=== PATIENT | male | born 1960 | race African-American/Black ===

== ENCOUNTER 2017-03-15 19:17 | Inpatient (IN) | payer MEDICAID ==
--- NOTE | 2017-03-15 19:47 | CPEKG ---
Heart Rate: 113 RR Interval: 531 P-R Interval: 140 QRSD Interval: 150 QT Interval: 396 QTC Interval: 543 P [place]: 68 QRS [place]: -57 T Wave [place]: 131 EKG Severity - ABNORMAL ECG - EKG Impression: SINUS TACHYCARDIA EKG Impression: BIATRIAL ABNORMALITIES EKG Impression: LEFT BUNDLE BRANCH BLOCK Electronically Signed By: Harsh Parra 15-Mar-2017 23:01:15
--- NOTE | 2017-03-15 19:47 | EDPHY ---
H & P Time Seen by Provider: 03/15/17 19:47 HPI/ROS: CHIEF COMPLAINT: Shortness of breath HISTORY OF PRESENT ILLNESS: This 56-year-old man moved from [place] to [place] 1 year ago. He has a history of congestive heart failure or fluid on his lungs , COPD or asthma and hypertension. His only medication is ProAir. He does not have history of venous thromboembolism. Over the last week he started getting slowly more short of breath and then last night he woke up in the middle the night short of breath and had to stand up for 15 minutes feel better. This is not associated with chest pain. He has had a little bit of yellow sputum and cough over the past week. No leg swelling or leg pain. REVIEW OF SYSTEMS: Eye: no change in vision ENT: no sore throat Cardiac: No palpitations or syncope Pulmonary: HPI Abdomen: no vomiting, diarrhea, abdominal pain Musculoskeletal: no back pain Skin: no rash Neuro: no headache Constitutional: no fever : no urinary symptoms A comprehensive 10 point review of systems is otherwise negative aside from elements mentioned in the history of present illness. PAST MEDICAL HISTORY: CHF, COPD, hypertension Social history: Tobacco smoker General Appearance: Alert and conversant, cooperative. Eyes: No scleral icterus. ENT, Mouth: Normal mucous membranes. Respiratory: Basilar crackles but speaks in full sentences Cardiovascular: Regular rate and rhythm. Tachycardic, no murmur. Gastrointestinal: Abdomen is soft and non tender. Neurological: Alert and oriented x3. Normally conversant. Face symmetric, normal movement and sensation in all extremities. Skin: Warm and dry, no rashes. Musculoskeletal: No peripheral edema and no joint swelling. No calf tenderness. Psychiatric: Not agitated. Emergency Department course/MDM: EKG abnormal reviewed with Jimenez at 1999. Plan for EKG, troponin, D-dimer and BNP. Chest x-ray 2047: Labs reviewed including BNP greater than 3000, elevated D-dimer, chest x- ray showing pulmonary edema. Plan to admit to the hospital for treatment of CHF. CT angio to evaluate for pulmonary embolism; low dose contrast used. D-dimer greater than 3. Benefit of knowing if PE present greater than contrast risk in my clinical judgment. 2099: Results discussed with the patient, admission hospitalist. 2039: lasix 20mg IV, nitroglycerin drip started. CT shows no pulmonary embolism , multifocal infiltrates which could be pneumonia or pulmonary edema. Clinically I think CHF is much more likely than pneumonia. Smoking Status: Current some day smoker Constitutional: Initial Vital Signs Temperature (C) 36.4 C 03/15/17 19:22 Heart Rate 119 H 03/15/17 19:22 Respiratory Rate 18 03/15/17 19:22 Blood Pressure 118/113 H 03/15/17 19:22 O2 Sat (%) 96 03/15/17 19:22 O2 Delivery Mode Nasal Cannula O2 (L/minute) 2 Allergies/Adverse Reactions: No Known Allergies Allergy (Unverified 03/15/17 19:26) Home Medications: Medication Instructions Recorded Proair Hfa 03/15/17 Medical Decision Making - Diagnostics EKG Interpretation: 12-lead EKG interpreted by me; official reading is in trace master. My interpretation is sinus tachycardia with left bundle branch block. Imaging Results: Imaging Impressions Chest X-Ray 03/15/17 19:56 Impression: 1. CHF with early pulmonary edema although an underlying pneumonia cannot be excluded. Chest/Thorax CTA 03/15/17 21:02 Impression: 1. No evidence for acute pulmonary embolic disease. 2. Patchy peripheral infiltrates raising the possibility of developing multifocal pneumonia vs. patchy peripheral pulmonary edema from failure. Results called to Dr. Parra at 10:08 PM. General information for patients regarding this examination can be found at [email or web address]. If you have questions or comments about this report, please contact me at (hospital) or [phone] (cell). Differential Diagnosis: Differential diagnosis considered for shortness of breath including but not limited to pulmonary infectious process, COPD, asthma, pulmonary embolus and congestive heart failure. Consult/Admit Bed Type: [place] [address] Critical Care Time: Critical care time spent by me, Dr. Parra, exclusively with the care of this patient was 30 minutes, exclusive of PA or DIRECTOR OF REHABILITATION time and exclusive of separate procedures. The organ system at risk was cardiopulmonary and I ordered IV Lasix , IV nitroglycerin, supplemental oxygen, multiple diagnostic studies, discussion with hospitalist; to stabilize the patient and prevent worsening of the patient's condition. - Data Points Laboratory Results: Laboratory Results 03/15/17 19:55 03/15/17 19:55 03/15/17 03/15/17 03/15/17 19:55 19:55 19:55 WBC 7.78 10^3/uL 10^3/uL (3.80-9.50) RBC 4.69 10^6/uL 10^6/uL (4.40-6.38) Hgb 15.1 g/dL g/dL (13.7-17.5) Hct 43.1 % % (40.0-51.0) MCV 91.9 fL fL (81.5-99.8) MCH 32.2 pg pg (27.9-34.1) MCHC 35.0 g/dL g/dL (32.4-36.7) RDW 13.4 % % (11.5-15.2) Plt Count 283 10^3/uL 10^3/uL (150-400) MPV 9.0 fL fL (8.7-11.7) Neut % (Auto) 69.0 % % (39.3-74.2) Lymph % (Auto) 19.3 % % (15.0-45.0) [place] % (Auto) 9.4 % % (4.5-13.0) Eos % (Auto) 1.0 % % (0.6-7.6) Baso % (Auto) 0.9 % % (0.3-1.7) Nucleat RBC Rel Count 0.0 % % (0.0-0.2) Absolute Neuts (auto) 5.37 10^3/uL 10^3/uL (1.70-6.50) Absolute Lymphs (auto) 1.50 10^3/uL 10^3/uL (1.00-3.00) Absolute Monos (auto) 0.73 10^3/uL 10^3/uL (0.30-0.80) Absolute Eos (auto) 0.08 10^3/uL 10^3/uL (0.03-0.40) Absolute Basos (auto) 0.07 10^3/uL 10^3/uL (0.02-0.10) Absolute Nucleated RBC 0.00 10^3/uL 10^3/uL (0-0.01) Immature Gran % 0.4 % % (0.0-1.1) Immature Gran # 0.03 10^3/uL 10^3/uL (0.00-0.10) D-Dimer 3.21 ug/mLFEU H ug/mLFEU (0.00-0.50) Sodium 141 mEq/L mEq/L (134-144) Potassium 4.5 mEq/L mEq/L (3.5-5.2) Chloride 109 mEq/L mEq/L (97-110) Carbon Dioxide 21 mEq/l L mEq/l (22-31) Anion Gap 11 mEq/L mEq/L (8-16) BUN 28 mg/dL H mg/dL (7-23) Creatinine 1.5 mg/dL H mg/dL (0.7-1.3) Estimated GFR 48 Glucose 105 mg/dL H mg/dL (70-100) Calcium 9.1 mg/dL mg/dL (8.5-10.4) Troponin I 0.025 ng/mL ng/mL (0-0.034) NT-Pro-B Natriuret Pep 3030 pg/mL H pg/mL (0-125) Medications Given: Discontinued Medications Furosemide (Lasix Injection) 20 mg IVP EDNOW ONE Stop: 03/15/17 22:38 Last Admin: 03/15/17 22:45 Dose: 20 mg Nitroglycerin/Dextrose (Nitroglycerin 200 Mcg/Ml (Premix)) 250 mls @ 0 mls/hr IV EDNOW ONE; Titrate PRN Reason: Protocol Stop: 03/15/17 22:38 Last Admin: 03/15/17 22:50 Dose: 250 mls Departure - Departure Disposition: [facility] Inpatient Acute Clinical Impression: Acute exacerbation of congestive heart failure Qualifiers: Congestive heart failure type: unspecified congestive heart failure type Qualified Code(s): I50.9 - Heart failure, unspecified Condition: Good
[2017-03-15 20:04] LABS: % IMMATURE GRANULYOCYTES 0.4 % (0.0-1.1); ABSOLUTE IMMATURE GRANULOCYTES 0.03 10^3/uL (0.00-0.10); ADD DIFF? NO; ADD MORPH? NO; ADD SCAN? NO; ATYPICAL LYMPHOCYTE FLAG 40 (0-99); FRAGMENT RBC FLAG 0 (0-99); HEMATOCRIT 43.1 % (40.0-51.0); HEMOGLOBIN 15.1 g/dL (13.7-17.5); LEFT SHIFT FLG 0 (0-99); LIPEMIA HEMOLYSIS FLAG 90 (0-99); MEAN CELL HEMOGLOBIN 32.2 pg (27.9-34.1); MEAN CELL VOLUME 91.9 fL (81.5-99.8); PLATELET CLUMPS FLAG 0 (0-99); PLATELET COUNT 283 10^3/uL (150-400); RED BLOOD CELL COUNT 4.69 10^6/uL (4.40-6.38); RED CELL DISTRIBUTION WIDTH 13.4 % (11.5-15.2)
[2017-03-15 20:15] LABS: ANION GAP 11 mEq/L (8-16); CALCIUM 9.1 mg/dL (8.5-10.4); CARBON DIOXIDE 21 mEq/l (22-31); CHLORIDE 109 mEq/L (97-110); CREATININE 1.5 mg/dL (0.7-1.3); GLOMERULAR FILTRATION RATE 48; GLUCOSE 105 mg/dL (70-100); POTASSIUM 4.5 mEq/L (3.5-5.2); SODIUM 141 mEq/L (134-144)
[2017-03-15 20:27] LABS: TROPONIN I 0.025 ng/mL (0-0.034)
[2017-03-15] MEDS ORDERED: IOPAMIDOL (ISOVUE 370) 100 ML BTL IV ONE (21:09)
[2017-03-15] MEDS ORDERED: NITROGLYCERIN/DEXTROSE 250 ML IV ONE (22:37)
[2017-03-15] MEDS ORDERED: FUROSEMIDE 40 MG/4 ML VIAL IVP ONE (22:37)
[2017-03-15] MEDS ORDERED: FUROSEMIDE 20 MG/2 ML VIAL ONE (22:38)
[2017-03-15] MEDS ORDERED: NITROGLYCERIN/D5W 50 MG/250 ML BOTTLE IV ONE (22:39)
[2017-03-16] MEDS ORDERED: oxyCODONE IR 5 MG TAB PO PRN (00:41)
[2017-03-16] MEDS ORDERED: ONDANSETRON DISINTEGRATING 4 MG TAB PO PRN (00:41)
[2017-03-16] MEDS ORDERED: LORazepam 0.5 MG TAB PO PRN (00:41)
[2017-03-16] MEDS ORDERED: ONDANSETRON 4 MG/2 ML VIAL IVP PRN (00:41)
[2017-03-16] MEDS ORDERED: ACETAMINOPHEN 325 MG TAB PO PRN ×2 (00:41→09:54)
[2017-03-16] MEDS ORDERED: ALBUTEROL 3 ML DEYVIAL IH PRN (00:41)
[2017-03-16] MEDS ORDERED: HYDROmorphONE/DILAUDID 1 MG/ML SYR IVP PRN (00:41)
[2017-03-16] MEDS ORDERED: hydrALAZINE 20 MG/ML VIAL IVP PRN (00:48)
[2017-03-16 01:52] LABS: COLOR PALE YELLOW; LEUKOCYTE ESTERASE,URINE NEGATIVE (NEGATIVE); NITRITE,URINE NEGATIVE (NEGATIVE)
--- NOTE | 2017-03-16 02:18 | PDGENHP ---
History and Physical - Chief Complaint sob - History of Present Illness 56 yo M w/PMH of uncontrolled HTN, systolic heart failure with prior EF of 34% as well as presumed copd and/or ILD presenting with sob as well as orthopnea and LOJA for the last 1-2 weeks. He had a bout of sob the night prior to admission where he became so profoundly short of breath that he was concerned he was going to . He has been unable to lie down flat at night without significant sob, that only gets better if he stands up. He has also had increased cough and increased sputum production and notes that the sputum has been thick and dark yellow which is not normal for him. He has not had fever or chills. He has not had any swelling or pain in his legs. He denies chest pain. Of note, he recently went off of all his cardiac medications that included lasix , carvedilol and lisinopril. He both felt that he was having side effects from these medications, largely fatigue and weight gain, but also was hoping to control his health issues through diet and natural supplements. He initially went on "juice plus" but recently switched from that to "usona" and "serapepptase". 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 He initially had follow up with pulmonary at [facility], but has not seen them in some time either. His prior care was through [facility]. His initial heart and pulmonary issues were diagnosed one year ago and began shortly after he had exposure to some type of chemicals through his work with the [employer]. He was hospitalized at [facility]. He never had planned ischemic evaluation for his newly diagnosed chf. History Information - Allergies/Home Medication List Allergies/Adverse Reactions: No Known Allergies Allergy (Unverified 03/15/17 19:26) Home Medications: Proair Hfa 03/15/17 [Last Taken Unknown] I have personally reviewed and updated: family history, medical history, social history, surgical history - Past Medical History CHF (systolic with EF of 34%, thought to be due to uncontrolle htn +/- ischemic- -never had ischemic w/u), COPD, hypertension - Surgical History Reports: no pertinent surgical hx - Family History Additional family history: mother with lupus. father in his 80s healthy. 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 Review of Systems ROS: 10pt was reviewed & negative except for what was stated in HPI & below Physical Exam Temp Pulse Resp BP Pulse Ox 36.3 C 94 16 155/98 H 95 03/16/17 00:00 03/16/17 00:00 03/16/17 00:00 03/16/17 00:00 03/16/17 00:00 O2 (L/minute) 2 Constitutional: no apparent distress, appears nourished Eyes: PERRL, anicteric sclera Ears, Nose, Mouth, Throat: moist mucous membranes, hearing normal Cardiovascular: regular rate and rhythym, systolic murmur, No edema Respiratory: no respiratory distress, inspiratory crackles (bilateral bases, L>R ) Gastrointestinal: normoactive bowel sounds, soft, non-tender abdomen Genitourinary: no bladder tenderness Skin: warm, normal color Musculoskeletal: full muscle strength, no muscle tenderness Neurologic: AAOx3 Psychiatric: interacting appropriately, not anxious, not encephalopathic Lab Data & Imaging Review 03/15/17 19:55 03/15/17 19:55 WBC 7.78 10^3/uL (3.80-9.50) 03/15/17 19:55 RBC 4.69 10^6/uL (4.40-6.38) 03/15/17 19:55 Hgb 15.1 g/dL (13.7-17.5) 03/15/17 19:55 Hct 43.1 % (40.0-51.0) 03/15/17 19:55 MCV 91.9 fL (81.5-99.8) 03/15/17 19:55 MCH 32.2 pg (27.9-34.1) 03/15/17 19:55 MCHC 35.0 g/dL (32.4-36.7) 03/15/17 19:55 RDW 13.4 % (11.5-15.2) 03/15/17 19:55 Plt Count 283 10^3/uL (150-400) 03/15/17 19:55 MPV 9.0 fL (8.7-11.7) 03/15/17 19:55 Neut % (Auto) 69.0 % (39.3-74.2) 03/15/17 19:55 Lymph % (Auto) 19.3 % (15.0-45.0) 03/15/17 19:55 [place] % (Auto) 9.4 % (4.5-13.0) 03/15/17 19:55 Eos % (Auto) 1.0 % (0.6-7.6) 03/15/17 19:55 Baso % (Auto) 0.9 % (0.3-1.7) 03/15/17 19:55 Nucleat RBC Rel Count 0.0 % (0.0-0.2) 03/15/17 19:55 Absolute Neuts (auto) 5.37 10^3/uL (1.70-6.50) 03/15/17 19:55 Absolute Lymphs (auto) 1.50 10^3/uL (1.00-3.00) 03/15/17 19:55 Absolute Monos (auto) 0.73 10^3/uL (0.30-0.80) 03/15/17 19:55 Absolute Eos (auto) 0.08 10^3/uL (0.03-0.40) 03/15/17 19:55 Absolute Basos (auto) 0.07 10^3/uL (0.02-0.10) 03/15/17 19:55 Absolute Nucleated RBC 0.00 10^3/uL (0-0.01) 03/15/17 19:55 Immature Gran % 0.4 % (0.0-1.1) 03/15/17 19:55 Immature Gran # 0.03 10^3/uL (0.00-0.10) 03/15/17 19:55 D-Dimer 3.21 ug/mLFEU (0.00-0.50) H 03/15/17 19:55 Sodium 141 mEq/L (134-144) 03/15/17 19:55 Potassium 4.5 mEq/L (3.5-5.2) 03/15/17 19:55 Chloride 109 mEq/L (97-110) 03/15/17 19:55 Carbon Dioxide 21 mEq/l (22-31) L 03/15/17 19:55 Anion Gap 11 mEq/L (8-16) 03/15/17 19:55 BUN 28 mg/dL (7-23) H 03/15/17 19:55 Creatinine 1.5 mg/dL (0.7-1.3) H 03/15/17 19:55 Estimated GFR 48 03/15/17 19:55 Glucose 105 mg/dL (70-100) H 03/15/17 19:55 Calcium 9.1 mg/dL (8.5-10.4) 03/15/17 19:55 Troponin I 0.025 ng/mL (0-0.034) 03/15/17 19:55 NT-Pro-B Natriuret Pep 3030 pg/mL (0-125) H 03/15/17 19:55 Urine Color PALE YELLOW 03/16/17 01:30 Urine Appearance CLEAR 03/16/17 01:30 Urine pH 5.0 (5.0-7.5) 03/16/17 01:30 Ur Specific Power 1.011 (1.002-1.030) 03/16/17 01:30 Urine Protein NEGATIVE (NEGATIVE) 03/16/17 01:30 Urine Ketones NEGATIVE (NEGATIVE) 03/16/17 01:30 Urine Blood NEGATIVE (NEGATIVE) 03/16/17 01:30 Urine Nitrate NEGATIVE (NEGATIVE) 03/16/17 01:30 Urine Bilirubin NEGATIVE (NEGATIVE) 03/16/17 01:30 Urine Urobilinogen NEGATIVE EU (0.2-1.0) 03/16/17 01:30 Ur Leukocyte Esterase NEGATIVE (NEGATIVE) 03/16/17 01:30 Ur Culture Indicated? NOT INDICATED (NI) 03/16/17 01:30 Ur Random Creatinine 15.1 mg/dL 03/16/17 01:30 Ur Random Sodium 115 mEq/L (30-90) H 03/16/17 01:30 Urine Glucose NEGATIVE (NEGATIVE) 03/16/17 01:30 Visualized and Interpreted Chest x-ray results: Yes Chest X-Ray results: other (chf with pulmonary edema versus pna) Visualized and Interpreted imaging results: Yes Interpretation: CTA: no PE, patchy bilateral infiltrates--multifocal pna versus pulmonary edema EKG Interpretation: Positive for: left bundle branch block (present on ecg from last year) EKG additional interpertation: sinus tach Assessment & Plan Assessment: 56 yo M with PMH of systolic heart failure, uncontrolled htn as well as copd and ? ILD presenting with sob and acute decompensated chf with likely concurrent pna # acute on chronic systolic heart failure: with evidence of pulmonary edema and elevated bnp in setting of going off of all cardiac meds including lasix. Has not had appropriate f/u with cardiology. Has gotten IV lasix x 1 and will continue so long as creatinine not increasing more. Echo in am. Trend trops, monitor on tele. Has not had ischemic evaluation in the past despite new dx CHF with hypokinesis of LV on last echo. Cardiology consulted--stress vs cath while in house. # multifocal pna: suspect a component of pna as well given sxs including worsening cough and purulent appearing sputum suspect CAP concurrent with above. Not septic. Starting ctx/azithro, will obtain blood and sputum cultures. Could likely narrow abx quickly if responds well to initial tx. # copd with acute exacerbation: patient had f/u at [facility] and apparently underwent PFTs--will attempt to obtain records. Prior CT showing ground glass opacities concerning for ILD in setting of having had chemical exposure. Currently no significant wheeze or hypoxia. Nebs/abx as above. # hypertensive urgency: in the setting of being off of his bp meds, started on nitro gtt in ER, will titrate off as able, will resume his prior bp regimen along with prn hydralazine # lois: appears euvolemic but occurring in setting of several days of not feeling well so likely pre renal. Has had in the past as well, baseline creat seems closer to 1.1 though limited labs available. Will get urine studies to calculate fena, monitor closely while on diuresis. UOP has been good. # tobacco use: counseled on importance of cessation, patch/gum while in house # IP status, multiple active comorbid conditions requiring IP stay Patient new to my care. Old records reviewed including [facility] records from [facility] stay in 2016. Care plan reviewed with ER doctor including plans for tx of chf.
[2017-03-16] MEDS ORDERED: LABETALOL HCL 5 MG/ML 20 ML MDV IVP PRN (02:46)
[2017-03-16 02:53] LABS: ALANINE AMINOTRANSFERASE 64 IU/L (21-72); ALBUMIN 3.4 g/dL (3.5-5.0); ALKALINE PHOSPHATASE 112 IU/L (38-126); ASPARTATE AMINOTRANSFERASE 43 IU/L (17-59); BILIRUBIN,TOTAL 1.8 mg/dL (0.1-1.4); BILIRUBIN-CONJUGATED 0.3 mg/dL (0.0-0.5); BILIRUBIN-UNCONJUGATED 1.5 mg/dL (0.0-1.1); CHOLESTEROL 107 mg/dL (140-220); CHOLESTEROL/HDL RATIO 3.82 RATIO (1.00-4.97); HIGH DENSITY LIPOPROTEIN 28 mg/dL (40-65); LDL/HDL RATIO 2.36 RATIO (1.00-3.64); LOW DENSITY LIPOPROTEIN 66 mg/dL (80-100); NON-HIGH DENSITY LIPOPROTEIN 79 mg/dL (90-129); TOTAL PROTEIN 6.3 g/dL (6.3-8.2); TRIGLYCERIDE 69 mg/dL (40-150); VERY LOW DENSITY LIPOPROTEINS 13 mg/dL (8-25)
[2017-03-16] MEDS: AZITHROMYCIN IV 500 MG in D5W 250 ML IV SCH ×2 (03:07→21:01)
[2017-03-16] MEDS: CARVEDILOL 6.25 MG TAB PO SCH ×3 (03:07→18:27)
[2017-03-16] MEDS: LISINOPRIL 20 MG TAB PO SCH ×2 (03:08→08:56)
[2017-03-16] MEDS: IPRATROPIUM/ALBUTEROL 3 ML DEYVIAL IH SCH ×4 (06:15→20:51)
[2017-03-16] MEDS: ASPIRIN EC 81 MG TAB PO SCH (08:55)
[2017-03-16] MEDS ORDERED: FUROSEMIDE 20 MG/2 ML VIAL IVP SCH (09:00)
[2017-03-16 09:28] LABS: % IMMATURE GRANULYOCYTES 0.3 % (0.0-1.1); ABSOLUTE IMMATURE GRANULOCYTES 0.03 10^3/uL (0.00-0.10); ADD DIFF? NO; ADD MORPH? NO; ADD SCAN? NO; ATYPICAL LYMPHOCYTE FLAG 10 (0-99); FRAGMENT RBC FLAG 0 (0-99); HEMATOCRIT 41.2 % (40.0-51.0); HEMOGLOBIN 14.2 g/dL (13.7-17.5); LEFT SHIFT FLG 0 (0-99); LIPEMIA HEMOLYSIS FLAG 90 (0-99); MEAN CELL HEMOGLOBIN 32.6 pg (27.9-34.1); MEAN CELL HEMOGLOBIN CONCENTR. 34.5 g/dL (32.4-36.7); MEAN CELL VOLUME 94.5 fL (81.5-99.8); MEAN PLATELET VOLUME 9.4 fL (8.7-11.7); PLATELET CLUMPS FLAG 0 (0-99); PLATELET COUNT 266 10^3/uL (150-400); RED BLOOD CELL COUNT 4.36 10^6/uL (4.40-6.38); RED CELL DISTRIBUTION WIDTH 13.6 % (11.5-15.2)
--- NOTE | 2017-03-16 09:44 | PDCARCONS ---
Cardiology Consult Reason for Consult: History of CHF Chief Complaint: Dyspnea with PND Requesting Physician: Zhao History of Present Illness: Patient is a 56 y/o male with history of ILD/COPD (followed by [facility] in the past), CHF (uncertain etiology for this diagnosis with EF of 30-35% in the past), with further history (reportedly) of "uncontrolled" HTN, but no documentation of HLP or DM, who presented to [facility] with complaints of progressive dyspnea. Symptoms, according to the patient, have been noted for the last two weeks, but acute progression of symptoms was noted about 24 hours ago. Shortness of breath has been a chronic symptom. In the remote past, the diagnosis of "congestive heart failure" was rendered, and therapy on beta blockers, ACEi, and diuretics were started. About six months ago, the patient decided to take therapy into a more holistic approach, and the aforementioned therapies were all stopped in favor of non traditional therapies. The patient states that he had been doing and feeling well with this transition. No formal cardiology follow up had been performed for over one year. The patient denies chest pains and pressure. No lower extremity swelling had been noted. No dizziness or diaphoresis. Possible episodes of fevers were recently noted. 12 point review of symptoms was negative with exceptions as delineated above. History Information - Allergies/Home Medication List Allergies/Adverse Reactions: No Known Allergies Allergy (Unverified 03/15/17 19:26) Home Medications: Herbals/Supplements -Info Only 1 ea PO AD 03/16/17 [Last Taken Unknown] I have personally reviewed and updated: family history, medical history, social history, surgical history - Past Medical History CHF, hypertension - Surgical History Reports: no pertinent surgical hx - Family History Additional family history: lupus - Social History Smoking Status: Current some day smoker (down to several cigs/day--previously 15 pack year smoking hx) Alcohol Use: Occasionally Drug Use: None Cardiac History - Cardiac History Cardiac Risk Factors: hypertension (>140/90), male Timing/Duration: Weeks Severity: mild Severity Scale: 7 Activities at Onset: activity Modifying Factors: improves with: other (standing up and cool air) Associated Symptoms: shortness of breath SATINDER Risk Evaluation age greater or equal to 65: no greater or equal to 3 CAD risk factors: no known CAD(stenosis greater or eqaul to 50%): no ASA use in past 7 days: no severe angina(greater or equal to 2 episodes in 24hrs): no EKG ST changes greater or equal to 0.5mm: no positive cardiac marker: no Total Score: 0 SATINDER Score: 4.7% risk Physical Exam Temp Pulse Resp BP Pulse Ox 36.6 C 80 18 139/87 H 94 03/16/17 08:00 03/16/17 08:00 03/16/17 08:00 03/16/17 08:00 03/16/17 08:00 O2 (L/minute) 2 Constitutional: no apparent distress, appears nourished, not in pain Eyes: PERRL Ears, Nose, Mouth, Throat: moist mucous membranes, hearing normal Cardiovascular: regular rate and rhythym, pulses symmetric bilaterally, No JVD, No edema Peripheral Pulses: 2+: dorsalis-pedis (R), dorsalis-pedis (L) Respiratory: no respiratory distress, reduced air movement, inspiratory crackles , No respiratory distress Gastrointestinal: normoactive bowel sounds Skin: warm, normal color, no rashes or abrasions Musculoskeletal: full muscle strength, no muscle tenderness, normal joint ROM Neurologic: AAOx3, CN II-XII Intact Psychiatric: interacting appropriately, not anxious, not encephalopathic Lab and Imaging 03/16/17 09:11 03/15/17 19:55 WBC 9.17 10^3/uL (3.80-9.50) 03/16/17 09:11 RBC 4.36 10^6/uL (4.40-6.38) L 03/16/17 09:11 Hgb 14.2 g/dL (13.7-17.5) 03/16/17 09:11 Hct 41.2 % (40.0-51.0) 03/16/17 09:11 MCV 94.5 fL (81.5-99.8) 03/16/17 09:11 MCH 32.6 pg (27.9-34.1) 03/16/17 09:11 MCHC 34.5 g/dL (32.4-36.7) 03/16/17 09:11 RDW 13.6 % (11.5-15.2) 03/16/17 09:11 Plt Count 266 10^3/uL (150-400) 03/16/17 09:11 MPV 9.4 fL (8.7-11.7) 03/16/17 09:11 Neut % (Auto) 76.6 % (39.3-74.2) H 03/16/17 09:11 Lymph % (Auto) 15.3 % (15.0-45.0) 03/16/17 09:11 Island % (Auto) 6.4 % (4.5-13.0) 03/16/17 09:11 Eos % (Auto) 0.7 % (0.6-7.6) 03/16/17 09:11 Baso % (Auto) 0.7 % (0.3-1.7) 03/16/17 09:11 Nucleat RBC Rel Count 0.0 % (0.0-0.2) 03/16/17 09:11 Absolute Neuts (auto) 7.03 10^3/uL (1.70-6.50) H 03/16/17 09:11 Absolute Lymphs (auto) 1.40 10^3/uL (1.00-3.00) 03/16/17 09:11 Absolute Monos (auto) 0.59 10^3/uL (0.30-0.80) 03/16/17 09:11 Absolute Eos (auto) 0.06 10^3/uL (0.03-0.40) 03/16/17 09:11 Absolute Basos (auto) 0.06 10^3/uL (0.02-0.10) 03/16/17 09:11 Absolute Nucleated RBC 0.00 10^3/uL (0-0.01) 03/16/17 09:11 Immature Gran % 0.3 % (0.0-1.1) 03/16/17 09:11 Immature Gran # 0.03 10^3/uL (0.00-0.10) 03/16/17 09:11 D-Dimer 3.21 ug/mLFEU (0.00-0.50) H 03/15/17 19:55 Sodium 141 mEq/L (134-144) 03/15/17 19:55 Potassium 4.5 mEq/L (3.5-5.2) 03/15/17 19:55 Chloride 109 mEq/L (97-110) 03/15/17 19:55 Carbon Dioxide 21 mEq/l (22-31) L 03/15/17 19:55 Anion Gap 11 mEq/L (8-16) 03/15/17 19:55 BUN 28 mg/dL (7-23) H 03/15/17 19:55 Creatinine 1.5 mg/dL (0.7-1.3) H 03/15/17 19:55 Estimated GFR 48 03/15/17 19:55 Glucose 105 mg/dL (70-100) H 03/15/17 19:55 Calcium 9.1 mg/dL (8.5-10.4) 03/15/17 19:55 Total Bilirubin 1.8 mg/dL (0.1-1.4) H 03/16/17 02:10 Conjugated Bilirubin 0.3 mg/dL (0.0-0.5) 03/16/17 02:10 Unconjugated Bilirubin 1.5 mg/dL (0.0-1.1) H 03/16/17 02:10 AST 43 IU/L (17-59) 03/16/17 02:10 ALT 64 IU/L (21-72) 03/16/17 02:10 Alkaline Phosphatase 112 IU/L (38-126) 03/16/17 02:10 Troponin I 0.014 ng/mL (0-0.034) 03/16/17 02:10 NT-Pro-B Natriuret Pep 3030 pg/mL (0-125) H 03/15/17 19:55 Total Protein 6.3 g/dL (6.3-8.2) 03/16/17 02:10 Albumin 3.4 g/dL (3.5-5.0) L 03/16/17 02:10 Triglycerides 69 mg/dL (40-150) 03/16/17 02:10 Cholesterol 107 mg/dL (140-220) L 03/16/17 02:10 Cholesterol Risk Factr 0.6 (0.2-1.0) 03/16/17 02:10 LDL Cholesterol, Calc 66 mg/dL (80-100) L 03/16/17 02:10 LDL Risk Factor 0.8 (0.2-1.0) 03/16/17 02:10 VLDL Cholesterol 13 mg/dL (8-25) 03/16/17 02:10 Non-HDL Cholesterol 79 mg/dL (90-129) L 03/16/17 02:10 HDL Cholesterol 28 mg/dL (40-65) L 03/16/17 02:10 LDL/HDL Ratio 2.36 RATIO (1.00-3.64) 03/16/17 02:10 Cholesterol/HDL Ratio 3.82 RATIO (1.00-4.97) 03/16/17 02:10 TSH 1.390 uIU/mL (0.465-4.680) 03/16/17 02:10 Urine Color PALE YELLOW 03/16/17 01:30 Urine Appearance CLEAR 03/16/17 01:30 Urine pH 5.0 (5.0-7.5) 03/16/17 01:30 Ur Specific [place] 1.011 (1.002-1.030) 03/16/17 01:30 Urine Protein NEGATIVE (NEGATIVE) 03/16/17 01:30 Urine Ketones NEGATIVE (NEGATIVE) 03/16/17 01:30 Urine Blood NEGATIVE (NEGATIVE) 03/16/17 01:30 Urine Nitrate NEGATIVE (NEGATIVE) 03/16/17 01:30 Urine Bilirubin NEGATIVE (NEGATIVE) 03/16/17 01:30 Urine Urobilinogen NEGATIVE EU (0.2-1.0) 03/16/17 01:30 Ur Leukocyte Esterase NEGATIVE (NEGATIVE) 03/16/17 01:30 Ur Culture Indicated? NOT INDICATED (NI) 03/16/17 01:30 Ur Random Creatinine 15.1 mg/dL 03/16/17 01:30 Ur Random Sodium 115 mEq/L (30-90) H 03/16/17 01:30 Urine Glucose NEGATIVE (NEGATIVE) 03/16/17 01:30 Visualized and Interpreted Chest x-ray results: Yes Chest X-ray Interpretation: normal heart size, infiltrate, effusion EKG Interpretation: Positive for: left bundle branch block, NS ST wave abnormalities Telemetry: normal sinus rhythm with LBBB pattern Echocardiogram: pending A/P Assessment: Patient is a 56 y/o male with diagnosis of congestive heart failure with LBBB pattern on ECG, HTN, and ILD/COPD, who presented to [facility] with complaints of progressive dyspnea. Patient was seen in the past with therapy on beta blockers , ACEi, and diuretics, but all these therapies were stopped in favor of more "holistic" therapies. Patient began to appreciate more significant dyspnea about two weeks ago, but this rapidly progressed in severity within the last 24 hours. From review of notes, there does not appear to be a formal assessment of the etiology for the "CHF" diagnosis - no angiogram and no stress testing. Given the concerns about possible pneumonia, therapy with IV antibiotics were started with this admission. Echocardiogram has been completed (but not downloaded for review at the time of this note). Today, the patient reports that he is feeling much better. No active cardiovascular complaints were voiced today. Plan: Several options were discussed with the patient. Would resume therapy on Coreg (3.125 mg twice per day) and Lisinopril (2.5 mg per day) with ongoing diuresis. Discussion about MPI testing was undertaken, but would prefer angiography given the diagnosis of congestive heart failure in setting of LBBB pattern to more completely answer the questions surrounding this diagnosis. Would resume cardiovascular therapies today and tomorrow, and arrange for angiography, non emergently, on Saturday morning.
[2017-03-16] MEDS ORDERED: diphenhydrAMINE 25 MG CAP PO ONE ×2 (09:54→13:45)
[2017-03-16] MEDS ORDERED: NITROGLYCERIN 0.4 MG BTL SL PRN (09:54)
[2017-03-16] MEDS ORDERED: ASPIRIN EC 325 MG TAB PO ONE (09:54)
[2017-03-16] MEDS ORDERED: TEMAZEPAM 15 MG CAP PO PRN (09:54)
[2017-03-16] MEDS ORDERED: DIAZEPAM 5 MG TAB PO ONE (09:54)
--- NOTE | 2017-03-16 10:07 | ECHO ---
[id number] + + [phone] : : [place] [address] : : [phone] + + Adult Echocardiographic Report + ---------+ :Name: GERI RUIZ Liz Date: 03/16/2017 07:35 AM : : Hospital Admission Number: [id number] Lilian toussaint: 203: :: 1960 Gender: Male Height: 977 in : :Age: 56 yrs Race: PTD : :Reason For Study: new CHF : + ---------+ MMode/2D Measurements \T\ Calculations IVSd: 1.2 cm LVIDd: 6.4 cm FS: 13.3 % MV Diam: 4.9 cm LVPWd: 1.6 cm LVIDs: 5.5 cm EDV(Teich): 204.9 ml ESV(Teich): 147.6 ml EF(Teich): 28.0 % Ao root diam: LVOT diam: 2.1 cmLVLd ap4: 9.0 cm SV(MOD-sp4): 3.1 cm LVOT area: EDV(MOD-sp4): 40.0 ml LA dimension: 154.0 ml 4.4 cm 3.6 cm2 LVLs ap4: 8.1 cm ESV(MOD-sp4): 114.0 ml EF(MOD-sp4): 26.0 % Normal Measurement Values: + + :LVIDd (3.5-5.7cm) IVSd (0.6-1.1cm) LVPWd (0.6-1.1cm) Aortic Root (2.0-3.7cm)Left Atrium (1.5-4.0cm): :LV Vol(d) (76-115ml) LV Vol(s) (29-48ml) Ejec Fraction (50-65%)PV Román (0.6- 1.2m/s) TV Román (0.4-1.0m/s) : :MV E Román (0.8-1.0m/s)MV A Román (0.3-1.0m/s)LVOT Román (0.7-1.2m/s) Asc Ao Román ( 0.9-1.8m/s) : + + Doppler Measurements \T\ Calculations MV E max román: MV V2 mean: Ao mean PG: AI max román: 123.4 cm/sec 87.2 cm/sec 7.7 mmHg 470.6 cm/sec MV A max román: MV mean P.4 mmHgAo V2 mean: AI max P.0 cm/sec MV V2 VTI: 27.6 cm 127.2 cm/sec 88.8 mmHg MV E/A: 1.1 MV area (1 diam): Ao V2 VTI: AI dec slope: 18.9 cm2 39.4 cm 356.4 cm/sec2 MVA(VTI): 2.2 cm2 JERRICA(I,D): 1.5 cm2AI P1/2t: MV Flow area(1diam): 386.7 msec 18.9 cm2 LV V1 max: MR max román: MR(RF 1 diam): SV(MV 1 diam): 85.9 cm/sec 469.1 cm/sec 4.2 % 521.5 ml LV V1 max PG: MR max P.0 mmHg SV(LVOT): 60.6 ml 3.0 mmHg LV V1 mean P.8 mmHg LV V1 mean: 62.6 cm/sec LV V1 VTI: 16.7 cm TR max román: RF(MV,Ao)(1 diam): 170.5 cm/sec 0.41 TR max PG: RF(MV,LVOT)(1diam): 11.6 mmHg 0.88 RAP systole: 5.0 mmHg RVSP(TR): 16.6 mmHg Left Ventricle The left ventricle is mildly dilated. There is moderate concentric left ventricular hypertrophy. EF estimate is 20%. There is Doppler evidence for diastolic dysfunction. There is moderate to severe global hypokinesis of the left ventricle. Right Ventricle The right ventricle is normal in size and function. Atria The left atrium is moderately dilated. Right atrial size is normal. The interatrial septum is intact with no evidence for an atrial septal defect. Mitral Valve The mitral valve is normal in structure and function. There is moderate mitral regurgitation. Tricuspid Valve Normal tricuspid valve. There is mild tricuspid regurgitation. Right ventricular systolic pressure is normal. Aortic Valve The aortic valve is trileaflet. The aortic valve opens well. Severely calcified RCC of the aortic valve. There is no aortic stenosis. Moderate aortic regurgitation. Pulmonic Valve The pulmonic valve is normal in structure and function. There is no pulmonic valvular regurgitation. Great Vessels The aortic root is normal size. Pericardium/Pleural There is no pericardial effusion. Conclusion A complete two-dimensional transthoracic echocardiogram was performed (2D, M-mode, Doppler and color flow Doppler). (1) Left ventricular systolic ejection fraction was severely reduced (20%) - global hypokinesis was noted (2) Moderate concentric left ventricular hypertrophy (3) Diastolic dysfunction was present (4) Grossly normal right ventricular size with mild reduction in systolic function (5) Moderate left atrial dilation with mild right atrial dilation (6) Moderate mitral regurgitation (7) Trileaflet aortic valve with moderate sclerosis (to the RCC), but no stenosis. Moderate insufficiency was noted (8) Mild tricuspid regurgitation - RVSP was grossly normal (9) Grossly normal pulmonic valve without appreciable insufficiency noted (10) No comparison echocardiograms Final Reading Physician: Abe Zamora signed on 03/16/2017 10:05 AM Ordering Physician: Jorje Stoner Performed By: Binta Galloway, EDISON
[2017-03-16 10:33] LABS: ANION GAP 8 mEq/L (8-16); CARBON DIOXIDE 23 mEq/l (22-31); CHLORIDE 108 mEq/L (97-110); CREATININE 1.5 mg/dL (0.7-1.3); GLOMERULAR FILTRATION RATE 48; GLUCOSE 99 mg/dL (70-100); MAGNESIUM 2.2 mg/dL (1.6-2.3); POTASSIUM 4.5 mEq/L (3.5-5.2); SODIUM 139 mEq/L (134-144)
[2017-03-16] MEDS: ENOXAPARIN 40 MG/0.4 ML SYR SC SCH (11:06)
--- NOTE | 2017-03-16 12:40 | HOSPPROG ---
Hospitalist Progress Note Assessment/Plan: 56M PMH CM with sCHF previously worked up at [facility] about a year ago. EF at that time was 34%. Also has COPD and/or ILD seen at [facility]; comes in 1-2 weeks of orthopnea and LOJA. Also increased cough/sputum. Recently went of all his cardiac meds including Lasix, Carvedilol, and Lisinopril. He initiated himself on Juice plus, Usana, and Serrapeptase, in efforts to take a more holistic approach. #. acute sCHF with NYHA FC III-IV symptoms: given IV lasix and feels dyspnea improved echo today shows EF 20% with global HK, DD, RVSF mildly reduced, mod dilated LA/mild dil RA, mod AR, mild TR breathing improved we reviewed goal HR of 50-80/ will watch for heart rate effect with Coreg resumed Lisinopril/ if Cr increases will have to consider switching Hydralazine for afterload reduction reviewed sodium and fluid restrictions transition to PO lasix #. multifocal pna: suspect CAP cont CTZ/azithro for now #. COPD with acute exacerbation: continue breathing treatments #. tobacco abuse: counseled on cessation #. hypertensive urgency: BP improved NTG gtt stopped #. CONCEPCIÓN: previous Cr 1.1 monitor for now #. VTE ppx: Enox #. Dispo: >48 hours for med titration and likely R/LHC Subjective: Feels breathing is improved. Able to lie supine now. No cp, palps, pnd. Objective: Vital Signs Temp Pulse Resp BP Pulse Ox 98.3 F 82 18 147/86 H 94 03/16/17 11:57 03/16/17 11:57 03/16/17 11:57 03/16/17 11:57 03/16/17 11:57 Laboratory Results 03/16/17 09:11 03/16/17 09:11 03/15/17 03/16/17 03/17/17 05:59 05:59 05:59 Intake Total 380 405 Output Total 775 900 Balance -395 495 - Physical Exam Constitutional: no apparent distress, appears nourished Eyes: anicteric sclera Ears, Nose, Mouth, Throat: moist mucous membranes, hearing normal Cardiovascular: regular rate and rhythym, no murmur, rub, or gallop Respiratory: no respiratory distress, inspiratory crackles Gastrointestinal: normoactive bowel sounds, soft, non-tender abdomen Genitourinary: No noel in urethra Skin: warm, normal color Neurologic: AAOx3 Psychiatric: interacting appropriately, not anxious ICD10 Worksheet Patient Problems: Problems Problem Status Onset Acute exacerbation of congestive heart failure Acute
[2017-03-17 04:24] LABS: % IMMATURE GRANULYOCYTES 0.5 % (0.0-1.1); ABSOLUTE IMMATURE GRANULOCYTES 0.04 10^3/uL (0.00-0.10); ADD DIFF? NO; ADD MORPH? NO; ADD SCAN? NO; ATYPICAL LYMPHOCYTE FLAG 20 (0-99); FRAGMENT RBC FLAG 0 (0-99); HEMATOCRIT 40.6 % (40.0-51.0); HEMOGLOBIN 13.6 g/dL (13.7-17.5); LEFT SHIFT FLG 0 (0-99); LIPEMIA HEMOLYSIS FLAG 80 (0-99); MEAN CELL HEMOGLOBIN 32.5 pg (27.9-34.1); MEAN CELL HEMOGLOBIN CONCENTR. 33.5 g/dL (32.4-36.7); MEAN CELL VOLUME 96.9 fL (81.5-99.8); MEAN PLATELET VOLUME 9.6 fL (8.7-11.7); PLATELET CLUMPS FLAG 10 (0-99); PLATELET COUNT 269 10^3/uL (150-400); RED BLOOD CELL COUNT 4.19 10^6/uL (4.40-6.38); RED CELL DISTRIBUTION WIDTH 13.9 % (11.5-15.2)
[2017-03-17 04:50] LABS: ANION GAP 7 mEq/L (8-16); CALCIUM 8.9 mg/dL (8.5-10.4); CARBON DIOXIDE 24 mEq/l (22-31); CHLORIDE 107 mEq/L (97-110); CREATININE 1.5 mg/dL (0.7-1.3); GLOMERULAR FILTRATION RATE 48; GLUCOSE 97 mg/dL (70-100); POTASSIUM 5.3 mEq/L (3.5-5.2); SODIUM 138 mEq/L (134-144)
[2017-03-17] MEDS: IPRATROPIUM/ALBUTEROL 3 ML DEYVIAL IH SCH ×4 (05:43→20:52)
[2017-03-17] MEDS ORDERED: FUROSEMIDE 40 MG TAB PO SCH (09:00)
[2017-03-17] MEDS: ASPIRIN EC 81 MG TAB PO SCH (09:33)
--- NOTE | 2017-03-17 09:46 | PDCARPN ---
Cardiology Progress Note Chief Complaint: No complaints this morning Assessment/Plan: Assessment: 03-17-17 No events overnight, but when the patient was getting a breathing treatment, nausea was noted. On telemetry, there was a change to the morphology of the "T " wave - looking like the patient might have had a keli of atrial flutter (2:1) . Rapid resolution of the arrhythmia/T wave changes were noted (to the degree that a 12 lead ECG could not be performed). Today, the patient reports no complaints. Very good night of sleep last night. Ongoing issues with renal insufficiency (Cr at 1.5). Elevation to the potassium also noted. Pending left heart catheterization in the morning - contingent on renal function at this point. Mild nausea has been the only complaint voiced by the patient since admission. 03-16-17 Patient is a 56 y/o male with history of ILD/COPD (followed by [facility] in the past), CHF (uncertain etiology for this diagnosis with EF of 30-35% in the past), with further history (reportedly) of "uncontrolled" HTN, but no documentation of HLP or DM, who presented to [facility] with complaints of progressive dyspnea. Symptoms, according to the patient, have been noted for the last two weeks, but acute progression of symptoms was noted about 24 hours ago. Shortness of breath has been a chronic symptom. In the remote past, the diagnosis of "congestive heart failure" was rendered, and therapy on beta blockers, ACEi, and diuretics were started. About six months ago, the patient decided to take therapy into a more holistic approach, and the aforementioned therapies were all stopped in favor of non traditional therapies. The patient states that he had been doing and feeling well with this transition. No formal cardiology follow up had been performed for over one year. The patient denies chest pains and pressure. No lower extremity swelling had been noted. No dizziness or diaphoresis. Possible episodes of fevers were recently noted. Plan: (1) Consideration for nephrology involvement (2) Left heart catheterization in the morning - would consider not performing a left ventriculogram to minimize contrast (3) ACEi was stopped given the renal dysfunction (4) Maintain therapy on Coreg given CHF diagnosis and HTN (5) ASA therapy should continue with CV risks (6) Lasix therapy to continue, but would reduce doses - need to determine why elevation in potassium has been noted (7) NPO after midnight for angiography Subjective: No cardiovascular complaints Reviewed/Discussed With: hospitalist, multidisciplinary team Time Spent With Patient: 15 minutes Objective: Vital Signs (8 Hrs) Temp Pulse Resp BP Pulse Ox 03/17/17 07:55 36.9 C 94 18 121/76 H 95 03/17/17 04:00 36.4 C 95 15 133/84 H 99 Intake/Output (24 Hrs) 03/16/17 03/17/17 03/18/17 05:59 05:59 05:59 Intake Total 660 1815 Output Total 975 1210 Balance -315 605 Intake: Oral (ml) 350 1410 IV Intake (ml) 25 405 IV Infused (ml) 285 Azithromycin IV 500 mg In 255 D5w 250 ml @ 255 mls/hr IV DAILY21 [facility] Rx#: [id number] Output: Urine (ml) 975 1210 Toilet 900 Urinal 200 310 Other: Weight 74.5 kg 75.3 kg Intake Quantity Yes Sufficient Number of Voids Toilet 1 3 Number of Stools Toilet 1 Result Diagrams: 03/17/17 03:30 03/17/17 03:30 Cardiac Labs: Cardiac Lab Results (72 Hrs) 03/16/17 03/16/17 09:11 02:10 Troponin I < 0.012 0.014 Telemetry: Sinus rhythm with rates of 85-90 bpm - Physical Exam Constitutional: WDWN, healthy appearing, no apparent distress Eyes: PERRL, EOMI Ears, Nose, Mouth, Throat: moist mucous membranes Cardiovascular: regular rate and rhythm, systolic murmur Peripheral Pulses: 2+: dorsalis-pedis (R), dorsalis-pedis (L) Respiratory: clear to auscultate bilat, no crackles, no wheezes Gastrointestinal: normoactive bowel sounds Skin: no rashes, no edema Musculoskeletal: no muscular tenderness Neurologic: AAOx3, CN II-XII grossly intact Psychiatric: cooperative, interactive, following commands ICD10 Worksheet Patient Problems: Problems Problem Status Onset Acute exacerbation of congestive heart failure Acute
[2017-03-17] MEDS: CARVEDILOL 6.25 MG TAB PO SCH ×3 (11:19→18:08)
[2017-03-17] MEDS: ENOXAPARIN 40 MG/0.4 ML SYR SC SCH (11:20)
--- NOTE | 2017-03-17 15:42 | HOSPPROG ---
Hospitalist Progress Note Assessment/Plan: 56M PMH CM with sCHF previously worked up at [facility] about a year ago. EF at that time was 34%. Also has COPD and/or ILD seen at [facility]; comes in 1-2 weeks of orthopnea and LOJA. Also increased cough/sputum. Recently went of all his cardiac meds including Lasix, Carvedilol, and Lisinopril. He initiated himself on Juice plus, Usana, and Serrapeptase, in efforts to take a more holistic approach. #. acute sCHF with NYHA FC III-IV symptoms: given IV lasix and feels dyspnea improved echo shows EF 20% with global HK, DD, RVSF mildly reduced, mod dilated LA/ mild dil RA, mod AR, mild TR breathing improved we reviewed goal HR of 50-80/ will watch for heart rate effect with Coreg resumed Lisinopril/ being held due to elevated Cr if Cr remains elevatedwill have to consider switching Hydralazine for afterload reduction reviewed sodium and fluid restrictions transitioned to PO lasix/ will decrease dose for tomorrow #. multifocal pna: suspect CAP more likely from CHF abx d/c'd #. COPD with acute exacerbation: continue breathing treatments [facility] records show small airways disease and emphysema #. tobacco abuse: counseled on cessation #. hypertensive urgency: BP improved NTG gtt stopped #. CONCEPCIÓN: previous Cr 1.1 monitor for now #. VTE ppx: Enox #. Dispo: >48 hours for med titration and likely R/LHC Subjective: Reports fatigue. Cough has improved. Objective: Vital Signs Temp Pulse Resp BP Pulse Ox 98.2 F 95 17 141/88 H 96 03/17/17 12:00 03/17/17 12:00 03/17/17 12:00 03/17/17 12:00 03/17/17 12:00 Laboratory Results 03/17/17 03:30 03/17/17 03:30 03/16/17 03/17/17 03/18/17 05:59 05:59 05:59 Intake Total 660 1815 Output Total 975 1210 Balance -315 605 - Physical Exam Constitutional: no apparent distress, appears nourished Eyes: PERRL, anicteric sclera Ears, Nose, Mouth, Throat: moist mucous membranes, hearing normal Cardiovascular: regular rate and rhythym, no murmur, rub, or gallop Respiratory: no respiratory distress, no rales or rhonchi Gastrointestinal: normoactive bowel sounds, distension Genitourinary: no bladder fullness Skin: warm, normal color ICD10 Worksheet Patient Problems: Problems Problem Status Onset Acute exacerbation of congestive heart failure Acute
[2017-03-18 01:43] LABS: HEMOGLOBIN A1C 5.8 % (4.0-6.0)
[2017-03-18 04:14] LABS: % IMMATURE GRANULYOCYTES 0.6 % (0.0-1.1); ABSOLUTE IMMATURE GRANULOCYTES 0.05 10^3/uL (0.00-0.10); ADD DIFF? NO; ADD MORPH? NO; ADD SCAN? NO; ATYPICAL LYMPHOCYTE FLAG 20 (0-99); FRAGMENT RBC FLAG 30 (0-99); HEMATOCRIT 41.4 % (40.0-51.0); HEMOGLOBIN 13.8 g/dL (13.7-17.5); LEFT SHIFT FLG 0 (0-99); LIPEMIA HEMOLYSIS FLAG 80 (0-99); MEAN CELL HEMOGLOBIN CONCENTR. 33.3 g/dL (32.4-36.7); MEAN CELL VOLUME 96.1 fL (81.5-99.8); MEAN PLATELET VOLUME 9.6 fL (8.7-11.7); PLATELET CLUMPS FLAG 0 (0-99); PLATELET COUNT 300 10^3/uL (150-400); RED BLOOD CELL COUNT 4.31 10^6/uL (4.40-6.38); RED CELL DISTRIBUTION WIDTH 13.9 % (11.5-15.2)
[2017-03-18 04:17] LABS: ANION GAP 9 mEq/L (8-16); CALCIUM 9.2 mg/dL (8.5-10.4); CARBON DIOXIDE 21 mEq/l (22-31); CHLORIDE 109 mEq/L (97-110); CREATININE 1.5 mg/dL (0.7-1.3); GLOMERULAR FILTRATION RATE 48; GLUCOSE 117 mg/dL (70-100); SODIUM 139 mEq/L (134-144)
[2017-03-18] MEDS: IPRATROPIUM/ALBUTEROL 3 ML DEYVIAL IH SCH ×2 (05:42→12:10)
[2017-03-18] MEDS ORDERED: DIAZEPAM 5 MG TAB PO ONE (06:00)
[2017-03-18] MEDS ORDERED: diphenhydrAMINE 25 MG CAP PO ONE (06:00)
[2017-03-18] MEDS ORDERED: ASPIRIN EC 325 MG TAB PO ONE (06:00)
[2017-03-18] MEDS: CARVEDILOL 6.25 MG TAB PO SCH (08:39)
[2017-03-18] MEDS ORDERED: LIDOCAINE 1% 30 ML SDV ONE (08:40)
[2017-03-18] MEDS ORDERED: MIDAZOLAM 2 MG/2 ML VIAL ONE (08:41)
[2017-03-18] MEDS ORDERED: fentaNYL 100 MCG/2 ML INJ ONE (08:41)
[2017-03-18] MEDS ORDERED: IOPAMIDOL (ISOVUE-370) 150 ML BTL IV ONE (08:41)
--- NOTE | 2017-03-18 10:47 | PDCARPN ---
Cardiology Progress Note Chief Complaint: No complaints at present, but the patient did have complaints of chest discomfort last night. Assessment/Plan: Assessment: 03-18-17 Mild chest pains were noted overnight, but absent this morning. No new changes on telemetry were noted. Patient reports a good night of sleep. 03-17-17 No events overnight, but when the patient was getting a breathing treatment, nausea was noted. On telemetry, there was a change to the morphology of the "T " wave - looking like the patient might have had a keil of atrial flutter (2:1) . Rapid resolution of the arrhythmia/T wave changes were noted (to the degree that a 12 lead ECG could not be performed). Today, the patient reports no complaints. Very good night of sleep last night. Ongoing issues with renal insufficiency (Cr at 1.5). Elevation to the potassium also noted. Pending left heart catheterization in the morning - contingent on renal function at this point. Mild nausea has been the only complaint voiced by the patient since admission. 03-16-17 Patient is a 56 y/o male with history of ILD/COPD (followed by [facility] in the past), CHF (uncertain etiology for this diagnosis with EF of 30-35% in the past), with further history (reportedly) of "uncontrolled" HTN, but no documentation of HLP or DM, who presented to [facility] with complaints of progressive dyspnea. Symptoms, according to the patient, have been noted for the last two weeks, but acute progression of symptoms was noted about 24 hours ago. Shortness of breath has been a chronic symptom. In the remote past, the diagnosis of "congestive heart failure" was rendered, and therapy on beta blockers, ACEi, and diuretics were started. About six months ago, the patient decided to take therapy into a more holistic approach, and the aforementioned therapies were all stopped in favor of non traditional therapies. The patient states that he had been doing and feeling well with this transition. No formal cardiology follow up had been performed for over one year. The patient denies chest pains and pressure. No lower extremity swelling had been noted. No dizziness or diaphoresis. Possible episodes of fevers were recently noted. Plan: (1) C this morning (2) Medical therapy to continue as at present (3) ASA should remain for life with CV risks (4) Further recommendations after diagnostic cath completed. Subjective: No voiced complaints Reviewed/Discussed With: family, hospitalist, multidisciplinary team Time Spent With Patient: 15 minutes Objective: Vital Signs (8 Hrs) Temp Pulse Resp BP Pulse Ox 03/18/17 07:37 36.4 C 97 20 166/105 H 98 03/18/17 05:45 84 16 95 03/18/17 04:00 36.4 C 85 18 146/98 H 97 Intake/Output (24 Hrs) 03/17/17 03/18/17 03/19/17 05:59 05:59 05:59 Intake Total 1815 1360 Output Total 1210 400 Balance 605 960 Intake: Oral (ml) 1410 1360 IV Intake (ml) 405 Output: Urine (ml) 1210 400 Toilet 900 Urinal 310 400 Other: Weight 75.3 kg 76.3 kg Intake Quantity Yes Yes Sufficient Number of Voids Toilet 3 Number of Stools Toilet 1 1 Urinal 1 Result Diagrams: 03/18/17 03:20 03/18/17 03:20 Cardiac Labs: Cardiac Lab Results (72 Hrs) 03/16/17 03/16/17 09:11 02:10 Troponin I < 0.012 0.014 Telemetry: normal sinus rhythm - Physical Exam Constitutional: WDWN, healthy appearing, no apparent distress Eyes: PERRL, EOMI Ears, Nose, Mouth, Throat: moist mucous membranes Cardiovascular: regular rate and rhythm, no murmurs, no rubs Peripheral Pulses: 2+: dorsalis-pedis (R), dorsalis-pedis (L) Respiratory: clear to auscultate bilat Gastrointestinal: normoactive bowel sounds Skin: no rashes, no edema Musculoskeletal: no muscular tenderness Neurologic: AAOx3, CN II-XII grossly intact Psychiatric: cooperative, interactive, following commands ICD10 Worksheet Patient Problems: Problems Problem Status Onset Acute exacerbation of congestive heart failure Acute
[2017-03-18] MEDS ORDERED: ONDANSETRON 4 MG/2 ML VIAL IVP PRN (11:13)
[2017-03-18] MEDS ORDERED: NITROGLYCERIN 0.4 MG BTL SL PRN (11:13)
[2017-03-18] MEDS ORDERED: ATROPINE SULFATE 1 MG/10 ML SYR IVP PRN (11:13)
[2017-03-18] MEDS ORDERED: OXYCODONE/APAP 5/325 TAB PO PRN (11:13)
[2017-03-18] MEDS ORDERED: HYDROCODONE/APAP 5/325 TAB PO PRN (11:13)
--- NOTE | 2017-03-18 11:24 | PDDXCAT ---
Diagnostic Cath Note - . Date: 03/18/17 Security Software Engineer: Clifford High-risk criteria on non-invasive testing: severe resting left ventricular dysfunction (LVEF<35%) - Procedure Access: right groin Procedure: left heart catheterization, coronary angiography, left ventriculogram - Materials Left Heart Cath size: 6F Left Heart Cath materials: standard multipack (JL4, JR4, pigtail) - Findings-Left Heart Catheterization LM: short, trifurcation into the LAD, LCX, and Ramus. No luminal irregularities were noted LAD: medium sized vessel. First diag was principal diag. Second diag was smallish. No luminal irregularities were noted. LCX: Medium sized vessel. Second OM was principal OM. First OM was smallish. No luminal irregularties were noted. LCX codominant with the RCA system. RCA: Medium sized vessel. Codominant with LCX system. No luminal irregularities. Ramus: Small vessel. No luminal irregularities were noted EDP: 30 mm Hg LVEF: Not assessed to minimize contrast Wall motion: Not assessed to minimize contrast Complications: none Estimated blood loss: <50ml Closure method: Angioseal Assessment: 56 y/o male with LBBB and "new" CHF. No critical CAD was noted on this study. Vessels are all medium sized to small without appreciable luminal irregularities noted. Plan: Aggressive HTN management is needed given this risk factor. ASA therapy should continue. Would ensure compliance with prescribed medical therapy - cessation of therapy likely contribute to further reduction in systolic function. Intervention: none Patient Problems: Problems Problem Status Onset Acute exacerbation of congestive heart failure Acute
[2017-03-18 12:10] VITALS: TEMP 98.7
[2017-03-18 12:20] VITALS: RESP 14; O2SAT 98
[2017-03-18] MEDS: ASPIRIN EC 81 MG TAB PO SCH (12:33)
[2017-03-18 14:19] VITALS: BP 136/79; PULSE 72
--- NOTE | 2017-03-18 15:21 | PDCONSULT ---
Branner Machine Tender Note: Review of the patient's echocardiogram (EF of 20%) and angiogram (no critical CAD was noted), cardiology recommends the patient have ICD. LBBB pattern allows for Biventricular pacing as well, which may assist with overall systolic function. I spoke with Dr. Namita Escalante ([facility] EP) and the patient will have an outpatient with EP for further discussion about implantation of BiVICD. I spoke with the patient, and he was in agreement with this appointment.
--- NOTE | 2017-03-19 06:41 | GDS ---
[f rep st] DISCHARGE SUMMARY DISCHARGE DIAGNOSES: 1. Acute systolic congestive heart failure with ejection fraction of 20% and global hypokinesis. 2. Chronic obstructive pulmonary disease. 3. Tobacco abuse. 4. Hypertensive urgency. 5. Acute kidney injury. CONSULTANTS: [facility]. HOSPITAL COURSE AND STAY BY PROBLEM: Acute on chronic systolic congestive heart failure: The patie kerwin was admitted to the hospital where he was diuresed. An echocardiogram was done on 03/16/2017, th at showed an ejection fraction of 20%. Please refer to report for full details. It was thought jose t his heart failure was precipitated by a hypertensive crisis. Since being in the hospital he was s tarted on Coreg 25 mg p.o. b.i.d., which he has tolerated. FAIZAN inhibitor was held in the setting of his acute kidney injury and mild hyperkalemia. On the day of discharge, the patient did undergo a cardiac cath that did not reveal any significant coronary disease to explain his cardiomyopathy. Prior to discharge I discussed the case with Dr. Guero ramirez, who plans to see the patient in followup in the next week to further address diuretic therapy and reinitiating FAIZAN inhibitor. PHYSICAL EXAMINATION: VITAL SIGNS: On the day of discharge, blood pressure 136/79, pulse 72, respi ratory rate 14, O2 saturation 98% on 1 L, temperature afebrile. GENERAL: No acute distress. HEART : S1, S2. LUNGS: Clear. ABDOMEN: Soft. EXTREMITIES: No edema. PERTINENT LABS AND STUDIES: Echocardiogram done 03/16/2017, refer to report. CT angio of the chest on 03/15/2017, refer to report. DISCHARGE MEDICATIONS: Please refer to discharge medication reconciliation in [facility] for details. Below is a preliminary list. New medications on hospital discharge: 1. Coreg 25 mg p.o. b.i.d. 2. FAIZAN inhibitor was not started due to his kidney injury and hyperkalemia. The patient plans to f ollow up with Cardiology in the next week to further discuss initiating FAIZAN inhibitor therapy as wel l as possible need for daily diuretic treatment. DISCHARGE INSTRUCTIONS: The patient will be discharged home where once again, he plans to follow up at [facility], where he will need to be closely followed to see if he can tolerate an FAIZAN inhibitor as well as diuretic. Should also discuss ICD placement given his reduced ejection fr action. Copy requested to: Dictionary PCP Not In /[id number]/MODL
== END 2017-03-18 16:10 | disposition home or self-care (01) | DRG 286 ==
LOC: F2W 03-16 00:13
PROVIDERS: ADMIT Internal Medicine; ATTEND Family Medicine
PROC: B2111ZZ Fluoroscopy of Multiple Coronary Arteries using Low Osmolar Contrast (ICD-10-PCS; principal; 2017-03-18)
PROC: B2151ZZ Fluoroscopy of Left Heart using Low Osmolar Contrast (ICD-10-PCS; principal; 2017-03-18)
PROC: 4A023N7 Measurement of Cardiac Sampling and Pressure, Left Heart, Percutaneous Approach (ICD-10-PCS; principal; 2017-03-18)
DX: I11.0 Hypertensive heart disease with heart failure (principal); I50.23 Acute on chronic systolic (congestive) heart failure; J18.9 Pneumonia, unspecified organism; J44.1 Chronic obstructive pulmonary disease with (acute) exacerbation; N17.9 Acute kidney failure, unspecified; I44.7 Left bundle-branch block, unspecified; E87.5 Hyperkalemia; I16.0 Hypertensive urgency; F17.210 Nicotine dependence, cigarettes, uncomplicated; Z91.128 Patient's intentional underdosing of medication regimen for other reason
CPT/HCPCS: 96374; C1760; J0456; J0696; J1644; J1650; J2250; J3010; Q9967

== ENCOUNTER 2018-10-06 05:27 | Inpatient (IN) | payer MEDICAID ==
[2018-10-06] MEDS ORDERED: methylPREDNISolone SOD SUCC 125 MG/2 ML VIAL IVP ONE (05:44)
[2018-10-06] MEDS ORDERED: IPRATROPIUM/ALBUTEROL 3 ML DEYVIAL IH ONE (05:44)
--- NOTE | 2018-10-06 05:48 | EDPHY ---
H & P Stated Complaint: SOB started around 0300 Time Seen by Provider: 10/06/18 05:37 HPI/ROS: HPI The patient presents with shortness of breath which awoke him from sleep at about 3:00 a.m. This morning. He says he feels as if he cannot catch his breath. He tried to use his albuterol inhaler, however this did not help him. The shortness of breath is associated with right-sided chest pain which is sharp and worse with deep breaths. His shortness of breath is worse when he tries to walk around. Over the last several weeks he reports cough productive of clear phlegm as well as nasal congestion. He says he has been taking all of his prescribed medications.. He does not have any lower extremity edema. REVIEW OF SYSTEMS 10 systems were reviewed and negative with the exception of the elements mentioned in the history of present illness. PMHx: Systolic CHF, hypertension, COPD; patient's primary care is Dr. Shepard, patient's cloth dyer is Dr. Vanegas Soc Hx: housed in [place] PHYSICAL General Appearance: Alert, no distress Eyes: Pupils equal and round no pallor or injection ENT, Mouth: Mucous membranes moist Respiratory: There are no retractions, he is slightly tachypneic, there are clear breath sounds in all lung murphy Cardiovascular: Regular rate and rhythm Gastrointestinal: Abdomen is soft and non-tender, no masses, bowel sounds normal Neurological: A&O, moves all extremities Skin: Warm and dry, no rashes Musculoskeletal: Neck is supple non tender Extremities: symmetrical, full range of motion , no lower extremity edema Psychiatric: Patient is oriented X 3, there is no agitation Source: Patient Exam Limitations: No limitations - Personal History Current Tetanus/Diphtheria Vaccine: Yes Current Tetanus Diphtheria and Acellular Pertussis (TDAP): Yes Tetanus Vaccine Date: 2015 - Medical/Surgical History Hx Asthma: No Hx Chronic Respiratory Disease: Yes Hx Diabetes: No Hx Cardiac Disease: Yes Hx Renal Disease: No Hx Cirrhosis: No Hx Alcoholism: No Hx HIV/AIDS: No Hx Splenectomy or Spleen Trauma: No Other PMH: COPD, HTN, CHF, - Social History Smoking Status: Former smoker Constitutional: Initial Vital Signs Temperature (C) 36.4 C 10/06/18 05:27 Heart Rate 113 H 10/06/18 05:27 Respiratory Rate 18 12/03/18 05:27 Blood Pressure 162/109 H 10/06/18 05:27 O2 Sat (%) 96 10/06/18 05:27 O2 Delivery Mode Room Air Allergies/Adverse Reactions: No Known Allergies Allergy (Verified 10/06/18 05:31) Home Medications: Medication Instructions Recorded Herbals/Supplements -Info Only 1 ea PO AD 03/16/17 Albuterol Sulfate [Proair Hfa] 1 - 2 puffs IH Q4-6PRN PRN 10/06/18 Carvedilol [Coreg (*)] 50 mg PO BIDMEAL 10/06/18 Furosemide [Lasix 40 MG (*)] 40 mg PO DAILY 10/06/18 Glycopyrrolate/Formoterol Fum 2 puffs IH BID 10/06/18 [Bevespi Aerosphere Inhaler] Isosorbide Dinit/Hydralazine 1 each PO TID 10/06/18 [Bidil Tablet] Lisinopril [Zestril 40 mg (*)] 40 mg PO DAILY 10/06/18 Simvastatin [Zocor] 20 mg PO HS 10/06/18 Spironolactone [Aldactone 25 MG 25 mg PO DAILY 10/06/18 (*)] Medical Decision Making - Diagnostics EKG Interpretation: EKG: Complete interpretation has been separately recorded in the [email or web address] archive. Summary impression: Left bundle branch block with sinus tachycardia Imaging Results: Imaging Impressions Chest/Thorax CTA 10/06/18 06:21 Impression: 1. Negative CT examination of the chest for acute pulmonary thromboembolic disease. 2. Right lower lobe consolidation, hemorrhage versus pneumonia. 3. Enlarged right hilar lymph nodes. 4. Left atrial enlargement and hypertrophy. The study was performed as an emergency on-call case and discussed by telephone with Dr. Jose Alejandro Elmore at 7:00 a.m. The final interpretation is concordant with the original communication. Chest x-ray two views demonstrates severe cardiomegaly, pulmonary edema more prominent on the right, interpreted by me, radiology interpretation is pending. Imaging: I viewed and interpreted images myself Differential Diagnosis: 58-year-old male with history of systolic CHF, COPD, hypertension presents from home with acute onset shortness of breath associated with sharp right-sided chest pain. He is tachycardic and slightly tachypneic, oxygen saturations are normal. Differential diagnosis include CHF with exacerbation, COPD with exacerbation, pneumonia, PE. In the emergency department, patient had basic laboratory testing. His D-dimer was elevated at 2.5. His BNP was about 10,000 up from 3000 on his last admission. Chest x-ray demonstrates severe cardiomegaly with likely pulmonary edema. As I have ordered a dose of Lasix for him because of this. I have ordered a CT scan of his chest to evaluate for PE given his chest pain and positive D-dimer. Either way, he will require admission to the hospital for CHF exacerbation. As I have consulted with Dr. Argueta who will admit the patient. I have discussed the diagnosis and treatment plan with the patient. - Data Points Laboratory Results: Laboratory Results 10/06/18 05:55 10/06/18 05:55 Medications Given: Albuterol (Proventil Neb) 3 ml IH Q2HRS PRN PRN Reason: Short of Breath/Dyspnea Stop: 04/04/19 06:54 Last Admin: 10/06/18 08:30 Dose: 3 ml Albuterol/Ipratropium (Duoneb) 3 ml IH Q6HRS JEFF Stop: 04/04/19 11:59 Last Admin: 10/06/18 16:12 Dose: 3 ml Carvedilol (Coreg) 50 mg PO BIDMEAL JEFF Stop: 04/04/19 17:59 Last Admin: 10/06/18 18:25 Dose: 50 mg Azithromycin 500 mg/ Sodium (Chloride) 255 mls @ 255 mls/hr IV DAILY JEFF PRN Reason: Protocol Stop: 11/05/18 11:59 Last Admin: 10/06/18 13:37 Dose: 255 mls Ceftriaxone Sodium/Dextrose (Rocephin 1 Gm (Premix)) 50 mls @ 100 mls/hr IV DAILY JEFF PRN Reason: Protocol Stop: 11/05/18 11:59 Last Admin: 10/06/18 12:57 Dose: 50 mls Discontinued Medications Albuterol/Ipratropium (Duoneb) 3 ml IH EDNOW ONE Stop: 10/06/18 05:45 Last Admin: 10/06/18 06:10 Dose: 3 ml Enoxaparin Sodium (Lovenox) 40 mg SC DAILY JEFF Stop: 04/04/19 08:59 Last Admin: 10/06/18 09:25 Dose: 40 mg Furosemide (Lasix Injection) 40 mg IVP EDNOW ONE Stop: 10/06/18 06:49 Last Admin: 10/06/18 07:07 Dose: 40 mg Lorazepam (Ativan Injection) 0.5 mg IVP ONCE ONE Stop: 10/06/18 07:05 Last Admin: 10/06/18 06:50 Dose: 0.5 mg Methylprednisolone Sodium Succinate (Solu-Medrol) 125 mg IVP EDNOW ONE Stop: 10/06/18 05:45 Last Admin: 10/06/18 06:10 Dose: 125 mg Morphine Sulfate (Morphine) 2 mg IVP Q1HR PRN PRN Reason: Pain, Severe Unable to Take PO Stop: 10/16/18 07:37 Last Admin: 10/06/18 07:44 Dose: 2 mg Point of Care Test Results: Chemistry 10/06/18 06:01 POC Troponin I 0.03 ng/mL ng/mL (0.00-0.08) Departure - Departure Disposition: [facility] Inpatient Acute Clinical Impression: Shortness of breath, Tachycardia Acute exacerbation of congestive heart failure Qualifiers: Heart failure type: systolic Qualified Code(s): I50.23 - Acute on chronic systolic (congestive) heart failure COPD (chronic obstructive pulmonary disease) Qualifiers: COPD type: unspecified COPD Qualified Code(s): J44.9 - Chronic obstructive pulmonary disease, unspecified Condition: Fair
[2018-10-06 06:05] LABS: PLATELET COUNT 223 10^3/uL (150-400)
[2018-10-06] MEDS ORDERED: methylPREDNISolone SOD SUCC 125 MG/2 ML VIAL ONE (06:07)
[2018-10-06] MEDS ORDERED: IOPAMIDOL (ISOVUE 370) 100 ML BTL IV ONE (06:34)
[2018-10-06] MEDS ORDERED: LORazepam 2 MG/ML INJ ONE (06:47)
[2018-10-06] MEDS ORDERED: FUROSEMIDE 40 MG/4 ML VIAL IVP ONE (06:48)
[2018-10-06] MEDS ORDERED: ALBUTEROL 3 ML DEYVIAL IH PRN (06:55)
[2018-10-06] MEDS ORDERED: ONDANSETRON 4 MG/2 ML VIAL IVP PRN (06:55)
[2018-10-06] MEDS ORDERED: ONDANSETRON DISINTEGRATING 4 MG TAB PO PRN (06:55)
[2018-10-06] MEDS ORDERED: ACETAMINOPHEN 325 MG TAB PO PRN (06:55)
[2018-10-06] MEDS ORDERED: LORazepam 2 MG/ML INJ IVP ONE ×2 (07:04→08:30)
--- NOTE | 2018-10-06 07:36 | PDGENHP ---
History and Physical - Chief Complaint Chest pain - History of Present Illness 58 yo M w/ sCHF (NICM), COPD, and CKD presents with pleuritic chest pain. The chest pain tells me he has been mildly short of breath and coughing for 2 weeks. Around 3 AM this morning he developed R sided chest pain worsened by deep inspiration. The pain is also worse when lying flat. During my evaluation he is leaning forward and to the right in an effort to protect his R chest wall from pain. He has been compliant with most of his meds for heart failure aside from BiDil. He denies weight gain and says his weight has been steady around 160. A nebulizer treatment in the ED was nt particularly helpful. Of note, he last had a TTE in August that demonstrated an EF of 32%, this has been relatively stable over the last year. He has been in discussions with Dr. Rajan Lopez about a possibleBiV pacemaker. Case discussed with ED physician Dr. Griffin; records reviewed and summarized above. History Information - Allergies/Home Medication List Allergies/Adverse Reactions: No Known Allergies Allergy (Verified 10/06/18 05:31) Home Medications: Herbals/Supplements -Info Only 1 ea PO AD 03/16/17 [Last Taken Unknown] I have personally reviewed and updated: family history, medical history - Past Medical History CHF, COPD, hypertension Additional medical history: CKD, Stage III - Surgical History Reports: no pertinent surgical hx - Family History Additional family history: lupus. 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 Review of Systems Review of Systems: ROS: 10pt was reviewed & negative except for what was stated in HPI & below Physical Exam Physical Exam: Temp Pulse Resp BP Pulse Ox 36.4 C 99 18 153/95 H 97 10/06/18 05:27 10/06/18 07:02 10/06/18 07:02 10/06/18 07:02 10/06/18 07:02 O2 (L/minute) 2 Constitutional: appears nourished, uncomfortable Eyes: PERRL, EOMI Ears, Nose, Mouth, Throat: moist mucous membranes, no oral mucosal ulcers Cardiovascular: regular rate and rhythym, systolic murmur, No JVD, No edema Respiratory: reduced air movement, other (Very shallow breathing due R pleuritic pain) Gastrointestinal: normoactive bowel sounds, soft, non-tender abdomen Skin: warm, normal color Musculoskeletal: full muscle strength, no muscle tenderness Neurologic: AAOx3, CN II-XII Intact Psychiatric: interacting appropriately, not anxious Lab Data & Imaging Review 10/06/18 05:55 10/06/18 05:55 WBC 10.99 10^3/uL (3.80-9.50) H 10/06/18 05:55 RBC 4.62 10^6/uL (4.40-6.38) 10/06/18 05:55 Hgb 15.2 g/dL (13.7-17.5) 10/06/18 05:55 Hct 44.6 % (40.0-51.0) 10/06/18 05:55 MCV 96.5 fL (81.5-99.8) 10/06/18 05:55 MCH 32.9 pg (27.9-34.1) 10/06/18 05:55 MCHC 34.1 g/dL (32.4-36.7) 10/06/18 05:55 RDW 13.5 % (11.5-15.2) 10/06/18 05:55 Plt Count 223 10^3/uL (150-400) 10/06/18 05:55 MPV 8.6 fL (8.7-11.7) L 10/06/18 05:55 Neut % (Auto) 77.7 % (39.3-74.2) H 10/06/18 05:55 Lymph % (Auto) 8.6 % (15.0-45.0) L 10/06/18 05:55 [place] % (Auto) 13.0 % (4.5-13.0) 10/06/18 05:55 Eos % (Auto) 0.0 % (0.6-7.6) L 10/06/18 05:55 Baso % (Auto) 0.3 % (0.3-1.7) 10/06/18 05:55 Nucleat RBC Rel Count 0.0 % (0.0-0.2) 10/06/18 05:55 Absolute Neuts (auto) 8.54 10^3/uL (1.70-6.50) H 10/06/18 05:55 Absolute Lymphs (auto) 0.95 10^3/uL (1.00-3.00) L 10/06/18 05:55 Absolute Monos (auto) 1.43 10^3/uL (0.30-0.80) H 10/06/18 05:55 Absolute Eos (auto) 0.00 10^3/uL (0.03-0.40) L 10/06/18 05:55 Absolute Basos (auto) 0.03 10^3/uL (0.02-0.10) 10/06/18 05:55 Absolute Nucleated RBC 0.00 10^3/uL (0-0.01) 10/06/18 05:55 Immature Gran % 0.4 % (0.0-1.1) 10/06/18 05:55 Immature Gran # 0.04 10^3/uL (0.00-0.10) 10/06/18 05:55 D-Dimer 2.58 ug/mLFEU (0.00-0.50) H 10/06/18 05:55 Sodium 135 mEq/L (135-145) 10/06/18 05:55 Potassium 5.0 mEq/L (3.3-5.0) 10/06/18 05:55 Chloride 103 mEq/L (97-110) 10/06/18 05:55 Carbon Dioxide 20 mEq/l (22-31) L 10/06/18 05:55 Anion Gap 12 mEq/L (6-14) 10/06/18 05:55 BUN 31 mg/dL (7-23) H 10/06/18 05:55 Creatinine 1.4 mg/dL (0.7-1.3) H 10/06/18 05:55 Estimated GFR 52 10/06/18 05:55 Glucose 145 mg/dL (70-100) H 10/06/18 05:55 Calcium 9.2 mg/dL (8.5-10.4) 10/06/18 05:55 POC Troponin I 0.03 ng/mL (0.00-0.08) 10/06/18 06:01 NT-Pro-B Natriuret Pep 71647 pg/mL (0-125) H 10/06/18 05:55 Visualized and Interpreted EKG results: Yes EKG Interpretation: Positive for: left bundle branch block, other (Sinus tach) Assessment & Plan Assessment: 58 yo M w/ hx of sCHF(NICM), COPD, HTN, and CKD presents with R pleuritic chest pain. Plan: 1. R pleuritic chest pain - Unclear etiology; considerations include PE vs. CHF exacerbation vs. viral etiology/COPD. He has no personal or family hx of blood clots. He has been compliant with CHF meds (aside from BiDil) and denies weight gain. Clinically he appears euvolemic but does have an elevated BNP. Symptoms were preceded by 2 weeks of cough and SOB so viral etiology is also possible. He was not greatly helped by Duoneb in the ED. Troponin negative, ECG w/ known LBBB. - CTPE pending for further evaluation - Trend cardiac enzymes, next at 1200 - Lasix 40 mg IV x1 - Will check respiratory PCR - S/p methylprednisolone x1 and Duoneb in the ED 2. NICM - Last EF 32% on 08/21 TTE; he is on a great regimen with carvedilol 25 mg BID, lisinopril 40 mg qD, furosemide 40 mg qD, and spironolactone 25 mg qD. He was recently prescribes hydral/ISDN but has not been taking this. BNP 10,000 on admission but clinically appears euvolemic. - Lasix 40 mg IV x1, consider repeat dosing if symptomatically helpful - Monitor on telemetry, known LBBB at baseline - Daily weights monitor I/Os, cardiac diet 3. COPD - No clear exacerbation currently; he is in mild respiratory distress but this seems to be from splinting due to R pleuritic chest pain. He is currently saturating 98% on 2 L via NC. - Will schedule Duonebs QID for now in case this is contributing to pain - Respiratory PCR as above 4. CKD, Stage III - Near creatinine baseline. - Monitor BMP - Avoid nephrotoxic agents, renally dose medications 5. HTN - Treated with carvedilol 25 mg BID, lisinopril 40 mg qD, furosemide 40 mg qD, and spironolactone 25 mg qD as outpatient. - Continue home regimen pending reconciliation Diet - Cardiac Code - Full Ppx - LMWH Dispo - Admit under observation status
[2018-10-06] MEDS ORDERED: ENOXAPARIN 40 MG/0.4 ML SYR SC SCH (09:00)
[2018-10-06] MEDS: IPRATROPIUM/ALBUTEROL 3 ML DEYVIAL IH SCH ×3 (12:01→23:31)
[2018-10-06] MEDS: AZITHROMYCIN IV 500 MG in NS 250 ML IV SCH (13:37)
--- NOTE | 2018-10-06 16:46 | HOSPPROG ---
Hospitalist Progress Note Assessment/Plan: * Pulmonary hemorrhage - coughing up mehreen blood -consulted pulmonary Dr. Nesbitt -if acute decompensates tonight - recommend Bronchial artery embolization in IR -may be due to pneumonia/infection * RLL pneumonia -IV ceftriaxone, IV azithro * Chronic systolic CHF - EF 32% - non-ischemic cardiomyopathy -well compensated on appropriate regimen of ACEI, beta-[place], etc * CKD -better than baseline creatinine 1.5 * COPD -scheduled nebs CC time - 40 minutes Subjective: Coughing up mehreen blood Objective: Vital Signs Temp Pulse Resp BP Pulse Ox 36.6 C 97 17 139/84 H 96 10/06/18 11:16 10/06/18 16:13 10/06/18 16:13 10/06/18 11:16 10/06/18 16:13 Microbiology 10/06/18 07:45 Respiratory Panel (PCR) - Final Nasal, Sinus - Eswab No Organism Detected By Pcr 10/05/18 10/06/18 10/07/18 05:59 05:59 05:59 Intake Total 750 Output Total 450 Balance 300 CTA chest - PNA vs. Pulmonary Hemorrhage d/w Dr. Nesbitt - Physical Exam Constitutional: no apparent distress, appears nourished, not in pain Cardiovascular: regular rate and rhythym, no murmur, rub, or gallop Respiratory: no respiratory distress, no rales or rhonchi, clear to auscultation Gastrointestinal: normoactive bowel sounds, soft, non-tender abdomen, no palpable masses Skin: no rashes or abrasions, no fluctuance, no induration Neurologic: AAOx3, sensation intact bilaterally Psychiatric: interacting appropriately, not anxious, not encephalopathic, thought process linear ICD10 Worksheet Patient Problems: Problems Problem Status Onset Acute exacerbation of congestive heart failure Acute
[2018-10-06] MEDS: CARVEDILOL 25 MG TAB PO SCH (18:25)
[2018-10-06] MEDS ORDERED: HYDRALAZINE PO SCH (22:00)
[2018-10-06] MEDS ORDERED: ISOSORBIDE DINIT PO SCH (22:00)
[2018-10-06] MEDS: GLYCOPYRROLATE IH SCH (23:23)
[2018-10-06] MEDS: FORMOTEROL FUM IH SCH (23:23)
[2018-10-06] MEDS: [UNRECOGNIZED DRUG - OTHER] IH SCH (23:23)
[2018-10-07] MEDS: IPRATROPIUM/ALBUTEROL 3 ML DEYVIAL IH SCH ×3 (05:40→17:13)
[2018-10-07] MEDS: hydrALAZINE 25 MG TAB PO SCH ×3 (06:45→16:41)
[2018-10-07] MEDS: ISOSORBIDE DINITRATE 20 MG TAB PO SCH ×3 (06:47→16:41)
[2018-10-07 07:54] LABS: PLATELET COUNT 207 10^3/uL (150-400)
[2018-10-07] MEDS: ATORVASTATIN CALCIUM 10 MG TAB PO SCH (09:02)
[2018-10-07] MEDS: AZITHROMYCIN IV 500 MG in NS 250 ML IV SCH (09:02)
[2018-10-07] MEDS: CARVEDILOL 25 MG TAB PO SCH ×2 (09:02→21:17)
[2018-10-07] MEDS: LISINOPRIL 40 MG TAB PO SCH (09:03)
[2018-10-07] MEDS: FUROSEMIDE 40 MG TAB PO SCH (09:03)
[2018-10-07] MEDS: SPIRONOLACTONE 25 MG TAB PO SCH (09:03)
--- NOTE | 2018-10-07 09:37 | HOSPPROG ---
Hospitalist Progress Note Assessment/Plan: 58yo M with NICM, COPD, CKD here with pleuritic chest pain found to have pneumonia and hemoptysis. 1. Hemoptysis: Likely inflammation from infection. Improving. - Pulm consulted, Dr Nesbitt seeing today - Plan to repeat CT in 6 weeks and f/u in pulm clinic - Repeat H/H this PM 2. RLL pneumonia: CAP - IV ceftriaxone, azithro 3. Chronic systolic CHF: EF 32%, appears euvolemic despite elevated BNP - Continue home regimen of ACEi, BB, daisha 4. CKD: Cr below baseline of 1.5 5. COPD: Not exacerbated - Nebs, home meds 6. Pleuritic chest pain: Related to pneumonia VTE ppx: SCDs Code: full Dispo: Remain inpatient, likely discharge tomorrow if stable. Subjective: Breathing better. Some blood in sputum last night, none this AM. No leg swelling. Objective: Vital Signs Temp Pulse Resp BP Pulse Ox 36.4 C 76 20 117/76 94 10/07/18 07:46 10/07/18 07:46 10/07/18 07:46 10/07/18 07:46 10/07/18 07:46 Microbiology 10/06/18 11:50 - Final Sputum, Expectorated 10/06/18 07:45 Respiratory Panel (PCR) - Final Nasal, Sinus - Eswab No Organism Detected By Pcr Laboratory Results 10/07/18 07:14 10/07/18 07:14 10/06/18 10/07/18 10/08/18 05:59 05:59 05:59 Intake Total 1200 Output Total 1375 Balance -175 - Physical Exam Constitutional: no apparent distress, appears nourished, not in pain Eyes: PERRL, anicteric sclera, EOMI Ears, Nose, Mouth, Throat: moist mucous membranes, hearing normal, ears appear normal, no oral mucosal ulcers Cardiovascular: regular rate and rhythym, no murmur, rub, or gallop, JVD (1-2cm above clavicle at 45 degrees), No edema Respiratory: no respiratory distress, reduced air movement (right base), No expiratory wheeze, No rhonchi Gastrointestinal: normoactive bowel sounds, soft, non-tender abdomen, no palpable masses Genitourinary: no bladder fullness, no bladder tenderness, no renal bruits Skin: no rashes or abrasions, no fluctuance, no induration Musculoskeletal: full muscle strength, no muscle tenderness, normal joint ROM Neurologic: AAOx3, sensation intact bilaterally Psychiatric: interacting appropriately, not anxious, not encephalopathic, thought process linear ICD10 Worksheet Patient Problems: Problems Problem Status Onset Acute exacerbation of congestive heart failure Acute COPD (chronic obstructive pulmonary disease) Acute Shortness of breath Acute Tachycardia Acute
--- NOTE | 2018-10-07 10:06 | PDCONSULT ---
Fire Alarm Dispatcher Note: ASSESMENT 58 yo male with 40-50 pack year history, moderate COPD admitted with acute hypoxemic respiratory failure, hemoptysis and pneumonia. Non fixes etiology such as primary pulmonary hemorrhage and eosinophilic pneumonia from marijuana use are possible but less likely. No clear signs or symptoms for autoimmune mediated pulmonary to vasculitis # hemoptysis # pneumonia # hilar mediastinal lymphadenopathy # COPD, moderate # acute hypoxemic respiratory failure PLAN # complete abx course for pna # repeat CT chest WITH CONTRAST in 6-8 weeks r/o maligancy and confirm resolution of LAD given RF for malignancy # no role for bronchoscopy at this juncture # follow-up with Dr. Nesbitt in Pulmonary Clinic after CT chest is performed Chief complaint shortness of breath and chest pain I was asked by Dr. Karen Orozco of Hospital Medicine to evaluate this patient for hemoptysis and pneumonia HPI Edd is a very pleasant 58-year-old male with 40 50 pack year history who quit 6 months ago as well as nonischemic cardiomyopathy and COPD who presented with fevers chills coughing and pleuritic chest pain the last 1-2 weeks. 1-2 weeks prior he helped his"lady friend" use her vaporized marijuana machine and inadvertently took a large inhalation and started coughing has felt ill since. f Pain is mildly relieved with rest and increased with exertion. Shortness of breath is largely unchanged regardless of position or activity He denied hemoptysis prior to admission but subsequently developed this while admitted. He follows with Cardiology for his cardiomyopathy and reports compliance with his medications. He denies headaches vision changes anginal like chest pain, leg swelling, abdominal pain, hot or cold intolerance, joint pains skin rashes. Review of systems A comprehensive 10 point review of systems was obtained is negative except as per HPI Allergies no known drug allergies Medications I reviewed patient's medication per medication reconciliation Simvastatin 20 mg p. O. At bedtime, lisinopril 40 mg p.o. Daily spironolactone 25 mg p.o. Daily Lasix 40 mg p. O. Daily, Isordil/high dropout 1 tab p.o. Twice daily, do that this be a row severe 2 puffs inhaled twice daily, albuterol p.r.n., Coreg 50 mg p.o. 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 None currently. Denies methamphetamines Family history No family history of pneumonia Temperature 36.6 degrees, heart rate 70, blood pressure 117/76 map 89, respiratory rate 18 95% 1 L nasal cannula GEN: NAD, up in bed, interactive NEURO: A&Ox3, CN 2-12 GI HEENT: PERRL, EOMI, MMM, OP clear NECK: supple, trachea midline CHEST normal shape, no pes excavatum CVS: rrr no m/r/g PULM: Mild rales in right lung base otherwise clear, no distress, no egophony ABD: soft, NT, ND, NABS EXT: no swelling, no cyanosis, full ROM SKIN: warm, dry, intact, no rash PSYCH CAM negative, appropriate affect DATA I have personally reviewed the laboratory data and radiographic images. LABS Reviewed. Pertinent for leukocytosis of 17, hemoglobin 13.5 IMAGING The personally reviewed the radiographic images as well as the formal radiologist reads. 10/06/2018 CT chest with contrast negative for pulmonary embolism, right lower lobe alveolar opacification with hilar mediastinal lymphadenopathy. CARDIAC STUDIES Reviewed. Prior EF 32%
--- NOTE | 2018-10-07 10:47 | PDMN ---
Medical Necessity Medical necessity: [facility] M282 Pneumonia, CAP, A-2 days, 58 yo presents w/ pleuritic CP, initially OBS for workup but change to IP same day as pt developed pulmonary hemorrhage, coughing up mehreen blood, r/t RLL pneumonia. Pt tachypneac, worsening leukocytosis (10 on admit, increased to 17 overnight), Pulm consulted, IV antibx and nebs started and ongoing, monitor H/H and WBC, BC pending. Hx sCHF (NICM), COPD, HTN, and CKD. Change to IP status 10/06/18@ 1654 per MD order
[2018-10-07] MEDS: GLYCOPYRROLATE IH SCH ×2 (14:21→21:20)
[2018-10-07] MEDS: FORMOTEROL FUM IH SCH ×2 (14:21→21:20)
[2018-10-07] MEDS: [UNRECOGNIZED DRUG - OTHER] IH SCH ×2 (14:21→21:20)
--- NOTE | 2018-10-07 15:07 | ASMTCMCOM ---
CM Note CM Note Notes: Spoke with pt in the room during rounds. Pt lives independently with roommates in [place]. Pt admitted for CHF exacerbation for diuresis. Pt has medicaid and Chelsea of [facility] was notified of pt's admission. Pt likely to discharge tomorrow independently. No therapies ordered. CM to follow. D/C Plan: Independent Date Signed: 10/07/2018 03:06 PM Electronically Signed By:Anahi Swann
[2018-10-08] MEDS: IPRATROPIUM/ALBUTEROL 3 ML DEYVIAL IH SCH ×3 (00:16→11:42)
[2018-10-08 08:30] VITALS: BP 141/86
[2018-10-08] MEDS: CARVEDILOL 25 MG TAB PO SCH (08:30)
[2018-10-08] MEDS: FUROSEMIDE 40 MG TAB PO SCH (08:31)
[2018-10-08] MEDS: SPIRONOLACTONE 25 MG TAB PO SCH (08:31)
[2018-10-08] MEDS: ATORVASTATIN CALCIUM 10 MG TAB PO SCH (08:31)
[2018-10-08] MEDS: LISINOPRIL 40 MG TAB PO SCH (08:31)
[2018-10-08] MEDS: AZITHROMYCIN IV 500 MG in NS 250 ML IV SCH (08:32)
[2018-10-08] MEDS ORDERED: TIOTROPIUM INHALER 18 MCG/DOSE 5 DOSE/MDI IH SCH (09:00)
--- NOTE | 2018-10-08 09:47 | PDDCSUM ---
Discharge Summary Discharge Summary: Date of Admission: 10/06/2018 Date of Discharge: 10/08/2018 Consultants: pulmonology (Jose Nesbitt) Studies: 1. CTA chest: negative for PE, new right lower lobe infiltrate (hemorrhage vs pneumonia), right hilar adenopathy Discharge Diagnoses: 1. Hemoptysis 2. Right lower lobe community-acquired pneumonia 3. Right hilar lymphadenopathy 4. Acute hypoxemic respiratory insufficiency, resolved 5. Chronic systolic CHF (NICM, LVEF 32%), compensated 6. CKD, stable 7. COPD Brief Hospital Course: 58yo M with NICM, COPD, CKD here with pleuritic chest pain found to have pneumonia and small volume hemoptysis. Treated for CAP and responded nicely. To complete course of cefdinir and azithromycin. Pulmonary was consulted for his hemoptysis but this improved and no bronchoscopy was necessary at this time. Plan to repeat chest CT in 6-8 weeks and follow up with Dr Nesbitt in pulmonary clinic. Of note, the patient did have quite a bit of confusion over his medication regimen and what he was actually taking. RT met with patient to ensure proper inhaler usage. I also refilled several of his heart failure medications as outlined below. I did not continue his bidil as he wasn't taking it and he became quite hypotensive after initiating in the hospital. Medications: Please refer to EMR for complete list. Prescriptions for the following were sent to his pharmacy: 1. Cefdinir 300mg BID #8 2. Azithromycin 500mg QD #4 3. Lasix 40mg QD #30 4. Carvedilol 50mg BID #60 5. Lisinopril 40mg QD #30 6. Spironolactone 25mg QD #30 7. Spiriva inhaler QD #1 Follow Up Plan: 1. Complete antibiotics, follow up with PCP In 1-2 weeks 2. Repeat chest CT WITH CONTRAST in 6-8 weeks to eval RLL infiltrate and right hilar lymph nodes 3. See Dr Jose Nesbitt in pulmonary clinic AFTER chest CT 4. Appointment with Dr Vanegas (cardiology clinic) on 11/05/2018 5. Recommend ongoing education regarding appropriate medication use 6. He is being set up again with Cardiac Rehab Physical Exam: Vitals reviewed, afebrile and normotensive. Alert and oriented, RRR without m/r/g, lungs with improved but diminished breath sounds at right base, abdomen soft, no leg edema or JVD.
--- NOTE | 2018-10-08 10:06 | ASMTLACE ---
LACE Length of stay for Answers: 1 day current admission Acuity / Level of Answers: Yes Care: Did the patient have an inpatient admission? Comorbidities - select Answers: Chronic pulmonary disease all that apply Congestive heart failure Moderate or severe liver or renal disease Other Notes: HTN # of Emergency department Answers: 1-2 visits in the last 6 months Score: 14 Date Signed: 10/08/2018 10:06 AM Electronically Signed By:Roxanna Frankel RN
--- NOTE | 2018-10-08 10:22 | ASDISCHSUM ---
Discharge Information Plan Status:Home with No Needs Medically Cleared to Leave:10/07/2018 Discharge Date:10/07/2018 CM D/C Disposition:Home, Routine, Self-Care ADT D/C Disposition:Home, Routine, Self-Care Projected Discharge Date:10/07/2018 Transportation at D/C: Discharge Delay Reason: Follow-Up Date:10/07/2018 Discharge Slot: Final Diagnosis: Placement Information Patient Contact Information Contact Name:NUVIA Relationship:Mother Address: Work Phone: City: [facility] Phone: State/Zip Code: Email: Financial Information Financial Class:Medicaid Primary Plan Desc:MEDICAID [facility] [place] Primary Plan Number:[id number] Secondary Plan Desc: Secondary Plan Number: Assessment Information LACE LACE Length of stay for Answers: 1 day current admission Acuity / Level of Answers: Yes Care: Did the patient have an inpatient admission? Comorbidities - select Answers: Chronic pulmonary disease all that apply Congestive heart failure Moderate or severe liver or renal disease Other Notes: HTN # of Emergency department Answers: 1-2 visits in the last 6 months Score: 14 Date Signed: 10/08/2018 10:06 AM Electronically Signed By:Roxanna Frankel RN [facility] CM Progress Note CM Note CM Note Notes: Spoke with pt in the room during rounds. Pt lives independently with roommates in [place]. Pt admitted for CHF exacerbation for diuresis. Pt has medicaid and Chelsea of [facility] was notified of pt's admission. Pt likely to discharge tomorrow independently. No therapies ordered. CM to follow. D/C Plan: Independent Date Signed: 10/07/2018 03:06 PM Electronically Signed By:Anahi Haselwood Case Management Discharge Plan Note Case Management Discharge Discharge Order Complete? Answers: Yes Discharge Comments Notes: 10/08/2018 Case Management Note Pt discharged independent with follow up as directed. No case management needs identified. Date Signed: 10/08/2018 10:21 AM Electronically Signed By:Roxanna Frankel RN Intervention Information
[2018-10-08] MEDS ORDERED: AZITHROMYCIN 250 MG TAB PO ONE (10:27)
--- NOTE | 2018-10-08 12:45 | PDINTPN ---
Support Architect Progress Note Assessment/Plan: ASSESMENT 58 yo male with 40-50 pack year history, moderate COPD admitted with acute hypoxemic respiratory failure, hemoptysis and pneumonia. Noninfectious etiologies such as primary pulmonary hemorrhage and eosinophilic pneumonia from marijuana use are possible but less likely. No clear signs or symptoms for autoimmune mediated pulmonary to vasculitis. Clinically improved today # hemoptysis resolved today # pneumonia # hilar mediastinal lymphadenopathy # COPD, moderate # acute hypoxemic respiratory failure, resolved today # systolic heart failure, no e/o decompensation on exam PLAN # complete abx course for pna # repeat CT chest WITH CONTRAST in 6-8 weeks r/o malignancy and confirm resolution of LAD given RF for malignancy # no role for bronchoscopy at this juncture # okay to discharge from a pulmonary perspective # follow-up with Dr. Nesbitt in Pulmonary Clinic after CT chest is performed 10/08/18 12:44 Subjective: Patient weaned off oxygen overnight. Continues to feel better. Still with mildly productive cough. Leukocytosis resolving. No new fevers chills nausea vomiting diarrhea headaches leg swelling Objective: Vital Signs Temp Pulse Resp BP Pulse Ox 36.4 C 77 14 141/86 H 95 10/08/18 08:00 10/08/18 09:51 10/08/18 09:51 10/08/18 08:00 10/08/18 09:51 Laboratory Results 10/08/18 05:55 10/08/18 03:25 10/07/18 10/08/18 10/09/18 05:59 05:59 05:59 Intake Total 450 1420 Output Total 925 650 Balance -475 770 Physical Exam - Physical Exam General Appearance: alert, no apparent distress EENT: PERRL/EOMI, normal ENT inspection Neck: non-tender, full range of motion Respiratory: chest non-tender, lungs clear Cardiac/Chest: normal peripheral pulses, regular rate, rhythm Abdomen: non-tender, soft Skin: normal color, warm/dry, No cyanosis Extremities: normal range of motion, non-tender, No pedal edema Neuro/Psych: no motor/sensory deficits, alert, normal mood/affect, oriented x 3 ICD10 Worksheet Patient Problems: Problems Problem Status Onset Acute exacerbation of congestive heart failure Acute COPD (chronic obstructive pulmonary disease) Acute Shortness of breath Acute Tachycardia Acute
== END 2018-10-08 11:57 | disposition home or self-care (01) | DRG 139 ==
LOC: F2W 08:00 → OBSVTOIN 16:54
PROVIDERS: ADMIT Student in an Organized Health Care Education/Training Program; ATTEND Student in an Organized Health Care Education/Training Program
DX: J18.8 Other pneumonia, unspecified organism (principal); I13.0 Hypertensive heart and chronic kidney disease with heart failure and stage 1 through stage 4 chronic kidney disease, or unspecified chronic kidney disease; I50.22 Chronic systolic (congestive) heart failure; N18.3 Chronic kidney disease, stage 3 (moderate); R04.2 Hemoptysis; R06.89 Other abnormalities of breathing; J44.9 Chronic obstructive pulmonary disease, unspecified; Z87.891 Personal history of nicotine dependence
CPT/HCPCS: 84484-PO; 96374; J0456; J0696; J1650; J1940; J2060; J2270; J2930; J7613; Q9967

== ENCOUNTER 2018-12-22 16:16 | Inpatient (IN) | payer MEDICAID ==
--- NOTE | 2018-12-22 16:40 | EDPHY ---
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 He has an associated cough and rhinorrhea. Symptoms have not improved despite using both of his home inhalers. No fever, abdominal pain, chest pain. He did not receive a flu vaccination this season. REVIEW OF SYSTEMS: A ten system review of systems was performed and is negative with the exception of the items mentioned in the HPI. Past medical history: 1. CHF 2. COPD 3. CKD, stage III 4. Hypertension 5. 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 Former smoker. 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 Prior medical records reviewed including admission 10/06/18 for chest pain. General Appearance: Alert. Vital signs reviewed. Thin. Eyes: Pupils equal and round, no conjunctival injection, no discharge. Anicteric. ENT, Mouth: Mucous membranes are moist, no oropharyngeal erythema or edema. Neck: No lymphadenopathy, supple. No JVD. Respiratory: Distant breath sounds throughout, diminished breath sounds in right lower lobe. No wheezes, rales, or rhonchi. Cardiovascular: Tachycardic; no murmur, rub, or gallop. Gastrointestinal: Abdomen is soft and nontender, no masses or organomegaly. Skin: Warm and dry, no rashes on exposed skin, normal color. Back: Nontender to palpation over the thoracolumbar spine. No CVAT. Extremities: Trace lower extremity edema, no calf tenderness or swelling. Neurological: Alert and oriented. Moving all four extremities easily and equally. Psychiatric: Normal affect. - Personal History Tetanus Vaccine Date: 2015 - Medical/Surgical History Hx Asthma: No Hx Chronic Respiratory Disease: Yes Hx Diabetes: No Hx Cardiac Disease: Yes Hx Renal Disease: No Hx Cirrhosis: No Hx Alcoholism: No Hx HIV/AIDS: No Hx Splenectomy or Spleen Trauma: No Other PMH: COPD, HTN, CHF, - Social History Smoking Status: Former smoker Constitutional: Initial Vital Signs Temperature (C) 36.4 C 12/22/18 16:21 Heart Rate 100 02/18/19 16:21 Respiratory Rate 16 12/22/18 16:21 Blood Pressure 160/110 H 12/22/18 16:21 O2 Sat (%) 99 12/22/18 16:21 O2 Delivery Mode Nasal Cannula O2 (L/minute) 2 Allergies/Adverse Reactions: No Known Allergies Allergy (Verified 12/22/18 16:21) Home Medications: Medication Instructions Recorded Albuterol Sulfate [Proair Hfa] 1 - 2 puffs IH Q4-6PRN PRN 10/06/18 Simvastatin [Zocor] 20 mg PO HS 10/06/18 Carvedilol [Coreg (*)] 50 mg PO BIDMEAL #60 tab 10/08/18 Furosemide [Lasix 40 MG (*)] 40 mg PO DAILY #30 tab 10/08/18 Lisinopril [Zestril 40 mg (*)] 40 mg PO DAILY #30 tab 10/08/18 Spironolactone [Aldactone 25 MG 25 mg PO DAILY #30 tab 10/08/18 (*)] Tiotropium Inhaler [Spiriva 18 mcg IH DAILY #1 mdi 10/08/18 Handihaler] Medical Decision Making - Diagnostics Imaging Results: Imaging Impressions Chest X-Ray 12/22/18 16:51 Impression: Cardiomegaly, which has increased in size. Probable component of congestive heart failure, with pulmonary vascular congestion and mild pulmonary edema. Imaging: I viewed and interpreted images myself ED Course/Re-evaluation: This is a 58 y/o male with a history of CHF, COPD, CKD, and hypertension who presents with a one-day history of worsening dyspnea and bilateral leg swelling. He has distant breath sounds throughout and diminished lung sounds on the right lower side. He has bilateral leg edema. Plan for IV, labs, EKG, chest x-ray. Duo neb ordered. The 12 lead EKG was interpreted by myself. LBBB similar to prior EKG 10/06/18. See hard copy and/or "tracemaster" electronic copy for interpretation. Chest x-ray: Cardiomegaly and pulmonary edema. Patient is not hypoxemic on room air. He is tachypneic and slightly tachycardic around 108. Spoke with hospitalist service. Dr. Stoner accepts admission for CHF. 1940: [place] [address]. Flu swab is negative. All labs reviewed. No evidence of pneumonia. Influenza negative. I do not think that this is an infectious process. History, PE, labs, and CXR all support dx of CHF. Lasix diuresis started in ED. Differential Diagnosis: Shortness of breath including but not limited to pulmonary infectious process, COPD, asthma, pulmonary embolus and congestive heart failure. - Data Points Laboratory Results: Laboratory Results 12/22/18 17:45 12/22/18 17:45 Medications Given: Aspirin (Aspirin) 81 mg PO DAILY JEFF Stop: 06/21/19 14:14 Last Admin: 12/24/18 09:00 Dose: 81 mg Atorvastatin Calcium (Lipitor) 10 mg PO HS JEFF Stop: 06/21/19 20:59 Last Admin: 12/23/18 21:49 Dose: 10 mg Carvedilol (Coreg) 50 mg PO BIDMEAL JEFF Stop: 06/21/19 07:59 Last Admin: 12/24/18 09:01 Dose: 50 mg Enoxaparin Sodium (Lovenox) 40 mg SC DAILY JEFF Stop: 06/21/19 08:59 Last Admin: 12/24/18 09:00 Dose: 40 mg Furosemide (Lasix Injection) 40 mg IVP BIDDIUR JEFF Stop: 06/21/19 08:59 Last Admin: 12/24/18 09:00 Dose: 40 mg Insulin Human Lispro (Humalog Lispro) 0 unit SC TIDMEAL [facility] PRN Reason: Protocol Stop: 06/21/19 07:59 Last Admin: 12/24/18 13:04 Dose: Not Given Lisinopril (Zestril) 40 mg PO DAILY JEFF Stop: 06/21/19 08:59 Last Admin: 12/24/18 09:01 Dose: 40 mg Spironolactone (Aldactone) 25 mg PO DAILY JEFF Stop: 06/21/19 08:59 Last Admin: 12/24/18 09:01 Dose: 25 mg Tiotropium [place] (Spiriva Handihaler) 18 mcg IH DAILY JEFF Stop: 06/21/19 08:59 Last Admin: 12/24/18 09:18 Dose: 1 cap Discontinued Medications Albuterol/Ipratropium (Duoneb) 3 ml IH EDNOW ONE Stop: 12/22/18 18:15 Last Admin: 12/22/18 18:17 Dose: 3 ml Furosemide (Lasix Injection) 20 mg IVP EDNOW ONE Stop: 12/22/18 19:43 Last Admin: 12/22/18 19:52 Dose: 20 mg Metolazone (Zaroxolyn) 1.25 mg PO ONCE ONE Stop: 12/23/18 10:10 Last Admin: 12/23/18 10:57 Dose: 1.25 mg Potassium Chloride (Klor-Con) 40 meq PO ONCE ONE Stop: 12/23/18 17:17 Last Admin: 12/23/18 17:44 Dose: 40 meq Potassium Chloride (Klor-Con) 10 meq PO ONCE ONE Stop: 12/24/18 11:28 Last Admin: 12/24/18 13:02 Dose: 10 meq Point of Care Test Results: Chemistry 12/22/18 17:49 POC Troponin I 0.00 ng/mL ng/mL (0.00-0.08) Departure - Departure Disposition: [facility] Inpatient Acute Clinical Impression: CHF (congestive heart failure) Qualifiers: Heart failure type: systolic Heart failure chronicity: unspecified Qualified Code(s): I50.20 - Unspecified systolic (congestive) heart failure Condition: Fair Report Scribed for: Andie Patel Report Scribed by: Felecia Saez Date of Report: 12/22/18 Time of Report: 17:31 Physician Review and Approval Statement: 12/22/18 16:41 Portions of this note were transcribed by the medical support assistant. I, Dr. Andie Patel, personally performed the history, physical exam, and medical decision- making; and confirmed the accuracy of the information in the transcribed note.
[2018-12-22 18:03] LABS: PLATELET COUNT 162 10^3/uL (150-400)
[2018-12-22] MEDS ORDERED: IPRATROPIUM/ALBUTEROL 3 ML DEYVIAL IH ONE (18:14)
[2018-12-22] MEDS ORDERED: FUROSEMIDE 20 MG/2 ML VIAL IVP ONE (19:42)
[2018-12-22] MEDS ORDERED: oxyCODONE IR 5 MG TAB PO PRN (19:51)
[2018-12-22] MEDS ORDERED: HYDROmorphONE/DILAUDID 1 MG/ML INJ IVP PRN (19:51)
[2018-12-22] MEDS ORDERED: PROMETHAZINE HCL 25 MG/ML INJ IVP PRN (19:51)
[2018-12-22] MEDS ORDERED: ONDANSETRON 4 MG/2 ML VIAL IVP PRN (19:51)
[2018-12-22] MEDS ORDERED: ONDANSETRON DISINTEGRATING 4 MG TAB PO PRN (19:51)
[2018-12-22] MEDS ORDERED: ACETAMINOPHEN 325 MG TAB PO PRN (19:51)
--- NOTE | 2018-12-22 22:28 | PDGENHP ---
History and Physical - Chief Complaint SOB/leg swelling - History of Present Illness Patient is a 58 yo M with a PMH of non ischemic CM with combined systolic and diastolic heart failure with most recent EF of 32 as well as a hx of COPD and recent admission for PNA presenting with complaints of sob and swelling in his legs for the last 2 days. Patient is a relatively poor historian but it also sounds as though he was very concerned as he has had large amounts of nasal discharges for the last couple of days and he brought a sales account representative sample in for us to see. He has not had chest pain or palpitations, he has not had fever but has had chills. He denies any n/v or urinary complaints. He has had some indigestion. He is followed by Dr. Vanegas of cardiology and patient denies any changes in his medications recently. History Information - Allergies/Home Medication List Allergies/Adverse Reactions: No Known Allergies Allergy (Verified 12/22/18 16:21) Home Medications: Albuterol Sulfate [Proair Hfa] 1 - 2 puffs IH Q4-6PRN PRN 10/06/18 [Last Taken 12/22/18 08:00] Simvastatin [Zocor] 20 mg PO HS 10/06/18 [Last Taken 12/20/18 21:00] I have personally reviewed and updated: family history, medical history, social history, surgical history - Past Medical History CHF (EF 32%, combined diastolic), COPD, hypertension, hyperlipidemia Additional medical history: CKD, Stage III. moderate MR - Surgical History Reports: no pertinent surgical hx - Family History Additional family history: lupus. 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 Review of Systems Review of Systems: ROS: 10pt was reviewed & negative except for what was stated in HPI & below Physical Exam Physical Exam: Temp Pulse Resp BP Pulse Ox 36.6 C 104 H 20 127/88 H 99 12/22/18 21:42 12/22/18 21:42 12/22/18 21:42 12/22/18 21:42 12/22/18 21:42 O2 (L/minute) 2 Constitutional: not in pain, chronically ill appearing Eyes: PERRL, anicteric sclera Ears, Nose, Mouth, Throat: moist mucous membranes, hearing normal Cardiovascular: regular rate and rhythym, no murmur, rub, or gallop, edema Respiratory: no respiratory distress, inspiratory crackles Gastrointestinal: normoactive bowel sounds, soft, non-tender abdomen Genitourinary: no bladder tenderness Skin: warm, normal color Musculoskeletal: full muscle strength Neurologic: AAOx3 Psychiatric: interacting appropriately, not anxious, not encephalopathic Lab Data & Imaging Review 12/22/18 17:45 12/22/18 17:45 WBC 6.70 10^3/uL (3.80-9.50) 12/22/18 17:45 RBC 3.82 10^6/uL (4.40-6.38) L 12/22/18 17:45 Hgb 11.6 g/dL (13.7-17.5) L 12/22/18 17:45 Hct 35.9 % (40.0-51.0) L 12/22/18 17:45 MCV 94.0 fL (81.5-99.8) 12/22/18 17:45 MCH 30.4 pg (27.9-34.1) 12/22/18 17:45 MCHC 32.3 g/dL (32.4-36.7) L 12/22/18 17:45 RDW 20.3 % (11.5-15.2) H 12/22/18 17:45 Plt Count 162 10^3/uL (150-400) 12/22/18 17:45 MPV 9.8 fL (8.7-11.7) 12/22/18 17:45 Neut % (Auto) Not Reported 12/22/18 17:45 Lymph % (Auto) Not Reported 12/22/18 17:45 [place] % (Auto) Not Reported 12/22/18 17:45 Eos % (Auto) Not Reported 12/22/18 17:45 Baso % (Auto) Not Reported 12/22/18 17:45 Nucleat RBC Rel Count Not Reported 12/22/18 17:45 Absolute Neuts (auto) Not Reported 12/22/18 17:45 Absolute Lymphs (auto) Not Reported 12/22/18 17:45 Absolute Monos (auto) Not Reported 12/22/18 17:45 Absolute Eos (auto) Not Reported 12/22/18 17:45 Absolute Basos (auto) Not Reported 12/22/18 17:45 Absolute Nucleated RBC Not Reported 12/22/18 17:45 Immature Gran % Not Reported 12/22/18 17:45 Seg Neutrophils % 73.8 % 12/22/18 17:45 Band Neutrophils % 0.0 % 12/22/18 17:45 Lymphocytes % 19.2 % 12/22/18 17:45 Monocytes % 3.0 % 12/22/18 17:45 Eosinophils % 0.0 % 12/22/18 17:45 Basophils % 0.0 % 12/22/18 17:45 Metamyelocytes % 2.0 % 12/22/18 17:45 Myelocytes % 2.0 % 12/22/18 17:45 Promyelocytes % 0.0 % 12/22/18 17:45 Blast Cells % 0.0 % 12/22/18 17:45 Immature Gran # Not Reported 12/22/18 17:45 Absolute Seg Neuts 4.94 10^3/uL (1.70-6.50) 12/22/18 17:45 Absolute Band Neuts 0.00 10^3/uL (0.00-0.70) 12/22/18 17:45 Absolute Lymphocytes 1.29 10^3/uL (1.00-3.00) 12/22/18 17:45 Absolute Monocytes 0.20 10^3/uL (0.30-0.80) L 12/22/18 17:45 Absolute Eosinophils 0.00 10^3/uL (0.03-0.40) L 12/22/18 17:45 Absolute Basophils 0.00 10^3/uL (0.02-0.10) L 12/22/18 17:45 Absolute Metamyelocyte 0.13 10^3/mL (0.00-0.00) H 12/22/18 17:45 Absolute Myelocytes 0.13 10^3/mL (0.00-0.00) H 12/22/18 17:45 Absolute Promyelocytes 0.00 10^3/uL (0.00-0.00) 12/22/18 17:45 Absolute Plasma Cells 0.00 10^3/uL (0.00-0.00) 12/22/18 17:45 Nucleated RBCs 7.1 /100 WBC (0-0) H 12/22/18 17:45 Absolute Blast Cells 0.00 10^3/uL (0.00-0.00) 12/22/18 17:45 Plasma Cells % 0.0 % 12/22/18 17:45 Platelet Estimate ADEQUATE (ADEQ) 12/22/18 17:45 Polychromasia 1+ H 12/22/18 17:45 Echinocytes 2+ H 12/22/18 17:45 Sodium 139 mEq/L (135-145) 12/22/18 17:45 Potassium 3.7 mEq/L (3.5-5.2) 12/22/18 17:45 Chloride 109 mEq/L (97-110) 12/22/18 17:45 Carbon Dioxide 23 mEq/l (22-31) 12/22/18 17:45 Anion Gap 7 mEq/L (6-14) 12/22/18 17:45 BUN 31 mg/dL (7-23) H 12/22/18 17:45 Creatinine 1.0 mg/dL (0.7-1.3) 12/22/18 17:45 Estimated GFR > 60 12/22/18 17:45 Glucose 110 mg/dL (70-100) H 12/22/18 17:45 Hemoglobin A1c 7.4 % (4.0-6.0) H 12/22/18 19:05 Estim Average Glucose 166 mg/dL (68-126) H 12/22/18 19:05 Calcium 8.5 mg/dL (8.5-10.4) 12/22/18 17:45 Total Bilirubin 2.2 mg/dL (0.1-1.4) H 12/22/18 19:05 Conjugated Bilirubin 1.1 mg/dL (0.0-0.5) H 12/22/18 19:05 Unconjugated Bilirubin 1.1 mg/dL (0.0-1.1) 12/22/18 19:05 AST 56 IU/L (17-59) 12/22/18 19:05 ALT 30 IU/L (21-72) 12/22/18 19:05 Alkaline Phosphatase 1404 IU/L (38-126) H 12/22/18 19:05 POC Troponin I 0.00 ng/mL (0.00-0.08) 12/22/18 17:49 NT-Pro-B Natriuret Pep 67080 pg/mL (0-125) H 12/22/18 17:40 Total Protein 6.0 g/dL (6.3-8.2) L 12/22/18 19:05 Albumin 3.0 g/dL (3.5-5.0) L 12/22/18 19:05 TSH 2.570 uIU/mL (0.465-4.680) 12/22/18 19:05 Nasal Influenza A PCR NEGATIVE FOR FLU A (NEGATIVE) 12/22/18 18:20 Nasal Influenza B PCR NEGATIVE FOR FLU B (NEGATIVE) 12/22/18 18:20 Visualized and Interpreted Chest x-ray results: Yes Chest X-Ray results: other (cardiogmegaly, pulm vasc congestion and pulm edema) Visualized and Interpreted EKG results: Yes EKG Interpretation: Positive for: left bundle branch block EKG additional interpertation: ST. unchanged Assessment & Plan Assessment: CHF (congestive heart failure) (Acute) 58 yo M with PMH of non ischemic CM with EF of 32% presenting with acute exacerbation of chf # acute on chronic systolic heart failure: patient with new pulmonary edema and lower extremity edema as well as elevated BNP of 43,000 in the setting of sob and generalized malaise. Given IV lasix x 1 and will start lasix 40mg IV BID ( on 40 oral daily at home), monitoring I/O's. From review of PCP notes there has been a history of medication non compliance and that may be contributing. Last echo in August 2108, will consult cardiology and defer repeat echo for now. Monitor on tele, trend trops and will get TSH. Continue BB, lisinopril, aldactone. # SOB: without hypoxia documented but likely due to above, does not have flu or evidence of pna on imaging # COPD: without e/o acute exacerbation currently, will add PRN albuterol for now and monitor # DM: this does appear to be a new diagnosis with slightly elevated glucose on arrival and A1c of 7.4, will start SSI for now but likely dc on metformin so long as renal function stable with diuresis # elevated LFTs: with slightly elevated bili but significant elevated in alk phos, possibly hepatic congestion from chf but will confirm that alk phos is hepatic in origin with f/u GGT and trend, consider RUQ US if confirmed to be hepatic in origin # ckd: currently slightly better than usual baseline, monitoring on diuresis # IP status, suspect patient will require > 48 hours for eval/mgmt of above and IP diuresis Patient new to my care. Old records reviewed and summarized as above. Care plan reviewed with ED doctor as above.
[2018-12-22] MEDS ORDERED: ALBUTEROL 3 ML DEYVIAL IH PRN (22:41)
[2018-12-22] MEDS ORDERED: D50W 25 GM/50 ML VIAL IVP PRN (22:45)
--- NOTE | 2018-12-23 07:05 | CPEKG ---
Test Reason : OPEN Blood Pressure : / mmHG Vent. Rate : 105 BPM Atrial Rate : 105 BPM P-R Int : 146 ms QRS Dur : 167 ms QT Int : 424 ms P-R-T Axes : 073 -52 113 degrees QTc Int : 561 ms Sinus tachycardia Probable left atrial enlargement Left bundle branch block Confirmed by Andie Patel ([id number]) on 12/23/2018 7:04:59 AM Referred By: Andie Patel Confirmed By:Andie Patel
--- NOTE | 2018-12-23 07:56 | CPEKG ---
Test Reason : OPEN Blood Pressure : / mmHG Vent. Rate : 099 BPM Atrial Rate : 100 BPM P-R Int : 147 ms QRS Dur : 168 ms QT Int : 453 ms P-R-T Axes : 107 225 056 degrees QTc Int : 582 ms Sinus tachycardia Atrial premature complexes Left atrial enlargement Consider left ventricular hypertrophy Lateral infarct, old Anterior Q waves, possibly due to LVH Tall T, consider metabolic/ischemic abnrm Prolonged QT interval Confirmed by Uriah Grayson ([id number]) on 12/23/2018 7:56:26 AM Referred By: Jorje Stoner Confirmed By:Uriah Grayson
[2018-12-23 08:20] LABS: PLATELET COUNT 141 10^3/uL (150-400)
[2018-12-23] MEDS ORDERED: FUROSEMIDE 20 MG/2 ML VIAL IVP SCH (09:00)
--- NOTE | 2018-12-23 09:01 | PDMN ---
Medical Necessity Medical necessity: Change to IP, as of 12/22/18, per & MCG M-190; los >2 mn for ongoing management of acute CHF exacerbation w/tachycardia, new pulmonary edema, LE edema & elevated BNP of 43,000 in the setting of shortness of breath & generalized malaise; requiring further cardiac monitoring, IV diuresis & Cardiology consult; hx recent pneumonia, cardiomyopathy, COPD, CKD stage 3
[2018-12-23] MEDS: TIOTROPIUM INHALER 18 MCG/DOSE 5 DOSE/MDI IH SCH (09:51)
[2018-12-23] MEDS ORDERED: ALTEPLASE 2 MG VIAL IVP PRN (10:02)
[2018-12-23] MEDS ORDERED: METOLAZONE 2.5 MG TAB PO ONE (10:09)
[2018-12-23] MEDS: CARVEDILOL 25 MG TAB PO SCH ×2 (10:43→21:49)
[2018-12-23] MEDS: LISINOPRIL 40 MG TAB PO SCH (10:43)
[2018-12-23] MEDS: SPIRONOLACTONE 25 MG TAB PO SCH (10:44)
[2018-12-23] MEDS: ENOXAPARIN 40 MG/0.4 ML SYR SC SCH (10:45)
[2018-12-23] MEDS: FUROSEMIDE 40 MG/4 ML VIAL IVP SCH ×2 (10:46→16:30)
[2018-12-23] MEDS: INSULIN LISPRO 100 UNIT/ML SC SCH ×3 (10:48→17:11)
--- NOTE | 2018-12-23 12:05 | ASMTCMCOM ---
CM Note CM Note Notes: Pts case discussed in tx rounds. Pt is a 58 y/o man admitted for dyspnea. Pt is having a picc line placed. Pt will be getting iv lasix for the next couple of days. Pt will most likely d/c independent when medically stable. No therapies ordered at this time. CM made a referral to [facility]. CM available for changes. Plan: Independent Date Signed: 12/23/2018 12:04 PM Electronically Signed By:JOSIAH Killian
--- NOTE | 2018-12-23 12:31 | ECHO ---
[email or web address] [address] Main: [phone] Fax: Transthoracic Echocardiogram Name: GERI RUIZ MR#: [id number] Study Date: 12/23/2018 Study Time: 09:43 AM Date of : 1960 Age: 58 year(s) Height: 172.7 cm (68 in.) Weight: 62.14 kg (137 lb.) BSA: 1.74 m2 Gender: Male Examination: Echo Indication: CHF, known NICM Image Quality: Adequate Contrast: Requested by: Michael Ponce BP: 135 mmHg/92 mmHg Heart Rate: Rhythm: Indication: CHF, known NICM Procedure Staff Full Charge Bookkeeper: Moon Dumont RDCS Reading Physician: Vivek Pop MD Requesting Provider: Conclusions: Moderately dilated left ventricle. Mild concentric LV hypertrophy. Severely reduced systolic LV function. The ejection fraction is visually estimated to be 15 %. Global hypokinesis, septal, apical hypokinesis. Mildly dilated right ventricle. The left atrium is severely dilated. The right atrium is severely dilated. Severe mitral valve regurgitation is present. Mean mitral valve gradient 8mmHg. Severe aortic valve regurgitation is present. PHT 319 ms. Severe tricuspid regurgitation is present. The pulmonary artery pressure is moderately increased. Right ventricular systolic pressure measures 55mmHg. Small pericardial effusion. No echocardiographic evidence of hemodynamic compromise. Compared to Aug 2018 there is significant decline in heart function with LVEF of 15% (32% in Aug 2018). There has been marked progression in valvular disease with severe MR TR and AI. Measurements: Chambers Valvular Assessment AV/MV Valvular Assessment TV/PV Normal Normal Normal Name Value Range Name Value Range Name Value Range Ao Lorrie (2D): 2.5 cm (1.4 cm-2.6 AV Vmax: 2.03 m/s (1 m/s-1.7 TR Vmax: 3.54 mm/s ( - ) cm) m/s) TR PGmax: 50 mmHg ( - ) AV maxP mmHg ( - ) syst. PAP: 55 mmHg ( - ) Patient: GERI RUIZ Study Date: 12/23/2018 Page 1 of 3 09:43 AM IVSd (2D): 1.3 cm (0.6 cm-1.1 AV meanP mmHg ( - ) PV Vmax: 0.72 m/s (0.6 m/s-0.9 cm) JERRICA (VTI): 1.3 cm ( - ) m/s) LVDd (2D): 6.6 cm (4.2 cm-5.9 AR (PHT): 319 ms ( - ) PV PGmax: 2 mmHg ( - ) cm) MV E Vmax: 1.46 m/s ( - ) LVDs (2D): 5.8 cm (2.1 cm-4 MV A Vmax: 1.39 m/s ( - ) cm) MV E/A: 1.05 ( - ) LVPWd (2D): 1.2 cm (0.6 cm-1 cm) MV meanP mmHg ( - ) LVOTd 1.9 cm 1.9 cm mm MV PHT: 0.024 s ( - ) LVEF (MOD4): 26 % (>=55 %) MVA (Vmax): 1.0 m/s ( - ) Visual EF: 15 % MVA (PHT): 9.2 s ( - ) RVDd(2D): 3.1 cm (1.9 cm-3.8 cmmm) Continued Measurements: Chambers Valvular Assessment AV/MV Valvular Assessment TV/PV Name Value Name Value Name Value LADs: 4.6 cm MV DecTime: 99 m/s CVP (est.): 5 mmHg LADs Lon.4 cm MV E/E' Lateral: 12.50 LA Area: 25.8 cm2 MV VTI: 35.10 cm LA Volume: 85 ml MR ERO: 0.670 cm2 LA Volume Index: 48.9 ml/m2 MR PISA radius: 12 mm RA Area: 25.3 cm2 MR Reg. Volume: 109 ml AR Vmax: 4.69 cm/s Additional Vessels Name Value Ao Ascendin.9 cm Inferior Vena Cava: 1.9 cm Findings: Left Ventricle: Moderately dilated left ventricle. Mild concentric LV hypertrophy. Severely reduced systolic LV function. The ejection fraction is visually estimated to be 15 %. Unable to assess diastolic dysfunction. Global hypokinesis, septal, apical hypokinesis. Right Ventricle: Mildly dilated right ventricle. Normal RV function. Left Atrium: The left atrium is severely dilated. Right Atrium: The right atrium is severely dilated. Mitral Valve: The mitral valve is normal in appearance and function. Severe mitral valve regurgitation is present. Mean mitral valve gradient 8mmHg. Aortic Valve: The aortic valve is tri-leaflet. Aortic sclerosis is present. Severe aortic valve regurgitation is present. Mean aortic valve gradient 9. PHT 319 ms. Tricuspid Valve: The tricuspid valve is normal in appearance and function. Severe tricuspid regurgitation is present. The pulmonary artery pressure is moderately increased. Right ventricular systolic pressure measures 55mmHg. Pulmonic Valve: The pulmonic valve is normal in appearance and function. Mild pulmonic valve regurgitation is noted. Aorta: The aorta is normal. Normal size aortic root measuring 2.5 cm. Normal size ascending aorta measuring 2.9 cm. IVC: The IVC is normal sized. Patient: GERI RUIZ Study Date: 12/23/2018 Page 2 of 3 09:43 AM Pericardium: Small pericardial effusion. No echocardiographic evidence of hemodynamic compromise. (No Signature Object) Patient: GERI RUIZ Study Date: 12/23/2018 Page 3 of 3 09:43 AM [id number]
--- NOTE | 2018-12-23 13:06 | CPEKG ---
Test Reason : OPEN Blood Pressure : / mmHG Vent. Rate : 099 BPM Atrial Rate : 099 BPM P-R Int : 148 ms QRS Dur : 165 ms QT Int : 453 ms P-R-T Axes : 084 -59 095 degrees QTc Int : 582 ms Sinus rhythm Probable left atrial enlargement Left bundle branch block Confirmed by Uriah Grayson ([id number]) on 12/23/2018 1:06:23 PM Referred By: Jorje Stoner Confirmed By:Uriah Grayson
--- NOTE | 2018-12-23 15:29 | GCON ---
[f rep st] CONSULTATION CARDIOLOGY CONSULTATION REFERRING PHYSICIAN: Jorje Stoner MD SUPERVISING [employer] SUPERVISOR: Dr. Vivek Pop. INDICATION FOR CARDIOLOGY CONSULTATION: Increased shortness of breath, known history of nonischemic cardiomyopathy, with most recent echocardiogram showing EF of 30% to 35% (08/2018). HISTORY OF PRESENT ILLNESS: The patient is a 58-year-old male who is known to our practice. His primary bone glue maker is Dr. Grant Vanegas. He has significant past history that includes nonischemic cardiomyopathy first diagnosed in 2016, off cardiac catheterization of March of 2017, left bundle branch block, COPD, hypertension, hyperlipidemia, and renal insufficiency. Patient reporting he has been feeling well since his last hospital discharge with a right-sided pneumonia back in October. He states that he has been having ongoing fatigue symptoms with mild shortness of breath. Patient does state over the last 3 months, losing approximately 20 lb, due to lack of appetite. He does feel over the last 2 weeks, this has worsened. He reports that he has noted a significant increase in shortness of breath. He had also noted some increased swelling in his legs, especially over the last 2 days. He states that he used to be able to walk 2 to 3 blocks with no problems, but now, he can barely walk 10 feet without stopping for shortness of breath. In the last day or so, he has been somewhat short of breath at rest. He has noticed orthopnea and he states over the last 2 days, he is waking up due to shortness of breath. He reports no chest pain, pressure, or symptoms suggesting of ischemia. Denies of any recent fevers, chills, or night sweats. Denies of any bleeding issues. Reports no symptoms suggestive of TIA or CVA. With worsening symptoms, he decided to come to the [facility] Emergency Department for further evaluation. Upon arrival, chest x-ray was done, which noted cardiomegaly with a component of CHF and pulmonary vascular congestion, and mild pulmonary edema. Electrocardiogram was done, which noted sinus rhythm with left bundle branch block. Laboratories were drawn, which did note a significant elevated proBNP of 43,000 , initial troponin was 0.00. He was given 1 dose of IV Lasix in the ER, with mild urinary output, reporting mild improvement in symptoms. He was admitted to the telemetry floor, where he has maintained sinus rhythm with occasional PVC, no malignant arrhythmias or pauses. He denies of any chest pressure or pain or symptoms suggesting of ischemia. Patient states that he has been compliant with all his medications. PAST MEDICAL HISTORY: Includes: 1. Chronic kidney disease. 2. Chronic systolic heart failure. 3. COPD. 4. Hypertension. 5. Hyperlipidemia. 6. Previous tobacco abuse. 7. Hyperlipidemia. 8. Left bundle branch block PAST SURGICAL HISTORY: Patient reports no previous surgeries. FAMILY HISTORY: The patient and his brother report family history of CHF with father dying of CHF. SOCIAL HISTORY: He is not . He is a former smoker. He has 2 adult children who are alive and well. He rarely uses alcohol. Denies any drug use. 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 ALLERGIES: No known drug allergies. HOME MEDICATIONS: Spiriva 18 mcg inhaled daily, aldactone 25 mg p.o. daily, simvastatin 20 mg p.o. h.s., lisinopril 40 mg p.o. daily, Lasix 40 mg p.o. daily , carvedilol 50 mg p.o. b.i.d., albuterol 1 to 2 puffs inhaled q.4 hours p.r.n. REVIEW OF SYSTEMS: A 10-point review of systems done on patient, all negative, except as mentioned above. PHYSICAL EXAMINATION: GENERAL APPEARANCE: Thin, well-groomed, male. He is alert oriented to person, place, time, situation. He does report being dyspneic at rest, but appears to be under no acute distress. VITAL SIGNS: Current: Blood pressure of 135/92. Heart rate 97, sinus rhythm on the monitor. Respirations are 21, saturating 93% on 1 L nasal cannula. Temperature 36.7 degrees Celsius. HEENT: Head is normocephalic. Lips and tongue are pink and moist with no signs of cyanosis. Conjunctivae pink. NECK: Trachea is midline, +2 carotid pulses bilateral. 5 to 6 cm of JVD on examination at a 45 degree angle. No auscultated bruits. RESPIRATORY: Lungs diminished in bases bilateral. Mild rales noted in bases. No expiratory wheezing. No rhonchi. No accessory muscle use. No intercostal muscle retraction noted. CARDIAC: Regular rate, regular rhythm, S1, S2. A 2/6 systolic murmur noted along the left sternal border. ABDOMEN: Firm, nontender. Bowel sounds x4 quadrants. No organomegaly. No palpable masses. SKIN: Warm, dry. No cyanosis. No clubbing, +2 to 3 pedal ankle edema ranging to knees. VASCULAR: +2 carotids bilateral, +2 radials bilateral, +1 dorsal pedal and posterior tibial pulses bilateral. LABORATORY STUDIES: Laboratory studies drawn today showed WBC of 7.40, hemoglobin 11.4, hematocrit 35.2, platelet count 141. Sodium 140, potassium 4.4 , chloride 112, CO2 20, BUN 32, creatinine 0.9, glucose 100, calcium 8.2. On admission, the patient was noted to have total bilirubin of 2.2, AST of 56, ALT 30, alkaline phosphatase 1440, before 1404. Troponin of 0.00. ProBNP 43,000. Total protein 6.0, albumin 3.0. TSH 2.570. Patient has had 2 other troponin levels 0.035 and 0.044 drawn this morning. Patient was noted to be negative for flu A and flu B. STUDIES: Chest x-ray as mentioned above. Electrocardiogram as mentioned above. Previous echocardiogram done on August 25, 2018, showing mildly dilated LV, mild concentric LVH, EF of 32%, paradoxical septal motion suggesting bundle branch block, grade 1 diastolic dysfunction with elevated LV filling pressures, normal RV function. LA was moderately dilated, moderate mitral regurgitation with a mean gradient of 4 mmHg. Moderate aortic regurgitation. Mild TR. RVSP of 36 mmHg. Echocardiogram done today showing moderately dilated LV with mild concentric LVH , severely reduced LV systolic function with EF estimated to be 15% with global hypokinesis, septal to apical hypokinesis. Mildly dilated RV. LA is severely dilated, RA is severely dilated. Severe MR, with mean gradient of 8 mm Hg. Severe AI. Severe TR. RVSP estimated at 55 mmHg with a small pericardial effusion with no hemodynamics compromise. Cardiac catheterization done on 03/18/2017, showing no significant coronary artery disease. EDP was estimated at 30 mmHg. ASSESSMENT AND PLAN: 1. Acute on chronic systolic heart failure: Patient reporting worsening shortness of breath, and now experiencing [place] [employer] function class III to IV symptoms, with his baseline being II to II. New echocardiogram showing ejection fraction dropping from 32% down to 15% today. Patient noting increased peripheral edema. Pulmonary edema noted on chest x-ray and BNP of 43, 000 . At this time, I agree with continuing on Lasix. He was given 1 dose last evening, of intravenous Lasix 20 mg. he has been started on Lasix 40 mg intravenous b.i.d. With his worsening symptoms, noting not significant output from the 20 mg last night, I have ordered for him to have a dose of metolazone 1.25 mg with today's dose. With his history of renal insufficiency, we will have to follow his renal function closely. I have also scheduled him to have a repeated potassium and magnesium done later this afternoon. Nursing staff does state that he is a difficult stick, and I have ordered for him to get a PICC line done. His blood pressure, appears to be tolerating his home medications, continue on current doses of carvedilol, lisinopril, and Aldactone for the time being. 2. Nonischemic cardiomyopathy: Patient noted to have nonischemic cardiomyopathy since 2017, probably due to hypertension, worsening with symptoms. He does have known history of left bundle branch block, and reviewing Dr. Vanegas's most previous office notes, he has been asked to have a BiV AICD implantation done, which he has declined. We have discussed implantation again today, and he is willing to do this. Will determine after we are able to get him more at a euvolemic state, to consider radiation device implantation. Also, with his worsening ejection fraction while being on good medication management, and decreasing function, I will also ask Dr. Piedra, our heart failure specialist to also see patient tomorrow for evaluation. 3. Mildly elevated troponin: Patient with indeterminate troponin levels, will repeat later this afternoon. More than likely, this is due to stretch and flow mismatch of his congestive heart failure. He has had a previous heart catheterization in 2017, which showed no flow limiting disease. He reports no symptoms suggesting of ischemia. Will continue to trend. Potentially, patient will need either stress testing or heart catheterization prior to discharge. Will start him on aspirin therapy, and continue on statin therapy. Continue beta-carolina as mentioned above. 4. Hypertension: Blood pressure appears to be well controlled on current medication regime. No changes at this time. 5. Valvular heart disease: Patient with known history of moderate aortic insufficiency and mitral regurgitation, off today's echo showing significantly worsened disease. Medical management as above. I have discussed this with Dr. Guardado, CT surgery, who will consult also. 6. Elevated liver function tests: Patient noted with a significantly elevated alkaline phosphate, will monitor. Potentially due to liver congestion from his congestive heart failure. Will monitor as he diuresis. Potentially consider abdominal ultrasound. 7. Chronic kidney disease: Patient's baseline appears to be reviewing previous records, baseline between 1.3 and 1.4, today at 0.9. Will monitor closely with diuresis. 8. Chronic obstructive pulmonary disease: Patient has been resumed on home medications. Will defer to treatment to hospital services. Thank you for this consultation. We will be glad to follow along with you. /[id number]/MODL MTDD
--- NOTE | 2018-12-23 15:30 | HOSPPROG ---
Hospitalist Progress Note Assessment/Plan: 58 yo M with PMH of non ischemic CM with EF of 32% presenting with acute exacerbation of chf 1. cute on chronic systolic heart failure: TTE with markedly worsened EF. BNP 43k - Cardiology following - Continue diuresis with 40mg IV lasix BID, follow I/Os and weight - Candidate for SENIOR ELECTRONICS TECHNICIAN/BiV ICD - Continue BB, lisinopril, aldactone 2. Severe valvular heart disease: Related to significant chamber dilation. MR, TR, AI. 3. COPD: No flare. Continue home meds. 4. Diabetes: New diagnosis with A1c 7.4% - Continue SSI 5. Elevated LFTs: C/w congestive hepatopathy 6. CKD: At/better than baseline VTE ppx: LMWH Code: full Diet: cardiac Dispo: Remain inpatient for IV diuresis Subjective: Tired. Breathing ok but not at baseline. No chest pain. Legs swollen. Objective: Vital Signs Temp Pulse Resp BP Pulse Ox 36.6 C 74 19 89/57 L 99 12/23/18 12:00 12/23/18 12:00 12/23/18 12:00 12/23/18 12:00 12/23/18 12:00 Laboratory Results 12/23/18 08:03 12/23/18 08:03 12/22/18 12/23/18 12/24/18 05:59 05:59 05:59 Intake Total 250 Output Total 300 475 Balance -50 -475 ICD10 Worksheet Patient Problems: Problems Problem Status Onset CHF (congestive heart failure) Acute Acute exacerbation of congestive heart failure Acute COPD (chronic obstructive pulmonary disease) Acute Shortness of breath Acute Tachycardia Acute
[2018-12-23] MEDS ORDERED: POTASSIUM CL 20 MEQ TAB PO ONE (17:16)
[2018-12-23] MEDS: ASPIRIN 81 MG CHEWABLE TAB PO SCH (17:44)
[2018-12-23] MEDS: ATORVASTATIN CALCIUM 10 MG TAB PO SCH (21:49)
[2018-12-24] MEDS: ASPIRIN 81 MG CHEWABLE TAB PO SCH (09:00)
[2018-12-24] MEDS: ENOXAPARIN 40 MG/0.4 ML SYR SC SCH (09:00)
[2018-12-24] MEDS: FUROSEMIDE 40 MG/4 ML VIAL IVP SCH ×2 (09:00→14:52)
[2018-12-24] MEDS: INSULIN LISPRO 100 UNIT/ML SC SCH ×3 (09:01→17:56)
[2018-12-24] MEDS: CARVEDILOL 25 MG TAB PO SCH ×2 (09:01→17:57)
[2018-12-24] MEDS: LISINOPRIL 40 MG TAB PO SCH (09:01)
[2018-12-24] MEDS: SPIRONOLACTONE 25 MG TAB PO SCH (09:01)
--- NOTE | 2018-12-24 09:02 | HOSPPROG ---
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 1. Acute on chronic systolic heart failure: TTE with markedly worsened EF, down to 15%. BNP 43k. Weight down 3-4kgs. 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 Severe valvular heart disease: Related to significant chamber dilation from HF. MR, TR, AI that have worsened since 08/2018. - Cardiology discussing with Dr Guardado 3. COPD: No flare. Continue home meds. 4. Diabetes: New diagnosis with A1c 7.4% - Continue SSI 5. Elevated LFTs, significantly elevated alk phos: GGT elevated, likely c/w congestive hepatopathy. Monitor. 6. CKD: At/better than baseline 7. Indeterminate troponin: Demand in setting of #1. VTE ppx: LMWH Code: full Diet: cardiac Dispo: Remain inpatient for IV diuresis Subjective: Very tired today. Urinated a lot yesterday. Breathing ok, no chest pain. Leg swelling is improving. Objective: Vital Signs Temp Pulse Resp BP Pulse Ox 37.8 C 77 18 118/75 95 12/24/18 07:33 12/24/18 07:33 12/24/18 07:33 12/24/18 07:33 12/24/18 07:33 Laboratory Results 12/23/18 08:03 12/24/18 05:45 12/23/18 12/24/18 12/25/18 05:59 05:59 05:59 Intake Total 250 1850 Output Total 300 3455 Balance -50 -1605 - Physical Exam Constitutional: no apparent distress, other (very thin) Eyes: PERRL, anicteric sclera Ears, Nose, Mouth, Throat: moist mucous membranes Cardiovascular: regular rate and rhythym, systolic murmur, edema (2+ BLE), No JVD Respiratory: no respiratory distress, reduced air movement (bilateral bases) Gastrointestinal: normoactive bowel sounds, soft, non-tender abdomen, no palpable masses Genitourinary: no bladder fullness, no bladder tenderness, no renal bruits Skin: no rashes or abrasions, no fluctuance, no induration Musculoskeletal: full muscle strength Neurologic: AAOx3 Psychiatric: interacting appropriately ICD10 Worksheet Patient Problems: Problems Problem Status Onset CHF (congestive heart failure) Acute Acute exacerbation of congestive heart failure Acute COPD (chronic obstructive pulmonary disease) Acute Shortness of breath Acute Tachycardia Acute
[2018-12-24] MEDS: TIOTROPIUM INHALER 18 MCG/DOSE 5 DOSE/MDI IH SCH (09:18)
[2018-12-24] MEDS ORDERED: POTASSIUM CL 10 MEQ TAB PO ONE (11:27)
--- NOTE | 2018-12-24 11:41 | PDCARPN ---
Cardiology Progress Note Chief Complaint: Reports shortness breath has improved. Assessment/Plan: Assessment: 58-year-old male with significant history that includes nonischemic cardiomyopathy 1st diagnosed in 2017, left bundle branch block, COPD, hypertension, hyperlipidemia, mitral regurgitation aortic insufficiency and renal insufficiency. Patient has been noted off of serial echocardiograms over last 2 years to have a EF of 30-35% (echocardiogram August of 2018). Patient admitted yesterday for complaint of significant shortness of breath with or without exertion and increased [place]. [place] [address]. Echocardiogram done on 12/23/2018 moderately dilated LV with mild concentric LVH , severely reduced LV systolic function with EF of 15% with global hypokinesis, septal to apical hypokinesis, mildly dilated RV, LA severely dilated, RA severely dilated, severe MR, severe AI, severe TR, RVSP of 55 mm Hg, small pericardial effusion with no hemodynamic compromise. Noted on admission to have indeterminate troponin of 0.035, peaking at 0.044. Chest x-ray on admission showing CHF with mild pulmonary edema. 12/24/2018: Patient reporting significant improvement in shortness of breath today, no longer having resting symptoms. Weight is down 3.5 kilos. O>I. Continues to have +2 peripheral edema to knees bilateral lower extremities. Denies of any chest pain or pressure. Sinus rhythm on monitor with no malignant arrhythmias or pauses. Plan: 1. Acute on chronic systolic heart failure: Improvement IV diuresis. Continue on current dose of IV Lasix. Patient continue on home dose of carvedilol, lisinopril, and Aldactone. Continue monitoring I&Os, daily weights. Dr Piedra asked for consult. 2. Nonischemic cardiomyopathy: In past patient has declined Bi V AICD, has stated is willing to have procedure done at this time. Will continue med management as above. 3. Indeterminate troponin level elevation on admission: Probable due to worsening CHF, within normal limits today. Reporting no symptoms suggesting of ischemia. Most recent catheterization in 2016 showing no flow limiting disease. Continue on anti-platelet therapy of aspirin. Statin therapy. 4. Valvular heart disease: Echo showing severe MR, severe TR, severe AI. New change since previous echo in August of 2018. Have asked CT surgery to evaluate. Probable due to dilation from heart failure. Med management above. 5. Hypertension: Blood pressure within normal limits on home medications, no changes at this time. 6. Chronic kidney disease: Creatinine maintaining within normal limits. Continue to monitor 7. Elevated liver function tests: Probable due to liver congestion due to CHF. Plan on repeating CMP in a.m.. 8. COPD: Resumed on home medication. Defer treatment to hospitalist Services. 12/24/18 11:41 Subjective: Patient reports fatigue, but shortness of breath has improved. Reports no chest pain or pressure. Reports orthopnea has improved. Denies of any palpitations, lightheadedness, near-syncope or syncopal events. Reviewed/Discussed With: family (Patient's 2 brothers), hospitalist (Dr Frias ), other (Dr. Pop, Dr. Piedra, Dr Guardado) Objective: Vital Signs (8 Hrs) Temp Pulse Resp BP Pulse Ox 12/24/18 11:37 92/59 L 12/24/18 11:36 37.2 C 77 18 88/54 L 94 12/24/18 07:33 37.8 C 77 18 118/75 95 12/24/18 04:00 36.8 C 78 17 106/86 H 98 Intake/Output (24 Hrs) 12/23/18 12/24/18 12/25/18 05:59 05:59 05:59 Intake Total 250 1850 Output Total 300 3455 Balance -50 -1605 Intake: Oral (ml) 250 1850 Output: Urine (ml) 300 3455 Urinal 300 3455 Other: Weight 62.5 kg 59.012 kg Intake Quantity Yes Sufficient Number of Voids Urinal 1 1 Result Diagrams: 12/23/18 08:03 12/24/18 05:45 Cardiac Labs: Cardiac Lab Results (72 Hrs) 12/24/18 12/23/18 12/23/18 05:45 16:01 04:45 Troponin I 0.017 0.039 H 0.044 H 12/22/18 23:00 Troponin I 0.035 H - Physical Exam Constitutional: no apparent distress, other (Thin) Ears, Nose, Mouth, Throat: moist mucous membranes Cardiovascular: regular rate and rhythm, no rubs, systolic murmur (2 to 3/6 left sternal border), jugular vein distention (4-5 cm above sternal notch), pulses symmetric bilat, No carotid bruit Peripheral Pulses: 1+: dorsalis-pedis (R), dorsalis-pedis (L), 2+: carotid (R), carotid (L) Respiratory: other (Diminished in bases bilateral) Gastrointestinal: normoactive bowel sounds Skin: warm, No no edema (+2 peripheral edema bilateral lower extremities to knees.) Neurologic: AAOx3 Psychiatric: cooperative, interactive, following commands ICD10 Worksheet Patient Problems: Problems Problem Status Onset Acute exacerbation of congestive heart failure Acute Shortness of breath Acute COPD (chronic obstructive pulmonary disease) Acute Tachycardia Acute CHF (congestive heart failure) Acute
--- NOTE | 2018-12-24 14:07 | GCON ---
[f rep st] CONSULTATION DATE OF CONSULTATION: 12/24/2018 REFERRING PHYSICIAN: JACINTO Ridley The patient is seen at the request of Michael Ponce with the patient's permission. IMPRESSION: 1. Class IV congestive heart failure with nonischemic cardiomyopathy and underlying severe aortic mi tral and tricuspid insufficiency. 2. Remote cigarette abuse, mild. 3. History of hypertensive heart disease, S. RECOMMENDATIONS: This unfortunate gentleman presents quite late in his valvular heart disease scenar io. He could be considered for rescue mitral/aortic valve replacement and tricuspid repair if we wer e able to improve his cardiac function with medical and pacer therapy. His ejection fraction was jody sured at 30% to 35% in August and so I do believe this would be obtainable with proper observed medi heladio therapy. The patient is interested in pursuing that option, if in fact he becomes a candidate. I will discuss this with Dr. Vanegas when available and Dr. Piedra, who will be seeing him from [facility]. CHIEF COMPLAINT: A 58-year-old gentleman with known nonischemic cardiomyopathy and valvular heart di sease. This was recently seen in clinic in August with ejection fraction 35%, large left and right atria with known valvular insufficiency. Consideration for pacer therapy was considered. No discuss ion regarding surgery has occurred with this patient prior to this time. He now presents with class IV heart failure with a much lower ejection fraction, and is currently being medically stabilized. PREVIOUS MEDICAL HISTORY: Positive only for hypertension and chronic cigarette abuse of 1 pack cigar ettes per week, stopping 1 year ago. He has no known documented history of COPD that I could find. Remainder of his history is as per chart. PHYSICAL EXAMINATION: GENERAL: This is a slender gentleman lying supine in bed, qu ite pleasant, well-informed, and cooperative with discussion. He is accompanied by his brother who a lso is well informed. VITAL SIGNS: Blood pressure was 92/59, heart rate 70, respirations 18. HEENT : Normocephalic. PERRLA. NECK: Without bruits. HEART: Rate is regular with murmurs across preco rdium. LUNGS: Diminished at the bases. ABDOMEN: Soft, nontender. Bowel sounds are active. EXTRE MITIES: Pedal pulses are 1+ and symmetrical. LABORATORY/IMAGING: Please see lab and x-rays. /[id number]/MODL
--- NOTE | 2018-12-24 16:58 | SOAPPROG ---
TAMMY Progress Note Assessment/Plan: Assessment: CHF consultation performed and dictated. 58 y/o man overall poor historian. History of reportedly non-ischemic CHF and LBBB for at least two years with previous LVEF 32% with moderate AI and MR. He says he has never had a cardiac cath. Has been feeling bad for a year with increasing LOJA and fatigue. Admitted and echo now with LVEF 15%, mild LVH, severe AI/MR/TR, estimated PAS 55mmHg and LVEDD 6.6cm. He reports he has not stopped his CHF meds at all and not ETOH in over a year. REC: 1)decrease Coreg to 25mg PO BID 2)stop Lisinopril. 3)start Entresto 24/26mg PO BID in three days after washout of FAIZAN inhibitor 4)start KCL 20meq PO TID 5)after more diuresis, would do left and right heart cath this hospitalization and then place BIVAICD this hospitalization. 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 9)if did not stabilize, would send to [facility] for consideration of VAD surgery. 12/24/18 16:52 Objective: Vital Signs Temp Pulse Resp BP Pulse Ox 37.6 C 83 19 111/70 93 12/24/18 16:00 12/24/18 16:00 12/24/18 16:00 12/24/18 16:00 12/24/18 16:00 Laboratory Results 12/23/18 08:03 12/24/18 05:45 12/23/18 12/24/18 12/25/18 05:59 05:59 05:59 Intake Total 250 1850 Output Total 300 6703 934 Balance -50 -6158 -689 ICD10 Worksheet Patient Problems: Problems Problem Status Onset CHF (congestive heart failure) Acute Acute exacerbation of congestive heart failure Acute COPD (chronic obstructive pulmonary disease) Acute Shortness of breath Acute Tachycardia Acute
[2018-12-24] MEDS: ATORVASTATIN CALCIUM 10 MG TAB PO SCH (20:11)
[2018-12-24] MEDS: POTASSIUM CL 20 MEQ/15 ML UDCUP PO SCH (20:12)
[2018-12-25] MEDS: FUROSEMIDE 40 MG/4 ML VIAL IVP SCH ×2 (09:00→14:55)
[2018-12-25] MEDS: ASPIRIN 81 MG CHEWABLE TAB PO SCH (09:01)
[2018-12-25] MEDS: CARVEDILOL 25 MG TAB PO SCH ×2 (09:01→18:23)
[2018-12-25] MEDS: INSULIN LISPRO 100 UNIT/ML SC SCH ×3 (09:02→18:23)
[2018-12-25] MEDS: ENOXAPARIN 40 MG/0.4 ML SYR SC SCH (09:02)
[2018-12-25] MEDS: SPIRONOLACTONE 25 MG TAB PO SCH (09:02)
[2018-12-25] MEDS: POTASSIUM CL 20 MEQ/15 ML UDCUP PO SCH ×3 (09:02→20:10)
[2018-12-25] MEDS: TIOTROPIUM INHALER 18 MCG/DOSE 5 DOSE/MDI IH SCH (09:10)
--- NOTE | 2018-12-25 09:19 | GCON ---
[f rep st] CONSULTATION CHF CONSULT DATE OF CONSULTATION: 12/24/2018 REASON FOR CONSULTATION: Evaluate gentleman with acute on chronic systolic heart failure, and recomm end future CHF management. HISTORY OF PRESENT ILLNESS: The patient is a 58-year-old gentleman. He is a rather vague historian. He developed a nonischemic cardiomyopathy sometime in the past. His last ejection fraction was 32%. He had a chronic left bundle branch block, and declined biventricular pacing or A ICD as most recently as 2017. He had not been feeling well for about a year, with worsening shortnes s of breath and fatigue. He presented to the emergency room 2 days ago, and an echo demonstrates an LVEF of 15% with mild concentric left ventricular hypertrophy and an LVEDD of 6.6 cm with severe aort ic, mitral, and tricuspid insufficiency with an estimated PA pressure of 55 mmHg. His NT proBNP leve l was 43,000. He has gotten some IV Lasix, and he has diuresed about 7 pounds. He still is short of breath at rest and tired. He denies chest pain, palpitations or syncope. He lives in an apartment with a roommate in [place]. He does not drink alcohol, and has not smoked in about a year. He repor ts he has been compliant with his medications. PAST MEDICAL HISTORY: Acute on chronic systolic heart failure with an LVEF of 15%; severe aortic, mi tral, and tricuspid insufficiency; COPD with tobacco use until 2018; hypertension; hyperlipidemia. PAST SURGICAL HISTORY: No known surgeries. CURRENT MEDICATIONS: Aspirin 81 mg per day, atorvastatin 10 mg per day, Coreg 50 mg p.o. b.i.d., Las ix 40 mg IV b.i.d., lisinopril 40 mg per day, Aldactone 25 mg per day. ALLERGIES: No known drug allergies. SOCIAL HISTORY: The patient is single. He lives with a roommate in an apartment in [place]. He smo ked until 1 year ago, and does not drink alcohol. FAMILY HISTORY: Positive for premature coronary artery disease. REVIEW OF SYSTEMS: The patient reports no recent fevers, chills, TIA symptoms. He denies GI bleed s ymptoms, such as hematemesis, melena or bright red blood per rectum. Rest of 10-point review of syst ems is negative. PHYSICAL EXAMINATION: VITAL SIGNS: Afebrile, pulse 83, blood pressure 111/70, respirations 20, 93% on 1 L supplemental oxygen. GENERAL: A tired, thin, cachectic appearing gentleman in no acute distr ess without chest pain or using excess respiratory muscles. EYES: Pupils equal and reactive to ligh t. ENT: Oral mucosa with no cyanosis. NECK: Jugular venous pressure to 8-9 cm. Carotid pulses 2+ bilaterally with no obvious bruits. No thyromegaly noted. LUNGS: Clear to auscultation bilaterall y without rales, rhonchi or wheezing. HEART: Enlarged PMI. Regular rate and rhythm with 2/6 holosy stolic murmur and positive S3 gallop. ABDOMINAL: Mildly distended with hepatosplenomegaly noted. N o obvious ascites, guarding or rebound. EXTREMITIES: 2+ peripheral pulses, including femoral and pe fahad pulses. Trace pretibial edema. MUSCULOSKELETAL: No scoliosis. NEURO: Normal affect and mood. SPINE: No nuchal rigidity. SKIN: No bleeding or cyanosis. LABORATORY STUDIES: EKG normal sinus rhythm with left bundle branch block. Sodium 137, potassium 3.5, chloride 103, bicarb 29, BUN 36, creatinine 1.5, glucose 106. NT proBNP l evel 43,000. TSH 2.6. Troponin 0.04. IMPRESSION: A 58-year-old gentleman with acute on chronic systolic heart failure wi th a left ventricular ejection fraction of 15%, and severe aortic, mitral, and tricuspid insufficienc y with class 4 [employer] symptoms. The exact etiology of his heart failure is not c lear, whether it is an idiopathic process versus progressive valvular problems or if he has new coron teresa artery disease. He is still hypervolemic. RECOMMENDATIONS: 1. Would decrease carvedilol to 25 mg b.i.d. 2. Would stop lisinopril, and in 3 days, start him on Entresto 24/26 mg 1 b.i.d., watching closely t hat he does not develop angioedema, which is more frequent in the population. 3. Would continue on IV Lasix for probably 3-4 more days until he is euvolemic. 4. Later in this hospitalization, once compensated, would do a left and right heart catheterization. 5. Would consult EP to place a biventricular AICD this hospitalization, as long as he has no obstruc tive coronary disease that needs revascularization during his heart catheterization. 6. He is slowly improving. However, if he does decompensate refractorily, I would transfer him to a V[facility] and heart transplant program. Thank you for allowing me to participate in the care of the patient. I will follow along closely ro good during his hospitalization. /[id number]/MODL
--- NOTE | 2018-12-25 12:08 | SOAPPROG ---
SOAP Progress Note Assessment/Plan: Assessment: 58 y/o man overall poor historian. History of reportedly non-ischemic CHF and LBBB for at least two years with previous LVEF 32% with moderate AI and MR. He says he has never had a cardiac cath. Has been feeling bad for a year with increasing LOJA and fatigue. Admitted and echo now with LVEF 15%, mild LVH, severe AI/MR/TR, estimated PAS 55mmHg and LVEDD 6.6cm. He reports he has not stopped his CHF meds at all and not ETOH in over a year. He is feeling much better after several days of IV diuretics. ACEI stopped with plan to start Entresto in two days. REC: 1)no change in current meds. 2)replace K to 4.0-5.0 3)L/R cardiac cath tomorrow Saturday 4)EP-[facility] consult for placement of BIVAICD next Saturday or Saturday 5)start Entresto probably saturday AM. 12/25/18 12:05 Subjective: feels better. No longer short of breath. Denies CP, palpitations, PND or syncope. He can walk to bathroom with mild LOJA and dizziness. Denies fevers or chills. Objective: Vital Signs Temp Pulse Resp BP Pulse Ox 36.6 C 77 20 85/54 L 95 12/25/18 11:09 12/25/18 11:09 12/25/18 11:09 12/25/18 11:09 12/25/18 11:09 Laboratory Results 12/25/18 04:25 12/25/18 04:25 12/24/18 12/25/18 12/26/18 05:59 05:59 05:59 Intake Total 1850 200 Output Total 4935 4356 759 Balance -8159 -0254 -206 Physical Exam - Physical Exam General Appearance: alert, cachetic, thin EENT: PERRL/EOMI Neck: non-tender Respiratory: lungs clear Cardiac/Chest: regular rate, rhythm, gallop, systolic murmur Peripheral Pulses: 2+: carotid (R), carotid (L), femoral (R), femoral (L), dorsalis-pedis (R), dorsalis-pedis (L) Abdomen: non-tender, No guarding, No rebound Skin: warm/dry Extremities: No pedal edema Neuro/Psych: alert ICD10 Worksheet Patient Problems: Problems Problem Status Onset CHF (congestive heart failure) Acute Acute exacerbation of congestive heart failure Acute COPD (chronic obstructive pulmonary disease) Acute Shortness of breath Acute Tachycardia Acute
[2018-12-25] MEDS ORDERED: POTASSIUM CL 20 MEQ TAB PO ONE ×2 (12:09→15:00)
[2018-12-25] MEDS ORDERED: TEMAZEPAM 15 MG CAP PO PRN (12:09)
[2018-12-25] MEDS ORDERED: NITROGLYCERIN 0.4 MG BTL SL PRN (12:09)
[2018-12-25] MEDS ORDERED: ACETAMINOPHEN 325 MG TAB PO PRN (12:09)
--- NOTE | 2018-12-25 17:47 | HOSPPROG ---
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 1. Acute on chronic systolic heart failure: TTE with markedly worsened EF, down to 15%. BNP 43k. Weight down 3-4kgs. - Continue diuresis with lasix - left/right heart cath tomorrow - Likely biventricular AICD placement early next week. - Continue BB, lisinopril, aldactone 2. Severe valvular heart disease: Related to significant chamber dilation from HF. MR, TR, AI that have worsened since 08/2018. - Cardiology discussing with Dr Guardado 3. COPD: No flare. Continue home meds. 4. Diabetes: New diagnosis with A1c 7.4% - Continue SSI 5. Elevated LFTs, significantly elevated alk phos: GGT elevated, likely c/w congestive hepatopathy. Monitor. 6. CKD: At/better than baseline 7. Indeterminate troponin: Demand in setting of #1. VTE ppx: LMWH Code: full Diet: cardiac Dispo: Remain inpatient for IV diuresis, catheter Subjective: breathing better.swelling decreased Objective: Vital Signs Temp Pulse Resp BP Pulse Ox 36.9 C 81 17 87/57 L 94 12/25/18 15:14 12/25/18 15:14 12/25/18 15:14 12/25/18 15:14 12/25/18 15:14 Laboratory Results 12/25/18 04:25 12/25/18 04:25 12/24/18 12/25/18 12/26/18 05:59 05:59 05:59 Intake Total 1850 200 Output Total 3455 9645 1210 Balance -1669 -6268 -1217 - Physical Exam Constitutional: no apparent distress, appears nourished, not in pain Eyes: PERRL, anicteric sclera, EOMI Ears, Nose, Mouth, Throat: moist mucous membranes, hearing normal, ears appear normal, no oral mucosal ulcers Cardiovascular: regular rate and rhythym, no murmur, rub, or gallop Respiratory: no respiratory distress, no rales or rhonchi, clear to auscultation Gastrointestinal: normoactive bowel sounds, soft, non-tender abdomen, no palpable masses Genitourinary: no bladder fullness, no bladder tenderness, no renal bruits Skin: no rashes or abrasions, no fluctuance, no induration Musculoskeletal: full muscle strength, no muscle tenderness, normal joint ROM Neurologic: AAOx3, sensation intact bilaterally Psychiatric: interacting appropriately, not anxious, not encephalopathic, thought process linear Lymph, Heme, Immunologic: no cervical LAD, no supraclavicular LAD ICD10 Worksheet Patient Problems: Problems Problem Status Onset CHF (congestive heart failure) Acute Acute exacerbation of congestive heart failure Acute COPD (chronic obstructive pulmonary disease) Acute Shortness of breath Acute Tachycardia Acute
[2018-12-25] MEDS: ATORVASTATIN CALCIUM 10 MG TAB PO SCH (20:10)
[2018-12-26 05:55] LABS: PLATELET COUNT 131 10^3/uL (150-400)
[2018-12-26] MEDS ORDERED: FAMOTIDINE 20 MG TAB PO ONE (06:00)
[2018-12-26] MEDS ORDERED: DIAZEPAM 5 MG TAB PO ONE (06:00)
[2018-12-26] MEDS ORDERED: NS 1,000 ML IV ONE (06:00)
[2018-12-26] MEDS ORDERED: diphenhydrAMINE 25 MG CAP PO ONE (06:00)
[2018-12-26 06:13] LABS: INR 1.29 (0.83-1.16); PROTIME(PATIENT) 16.3 SEC (12.0-15.0)
[2018-12-26] MEDS: INSULIN LISPRO 100 UNIT/ML SC SCH ×3 (07:45→17:18)
[2018-12-26] MEDS: ASPIRIN 81 MG CHEWABLE TAB PO SCH (07:47)
--- NOTE | 2018-12-26 08:15 | PDPROPOC ---
Sedation Plan of Care Sedation Plan of Care: vital signs stable, mental status noted, patient educated of risks, benefits, alternatives, patient can tolerate sedation ASA Classification: ASA 2 Planned drugs: fentanyl, midazolam Mallampati Score: Class 2 Mallampati Reference Image: Patient passed 3-3-2 rule?: Yes
--- NOTE | 2018-12-26 08:15 | PDHPUP ---
History & Physical Update H&P update statement: This history and physical update is based on an assessment of the patient which was completed after admission or registration (within 24 hours), but prior to the surgery/procedure. Mr. Arellano is a pleasant 58 year old with Cardiomyopathy with severe valvular disease. Plan for Left and Right Heart cath today. Risks and benefits reviewed in detail. Questions answered. Pt is agreeable to pursue. H&P update: H&P reviewed & patient examined, no change in patient's condition since H&P completed
[2018-12-26] MEDS ORDERED: LIDOCAINE 1% 300 MG/30 ML SDV ONE (08:27)
[2018-12-26] MEDS ORDERED: MIDAZOLAM 2 MG/2 ML VIAL ONE (08:28)
[2018-12-26] MEDS ORDERED: IOPAMIDOL (ISOVUE-370) 150 ML BTL IV ONE ×2 (08:28→09:44)
[2018-12-26] MEDS ORDERED: fentaNYL 100 MCG/2 ML INJ ONE (08:28)
[2018-12-26] MEDS: TIOTROPIUM INHALER 18 MCG/DOSE 5 DOSE/MDI IH SCH (08:33)
[2018-12-26] MEDS ORDERED: ATROPINE SULFATE 1 MG/10 ML SYR IVP PRN (09:52)
--- NOTE | 2018-12-26 11:32 | CPIP ---
[f rep st] INVASIVE CARDIAC PROCEDURE DATE OF PROCEDURE: 12/26/2018 INDICATION FOR PROCEDURE: Cardiomyopathy with LVEF of approximately 20% on echocardiogram with sever e valvular regurgitation. Left and right heart catheterization have been requested to assess coronar y anatomy, as well as volume status in the setting of aggressive diuresis over the last several days coupled with need for further interventions, including possible BiV ICD. PROCEDURES PERFORMED: 1. Left heart catheterization. 2. Right heart catheterization. 3. Right common femoral artery angiography. 4. Angio-Seal deployment to the right common femoral artery. DESCRIPTION OF PROCEDURE: After informed consent was obtained for left and right heart catheterizati on, as well as for possible percutaneous coronary intervention, the patient was brought to the [facility] catheterization lab where he was prepped and draped in sterile fashion. Using 1% lidocaine, the [facility] groin was anesthetized. Using the micropuncture and modified Seldinger technique, a 6-Upper Sorbian cat heter was placed into the right common femoral artery without complications. A 7-Upper Sorbian sheath was p laced into the right common femoral vein without complications. Lincoln-Alba catheter was used to obtain pulmonary artery wedge pressure. Lincoln-Alba catheter was placed into the pulmonary artery. Wedge pressure was obtained. After obtaining wedge pressure, catheter w as pulled back into the pulmonary artery position. Pulmonary artery pressure was obtained. Oxygen s aturation was obtained. Catheter was then pulled back into the right ventricle. RV pressure was obt ained. RV saturation was also obtained. Catheter was then pulled back into the right atrium. Right atrial pressure was obtained. Right atrial oxygen saturation was obtained. Please note, arterial o xygen was also obtained at the same time as right heart catheterization. After completion of right heart catheterization, Lincoln-Alba catheter balloon was down, and catheter wa s removed without incident. Attention then was turned to left coronary anatomy. JL4 catheter was used to cannulate the left main and take images of the left coronary anatomy in multiple projections. JL4 catheter was exchanged ov er a guidewire for a JR4 catheter. JR4 catheter was used to cannulate the right coronary artery. JR 4 catheter was exchanged over guidewire for an angled pigtail catheter. Angled pigtail catheter was used to cross the aortic valve. LVEDP was assessed. The left ventriculogram was performed. Aortic valve gradient was assessed on pullback. Angled pigtail catheter was removed over guidewire. Right common femoral artery angiography was obtained, demonstrating appropriate placement of the sheath at the mid femoral head. FINDINGS: HEMODYNAMICS: Pulmonary capillary wedge pressure of 17. Pulmonary artery pressure of 41/ 20 with a mean of 29. RV pressure 44/7 with an RV end-diastolic pressure of 11 mmHg. Right atrial p ressure 7 mmHg. Cardiac output 3.04 L/minute. Cardiac index 1.84 L/minute per sq m. LVEDP 24 mmHg. Aortic valve gradient approximately 5 mmHg. CORONARY ANATOMY: Left main normal size and caliber, bifurcates into left anterior descending and le ft circumflex coronary artery. No evidence of coronary disease within the left main. Left anterior descending demonstrates mild luminal irregularity in the proximal segment at the bifurc ation of the first diagonal branch. There are mild luminal irregularities in the proximal portion of the first diagonal branch. The remainder of the vessel is free of coronary artery disease. Left ci rcumflex vessel is a codominant vessel with 2 moderate-sized obtuse marginal branches. There is no e vidence of coronary disease within the circumflex vessel. The right coronary artery is codominant. There is no evidence of coronary disease within the right c oronary artery. LVEF 10% to 15%. LVEDP 24 mmHg. CONCLUSION: 1. Nonischemic cardiomyopathy with left ventricular ejection fraction of 10% to 15% with left ventri cular end-diastolic pressure of 24 mmHg. 2. No evidence of flow-limiting coronary artery disease. /[id number]/MODL
[2018-12-26] MEDS: POTASSIUM CL 20 MEQ/15 ML UDCUP PO SCH (12:03)
[2018-12-26] MEDS: FUROSEMIDE 40 MG/4 ML VIAL IVP SCH (12:03)
[2018-12-26] MEDS: CARVEDILOL 25 MG TAB PO SCH (12:03)
[2018-12-26] MEDS: SPIRONOLACTONE 25 MG TAB PO SCH (12:04)
[2018-12-26] MEDS: ENOXAPARIN 40 MG/0.4 ML SYR SC SCH (12:23)
--- NOTE | 2018-12-26 13:01 | SOAPPROG ---
[place] Progress Note Assessment/Plan: Assessment: 58 y/o man overall poor historian. History of reportedly non-ischemic CHF and LBBB for at least two years with previous LVEF 32% with moderate AI and MR. He says he has never had a cardiac cath. Has been feeling bad for a year with increasing LOJA and fatigue. Admitted and echo now with LVEF 15%, mild LVH, severe AI/MR/TR, estimated PAS 55mmHg and LVEDD 6.6cm. He reports he has not stopped his CHF meds at all and not ETOH in over a year. He is feeling much better after several days of IV diuretics. ACEI stopped with plan to start Entresto tomorrow. Cath today showed normal coronaries and relatively compensated PCWP with low CO/CI. 1)stop IV lasix 2)stop PO KCL 3)decrease Coreg to 12.5mg PO BID 4)tomorrow AM start Entresto 24/26mg PO BID 5)run a little on wet side to avoid hypotension with Entresto but probably place on Lasix 20mg PO qam. 6)hopefully in EP lab schedule allows BIVAICD Saturday or Saturday. If cannot schedule earlier next week and continues to get hemodynamically more stable, could do BIVAICD as outpt in next 7-10 days. 7)will see Saturday AM. 12/26/18 12:58 Subjective: sleepy s/p cardiac cath. Denies CP, rest shortness of breath or PND. Objective: Vital Signs Temp Pulse Resp BP Pulse Ox 36.6 C 83 14 102/67 97 12/26/18 11:16 12/26/18 11:16 12/26/18 11:16 12/26/18 11:16 12/26/18 11:16 Laboratory Results 12/26/18 05:25 12/26/18 05:25 12/25/18 12/26/18 12/27/18 05:59 05:59 05:59 Intake Total 200 900 Output Total 2575 1210 650 Balance -2375 -310 -650 PT 16.3 SEC (12.0-15.0) H 12/26/18 05:25 INR 1.29 (0.83-1.16) H 12/26/18 05:25 Physical Exam - Physical Exam General Appearance: thin EENT: PERRL/EOMI Neck: non-tender Respiratory: chest non-tender Cardiac/Chest: regular rate, rhythm, gallop, systolic murmur, No JVD Peripheral Pulses: 2+: carotid (R), carotid (L), femoral (R), femoral (L), dorsalis-pedis (R), dorsalis-pedis (L) Abdomen: non-tender, No guarding, No rebound Skin: warm/dry Extremities: No pedal edema Neuro/Psych: alert ICD10 Worksheet Patient Problems: Problems Problem Status Onset CHF (congestive heart failure) Acute Acute exacerbation of congestive heart failure Acute COPD (chronic obstructive pulmonary disease) Acute Shortness of breath Acute Tachycardia Acute
--- NOTE | 2018-12-26 14:27 | HOSPPROG ---
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 1. Acute on chronic systolic heart failure: heart cath today with LVEF of 10%. no flow limiting disease. - stop lasix for now - decrease coreg to 12.5 bid - Likely biventricular AICD placement early next week. - start entresto tomorrow -cardiology following 2. Severe valvular heart disease: Related to significant chamber dilation from HF. MR, TR, AI that have worsened since 08/2018. - Cardiology discussing with Dr Guardado 3. COPD: No flare. Continue home meds. 4. Diabetes: New diagnosis with A1c 7.4% - Continue SSI 5. Elevated LFTs, significantly elevated alk phos: GGT elevated, likely c/w congestive hepatopathy. Monitor. 6. CKD: At/better than baseline 7. Indeterminate troponin: Demand in setting of #1. VTE ppx: LMWH Code: full Diet: cardiac Dispo: Remain inpatient medical titration of CHF, placement of bivaicd. Subjective: tired but feels better. no pain or complaints. Objective: Vital Signs Temp Pulse Resp BP Pulse Ox 36.6 C 83 14 102/67 97 12/26/18 11:16 12/26/18 11:16 12/26/18 11:16 12/26/18 11:16 12/26/18 11:16 Laboratory Results 12/26/18 05:25 12/26/18 05:25 12/25/18 12/26/18 12/27/18 05:59 05:59 05:59 Intake Total 200 900 Output Total 2575 1210 1400 Balance -2375 -310 -1400 PT 16.3 SEC (12.0-15.0) H 12/26/18 05:25 INR 1.29 (0.83-1.16) H 12/26/18 05:25 - Physical Exam Constitutional: no apparent distress, appears nourished, not in pain Eyes: PERRL, anicteric sclera, EOMI Ears, Nose, Mouth, Throat: moist mucous membranes, hearing normal, ears appear normal, no oral mucosal ulcers Cardiovascular: regular rate and rhythym, no murmur, rub, or gallop Respiratory: no respiratory distress, no rales or rhonchi, clear to auscultation Gastrointestinal: normoactive bowel sounds, soft, non-tender abdomen, no palpable masses Genitourinary: no bladder fullness, no bladder tenderness, no renal bruits Skin: no rashes or abrasions, no fluctuance, no induration Musculoskeletal: full muscle strength, no muscle tenderness, normal joint ROM Neurologic: AAOx3, sensation intact bilaterally Psychiatric: interacting appropriately, not anxious, not encephalopathic, thought process linear Lymph, Heme, Immunologic: no cervical LAD, no supraclavicular LAD ICD10 Worksheet Patient Problems: Problems Problem Status Onset CHF (congestive heart failure) Acute Acute exacerbation of congestive heart failure Acute COPD (chronic obstructive pulmonary disease) Acute Shortness of breath Acute Tachycardia Acute
[2018-12-26] MEDS ORDERED: SODIUM CL NASAL 45 ML BTL EACHNARE PRN (16:14)
[2018-12-26] MEDS: CARVEDILOL 6.25 MG TAB PO SCH (17:24)
[2018-12-26] MEDS: ATORVASTATIN CALCIUM 10 MG TAB PO SCH (21:40)
[2018-12-27] MEDS: INSULIN LISPRO 100 UNIT/ML SC SCH ×4 (07:57→19:12)
[2018-12-27] MEDS: SPIRONOLACTONE 25 MG TAB PO SCH (08:10)
[2018-12-27] MEDS: CARVEDILOL 6.25 MG TAB PO SCH ×2 (08:10→18:36)
[2018-12-27] MEDS: ASPIRIN 81 MG CHEWABLE TAB PO SCH (08:10)
[2018-12-27] MEDS: TIOTROPIUM INHALER 18 MCG/DOSE 5 DOSE/MDI IH SCH (08:20)
--- NOTE | 2018-12-27 08:47 | SOAPPROG ---
[facility] Progress Note Assessment/Plan: Assessment: 58 y/o man overall poor historian. History of reportedly non-ischemic CHF and LBBB for at least two years with previous LVEF 32% with moderate AI and MR. He says he has never had a cardiac cath. Has been feeling bad for a year with increasing LOJA and fatigue. Admitted and echo now with LVEF 15%, mild LVH, severe AI/MR/TR, estimated PAS 55mmHg and LVEDD 6.6cm. He reports he has not stopped his CHF meds at all and not ETOH in over a year. He is feeling much better after several days of IV diuretics. ACEI stopped with plan to start Entresto tomorrow. Cath today showed normal coronaries and relatively compensated PCWP with low CO/CI. PLAN: 1)start Entresto 24/26mg PO BID 2)start Lasix 20mg PO qam. 3)okay with SBP > 80 mmHg if asymptomatic 4)PT consult and ambulate with assistance. 5)tentatively scheduled for BIAICD with Dr. Corky Escalante Saturday 11AM. 6)qam ([facility]). 12/27/18 08:44 Subjective: he is weak and LOJA to his bathroom. Denies CP, syncope, PND, groin cath site pain or edema. He feels much better than five days ago when admitted. Objective: Vital Signs Temp Pulse Resp BP Pulse Ox 37.0 C 84 20 111/83 H 98 12/27/18 04:00 12/27/18 07:47 12/27/18 07:47 12/27/18 07:47 12/27/18 07:47 Laboratory Results 12/26/18 05:25 12/27/18 04:05 12/26/18 12/27/18 12/28/18 05:59 05:59 05:59 Intake Total 900 945 Output Total 1210 1775 Balance -310 -830 PT 16.3 SEC (12.0-15.0) H 12/26/18 05:25 INR 1.29 (0.83-1.16) H 12/26/18 05:25 Physical Exam - Physical Exam General Appearance: alert, thin EENT: PERRL/EOMI Neck: non-tender Respiratory: lungs clear Cardiac/Chest: regular rate, rhythm, gallop, systolic murmur, No JVD Peripheral Pulses: 2+: carotid (R), carotid (L), femoral (R), femoral (L), dorsalis-pedis (R), dorsalis-pedis (L) Abdomen: non-tender, No guarding, No rebound, No ascites Skin: warm/dry Extremities: No pedal edema Neuro/Psych: alert ICD10 Worksheet Patient Problems: Problems Problem Status Onset CHF (congestive heart failure) Acute Acute exacerbation of congestive heart failure Acute COPD (chronic obstructive pulmonary disease) Acute Shortness of breath Acute Tachycardia Acute
[2018-12-27] MEDS: FUROSEMIDE 20 MG TAB PO SCH (09:30)
[2018-12-27] MEDS: ENOXAPARIN 40 MG/0.4 ML SYR SC SCH (09:30)
[2018-12-27] MEDS: SACUBITRIL/VALSARTAN 24/26MG 1 EA TAB PO SCH ×2 (09:31→21:55)
--- NOTE | 2018-12-27 14:25 | HOSPPROG ---
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 1. Acute on chronic systolic heart failure: heart cath today with LVEF of 10%. no flow limiting disease. - stop lasix for now - cont coreg to 12.5 bid - Likely biventricular AICD placement early next week. - start entresto -cardiology following 2. Severe valvular heart disease: Related to significant chamber dilation from HF. MR, TR, AI that have worsened since 08/2018. - Cardiology discussing with Dr Guardado 3. COPD: No flare. Continue home meds. 4. Diabetes: New diagnosis with A1c 7.4% - Continue SSI 5. Elevated LFTs, significantly elevated alk phos: GGT elevated, likely c/w congestive hepatopathy. Monitor. 6. CKD: At/better than baseline 7. Indeterminate troponin: Demand in setting of #1. VTE ppx: LMWH Code: full Diet: cardiac Dispo: Remain inpatient medical titration of CHF, placement of bivaicd. Subjective: tired but feeling better than yesterday. minimal sob, just fatigued Objective: Vital Signs Temp Pulse Resp BP Pulse Ox 37.0 C 82 20 96/62 L 100 12/27/18 04:00 12/27/18 11:44 12/27/18 11:44 12/27/18 11:44 12/27/18 11:44 Laboratory Results 12/26/18 05:25 12/27/18 04:05 12/26/18 12/27/18 12/28/18 05:59 05:59 05:59 Intake Total 900 945 350 Output Total 1210 1775 Balance -310 -830 350 PT 16.3 SEC (12.0-15.0) H 12/26/18 05:25 INR 1.29 (0.83-1.16) H 12/26/18 05:25 - Physical Exam Constitutional: no apparent distress, appears nourished, not in pain Eyes: PERRL, anicteric sclera, EOMI Ears, Nose, Mouth, Throat: moist mucous membranes, hearing normal, ears appear normal, no oral mucosal ulcers Cardiovascular: regular rate and rhythym, no murmur, rub, or gallop Respiratory: no respiratory distress, no rales or rhonchi, clear to auscultation Gastrointestinal: normoactive bowel sounds, soft, non-tender abdomen, no palpable masses Genitourinary: no bladder fullness, no bladder tenderness, no renal bruits Skin: no rashes or abrasions, no fluctuance, no induration Musculoskeletal: full muscle strength, no muscle tenderness, normal joint ROM Neurologic: AAOx3, sensation intact bilaterally Psychiatric: interacting appropriately, not anxious, not encephalopathic, thought process linear Lymph, Heme, Immunologic: no cervical LAD, no supraclavicular LAD ICD10 Worksheet Patient Problems: Problems Problem Status Onset CHF (congestive heart failure) Acute Acute exacerbation of congestive heart failure Acute COPD (chronic obstructive pulmonary disease) Acute Shortness of breath Acute Tachycardia Acute
[2018-12-27] MEDS: LIDOCAINE 4%/MENTHOL 1% PATCH TD SCH (14:52)
--- NOTE | 2018-12-27 16:29 | ASMTCMCOM ---
CM Note CM Note Notes: Discussed pt in rounds. Pt lives independently with roommate, admitted for CHF exacerbation and valvular disease. Pt to have pacer placed on Saturday. Therapies are recommending SNF vs HHC. No referrals have been sent yet. CM to follow. D/C Plan: HHC v SNF Date Signed: 12/27/2018 04:28 PM Electronically Signed By:Anahi Swann
[2018-12-27] MEDS: ATORVASTATIN CALCIUM 10 MG TAB PO SCH (21:55)
[2018-12-27] MEDS: PATCH REMOVAL 1 EA PATCH TD SCH (21:55)
[2018-12-28] MEDS: TIOTROPIUM INHALER 18 MCG/DOSE 5 DOSE/MDI IH SCH (08:50)
[2018-12-28] MEDS: INSULIN LISPRO 100 UNIT/ML SC SCH ×3 (09:11→18:21)
--- NOTE | 2018-12-28 09:21 | SOAPPROG ---
TAMMY Progress Note Assessment/Plan: Assessment: 58-year-old male with a history of a nonischemic dilated cardiomyopathy associated with a left bundle branch block who, in the past, has declined therapy with a MIS MANAGER D. He is admitted now with worsening LV dysfunction associated with progressive valvular heart disease currently with an ejection fraction of about 15% associated with severe mitral, tricuspid and aortic regurgitation. At the time of admission he was [employer] functional class 4 now having improved to class 2/3 with diuretic therapy. Cardiac catheterization done 2 days ago did not demonstrate any obstructive disease. At that time, his wedge was 17 with an end-diastolic pressure of 24 mmHg. By exam he appears to be well compensated. His hemodynamics today are little soft with systolic pressures in the 80s following the recent transition from Florentin inhibitor therapy over to Entresto. He has not experienced any arrhythmia. Plan: 1. I have written to discontinue his Lasix and to reduce his spironolactone down to 12.5 mg daily. 2. I will plan to continue with current doses of Entresto and Coreg. 3. There are plans for MIS MANAGER D placement on Saturday. 4. Continue with plans for ambulation on the covarrubias with assistance and physical therapy. 5. Daily electrolytes. 6. We will follow along with you. 12/28/18 09:21 Subjective: He states that overall he feels better since he was initially admitted. He continues to complain of weakness, morning lightheadedness and exertional dyspnea. He has no orthopnea or PND. He has not had any fever, chills or sweats. He has been transitioned from Florentin inhibitor therapy over to Entresto. His blood pressure this morning was noted to be in the mid 80s systolic. Objective: Vital Signs Temp Pulse Resp BP Pulse Ox 36.6 C 81 16 81/57 L 99 12/28/18 07:25 12/28/18 08:52 12/28/18 08:50 12/28/18 08:52 12/28/18 08:52 Laboratory Results 12/26/18 05:25 12/28/18 03:30 12/27/18 12/28/18 12/29/18 05:59 05:59 05:59 Intake Total 945 1125 Output Total 1775 300 Balance -830 825 PT 16.3 SEC (12.0-15.0) H 12/26/18 05:25 INR 1.29 (0.83-1.16) H 12/26/18 05:25 Physical Exam - Physical Exam General Appearance: no apparent distress, thin, other (Chronically ill) Neck: non-tender, full range of motion Respiratory: chest non-tender, lungs clear, normal breath sounds, No respiratory distress, No accessory muscle use, No decreased breath sounds Cardiac/Chest: regular rate, rhythm, systolic murmur (1/6 holosystolic murmur at the apex), other (Positive 3rd heart sound), No edema, No gallop, No JVD Peripheral Pulses: 1+: carotid (R), carotid (L) Abdomen: normal bowel sounds, non-tender, soft Male Genitalia: deferred Rectal: deferred Neuro/Psych: oriented x 3 ICD10 Worksheet Patient Problems: Problems Problem Status Onset Acute exacerbation of congestive heart failure Acute Shortness of breath Acute COPD (chronic obstructive pulmonary disease) Acute Tachycardia Acute CHF (congestive heart failure) Acute
[2018-12-28] MEDS: CARVEDILOL 6.25 MG TAB PO SCH ×2 (09:48→18:14)
[2018-12-28] MEDS: LIDOCAINE 4%/MENTHOL 1% PATCH TD SCH (09:48)
[2018-12-28] MEDS: ENOXAPARIN 40 MG/0.4 ML SYR SC SCH (09:48)
[2018-12-28] MEDS: ASPIRIN 81 MG CHEWABLE TAB PO SCH (09:49)
[2018-12-28] MEDS: SACUBITRIL/VALSARTAN 24/26MG 1 EA TAB PO SCH ×2 (09:49→21:09)
[2018-12-28] MEDS: FUROSEMIDE 20 MG TAB PO SCH (10:20)
[2018-12-28] MEDS: SPIRONOLACTONE 25 MG TAB PO SCH (10:21)
--- NOTE | 2018-12-28 14:58 | HOSPPROG ---
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 1. Acute on chronic systolic heart failure: heart cath today with LVEF of 10%. no flow limiting disease. - stop lasix for now - cont coreg to 12.5 bid - Likely biventricular AICD placement early next week. - start entresto -cardiology following -reduce aldactone to 12.5 2. Severe valvular heart disease: Related to significant chamber dilation from HF. MR, TR, AI that have worsened since 08/2018. - Cardiology discussing with Dr Guardado 3. COPD: No flare. Continue home meds. 4. Diabetes: New diagnosis with A1c 7.4% - Continue SSI 5. Elevated LFTs, significantly elevated alk phos: GGT elevated, likely c/w congestive hepatopathy. Monitor. 6. CKD: At/better than baseline 7. Indeterminate troponin: Demand in setting of #1. VTE ppx: LMWH Code: full Diet: cardiac Dispo: Remain inpatient medical titration of CHF, placement of bivaicd. Subjective: no complaints. Objective: Vital Signs Temp Pulse Resp BP Pulse Ox 36.4 C 82 20 85/59 L 90 L 12/28/18 11:04 12/28/18 11:04 12/28/18 11:04 12/28/18 11:04 12/28/18 11:04 Laboratory Results 12/26/18 05:25 12/28/18 03:30 12/27/18 12/28/18 12/29/18 05:59 05:59 05:59 Intake Total 945 1125 Output Total 1775 300 Balance -830 825 PT 16.3 SEC (12.0-15.0) H 12/26/18 05:25 INR 1.29 (0.83-1.16) H 12/26/18 05:25 - Physical Exam Constitutional: no apparent distress, appears nourished, not in pain Eyes: PERRL, anicteric sclera, EOMI Ears, Nose, Mouth, Throat: moist mucous membranes, hearing normal, ears appear normal, no oral mucosal ulcers Cardiovascular: regular rate and rhythym, no murmur, rub, or gallop Respiratory: no respiratory distress, no rales or rhonchi, clear to auscultation Gastrointestinal: normoactive bowel sounds, soft, non-tender abdomen, no palpable masses Genitourinary: no bladder fullness, no bladder tenderness, no renal bruits Skin: no rashes or abrasions, no fluctuance, no induration Musculoskeletal: full muscle strength, no muscle tenderness, normal joint ROM Neurologic: AAOx3, sensation intact bilaterally Psychiatric: interacting appropriately, not anxious, not encephalopathic, thought process linear Lymph, Heme, Immunologic: no cervical LAD, no supraclavicular LAD ICD10 Worksheet Patient Problems: Problems Problem Status Onset CHF (congestive heart failure) Acute Acute exacerbation of congestive heart failure Acute COPD (chronic obstructive pulmonary disease) Acute Shortness of breath Acute Tachycardia Acute
[2018-12-28] MEDS: ATORVASTATIN CALCIUM 10 MG TAB PO SCH (21:09)
[2018-12-28] MEDS: PATCH REMOVAL 1 EA PATCH TD SCH (21:14)
[2018-12-29] MEDS: CARVEDILOL 6.25 MG TAB PO SCH ×2 (08:24→18:28)
[2018-12-29] MEDS: INSULIN LISPRO 100 UNIT/ML SC SCH ×3 (08:25→18:28)
[2018-12-29] MEDS: TIOTROPIUM INHALER 18 MCG/DOSE 5 DOSE/MDI IH SCH (09:06)
[2018-12-29] MEDS: ENOXAPARIN 40 MG/0.4 ML SYR SC SCH (09:44)
[2018-12-29] MEDS: LIDOCAINE 4%/MENTHOL 1% PATCH TD SCH (09:44)
[2018-12-29] MEDS: ASPIRIN 81 MG CHEWABLE TAB PO SCH (09:45)
[2018-12-29] MEDS: SPIRONOLACTONE 25 MG TAB PO SCH (09:53)
[2018-12-29] MEDS: SACUBITRIL/VALSARTAN 24/26MG 1 EA TAB PO SCH ×2 (09:53→20:15)
--- NOTE | 2018-12-29 12:21 | SOAPPROG ---
SOAP Progress Note Assessment/Plan: Assessment: 58 y/o man overall poor historian. History of reportedly non-ischemic CHF and LBBB for at least two years with previous LVEF 32% with moderate AI and MR. He says he has never had a cardiac cath. Has been feeling bad for a year with increasing LOJA and fatigue. Admitted and echo now with LVEF 15%, mild LVH, severe AI/MR/TR, estimated PAS 55mmHg and LVEDD 6.6cm. He reports he has not stopped his CHF meds at all and not ETOH in over a year. He is feeling much better after several days of IV diuretics. ACEI stopped with plan to start Entresto tomorrow. Cath this hospitalization showed normal coronaries and relatively compensated PCWP with low CO/CI. EP lab scheduled cannot do BIVAICD until Saturday with Dr. Jace Vanegas. Pt slowly progressing. PLAN: 1)no change in current meds. 2)hold CHF meds for SBP < 80 and symptoms. 3)BIVAICD Saturday with Dr. Jace Vanegas. 4)maybe to SNF . 5)f/u CHF clinic[facility] one week after [facility] 12/29/18 12:17 Subjective: a little stronger. LOJA at 50-100ft and weak and fatigue. Denies CP, syncope, fevers or PND. Objective: Vital Signs Temp Pulse Resp BP Pulse Ox 37.0 C 81 18 95/66 L 96 12/29/18 11:56 12/29/18 11:56 12/29/18 11:56 12/29/18 11:56 12/29/18 11:56 Laboratory Results 12/26/18 05:25 12/29/18 05:55 12/28/18 12/29/18 12/30/18 05:59 05:59 05:59 Intake Total 1125 1600 250 Output Total 300 Balance 825 1600 250 PT 16.3 SEC (12.0-15.0) H 12/26/18 05:25 INR 1.29 (0.83-1.16) H 12/26/18 05:25 Physical Exam - Physical Exam General Appearance: alert, thin EENT: normal ENT inspection Neck: non-tender Respiratory: lungs clear Cardiac/Chest: regular rate, rhythm, gallop, systolic murmur, No JVD Peripheral Pulses: 2+: carotid (R), carotid (L), femoral (R), femoral (L), dorsalis-pedis (R), dorsalis-pedis (L) Abdomen: non-tender, No guarding, No rebound, No ascites Skin: warm/dry Extremities: No pedal edema Neuro/Psych: alert ICD10 Worksheet Patient Problems: Problems Problem Status Onset CHF (congestive heart failure) Acute Acute exacerbation of congestive heart failure Acute COPD (chronic obstructive pulmonary disease) Acute Shortness of breath Acute Tachycardia Acute
--- NOTE | 2018-12-29 16:22 | ASMTCMCOM ---
CM Note CM Note Notes: CM met w/ pt for dispo planning. PT is recommending HC. Pt is agreeable to using HC services through [facility]. Pts PCP is Dr. Shepard out of [facility] [place] [facility]. Pts address is [address] [place] [address]. CM confirmed pts phone number. CM to follow. Plan: [facility]; PT, RN Date Signed: 12/29/2018 04:21 PM Electronically Signed By:JOSIAH Killian
--- NOTE | 2018-12-29 17:21 | HOSPPROG ---
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 1. Acute on chronic systolic heart failure: heart cath today with LVEF of 10%. no flow limiting disease. - stop lasix for now - cont coreg to 12.5 bid - Likely biventricular AICD placement Saturday with Dr. Vanegas - start entresto -cardiology following -reduce aldactone to 12.5 -hold CHF meds for systolic under 80 2. Severe valvular heart disease: Related to significant chamber dilation from HF. MR, TR, AI that have worsened since 08/2018. - Cardiology discussing with Dr Guardado 3. COPD: No flare. Continue home meds. 4. Diabetes: New diagnosis with A1c 7.4% - Continue SSI 5. Elevated LFTs, significantly elevated alk phos: GGT elevated, likely c/w congestive hepatopathy. Monitor. 6. CKD: At/better than baseline 7. Indeterminate troponin: Demand in setting of #1. VTE ppx: LMWH Code: full Diet: cardiac Dispo: Remain inpatient medical titration of CHF, placement of bivaicd. Subjective: Tired but no complaints Objective: Vital Signs Temp Pulse Resp BP Pulse Ox 36.8 C 79 22 H 92/57 L 97 12/29/18 16:00 12/29/18 16:00 12/29/18 16:00 12/29/18 16:00 12/29/18 16:00 Laboratory Results 12/26/18 05:25 12/29/18 05:55 12/28/18 12/29/18 12/30/18 05:59 05:59 05:59 Intake Total 1125 1600 250 Output Total 300 Balance 825 1600 250 PT 16.3 SEC (12.0-15.0) H 12/26/18 05:25 INR 1.29 (0.83-1.16) H 12/26/18 05:25 - Physical Exam Constitutional: no apparent distress, appears nourished, not in pain Eyes: PERRL, anicteric sclera, EOMI Ears, Nose, Mouth, Throat: moist mucous membranes, hearing normal, ears appear normal, no oral mucosal ulcers Cardiovascular: regular rate and rhythym, no murmur, rub, or gallop Respiratory: no respiratory distress, no rales or rhonchi, clear to auscultation Gastrointestinal: normoactive bowel sounds, soft, non-tender abdomen, no palpable masses Genitourinary: no bladder fullness, no bladder tenderness, no renal bruits Skin: no rashes or abrasions, no fluctuance, no induration Musculoskeletal: full muscle strength, no muscle tenderness, normal joint ROM Neurologic: AAOx3, sensation intact bilaterally Psychiatric: interacting appropriately, not anxious, not encephalopathic, thought process linear Lymph, Heme, Immunologic: no cervical LAD, no supraclavicular LAD ICD10 Worksheet Patient Problems: Problems Problem Status Onset CHF (congestive heart failure) Acute Acute exacerbation of congestive heart failure Acute COPD (chronic obstructive pulmonary disease) Acute Shortness of breath Acute Tachycardia Acute
[2018-12-29] MEDS: ATORVASTATIN CALCIUM 10 MG TAB PO SCH (20:15)
[2018-12-29] MEDS: PATCH REMOVAL 1 EA PATCH TD SCH (20:19)
[2018-12-29] MEDS: HYDROCODONE/APAP 5/325 TAB PO PRN (20:23)
[2018-12-30 06:06] LABS: PLATELET COUNT 205 10^3/uL (150-400)
[2018-12-30] MEDS: ENOXAPARIN 40 MG/0.4 ML SYR SC SCH (07:56)
[2018-12-30] MEDS: LIDOCAINE 4%/MENTHOL 1% PATCH TD SCH (07:56)
[2018-12-30] MEDS: SACUBITRIL/VALSARTAN 24/26MG 1 EA TAB PO SCH ×2 (07:56→20:12)
[2018-12-30] MEDS: CARVEDILOL 6.25 MG TAB PO SCH ×2 (07:57→18:12)
[2018-12-30] MEDS: ASPIRIN 81 MG CHEWABLE TAB PO SCH (07:57)
[2018-12-30] MEDS: SPIRONOLACTONE 25 MG TAB PO SCH (07:57)
[2018-12-30] MEDS: INSULIN LISPRO 100 UNIT/ML SC SCH ×3 (08:11→17:55)
[2018-12-30] MEDS: TIOTROPIUM INHALER 18 MCG/DOSE 5 DOSE/MDI IH SCH (08:53)
--- NOTE | 2018-12-30 15:01 | PDCARPN ---
Cardiology Progress Note Chief Complaint: SCHF Assessment/Plan: Assessment: 58-year-old male with history that includes nonischemic cardiomyopathy 1st diagnosed in 2017, left bundle branch block, COPD, hypertension, hyperlipidemia , mitral regurgitation aortic insufficiency and renal insufficiency. Patient has been noted based on serial echocardiograms over last 2 years to have a EF of 30-35% (echocardiogram August of 2018). Patient admitted 12/22/18 for significant shortness of breath and increased peripheral edema. [place] [address], and now 5400. Echocardiogram done on 12/23/2018 moderately dilated LV with mild concentric LVH , severely reduced LV systolic function with EF of 15% with global hypokinesis, septal to apical hypokinesis, mildly dilated RV, LA severely dilated, RA severely dilated, severe MR, severe AR, severe TR, RVSP of 55 mm Hg, small pericardial effusion with no hemodynamic compromise. Noted on admission to have indeterminate troponin of 0.035, peaking at 0.044. Chest x-ray on admission showing CHF with mild pulmonary edema. Plan: #. Acute on chronic systolic heart failure: Improved on IV diuresis. Appears euvolemic and diuresis on hold except for Spironolactone Awaiting bi-V ICD #. Nonischemic cardiomyopathy: [facility] this admission with no CAD In past patient has declined Bi V AICD Now willing to have this on Carvedilol and Entresto #. Valvular heart disease: Echo showing severe MR, severe TR, severe AR will follow with serial echoes to see if with CHF treatment this aimproves #. Hypertension: has been hypotensive but BP appears stable currently #. Chronic kidney disease: Creatinine has been wnl #. Elevated liver function tests: hepatic congestion #. COPD: Resumed on home medication. Defer treatment to hospitalist Services. 12/30/18 14:55 12/30/18 15:01 Subjective: No cp, dyspnea, pnd/orthopnea. Reviewed/Discussed With: hospitalist (Dr. Borges) Objective: Vital Signs (8 Hrs) Temp Pulse Resp BP Pulse Ox 12/30/18 12:00 98.1 F 79 18 92/60 L 99 12/30/18 08:56 75 16 97 12/30/18 07:57 75 103/64 12/30/18 07:56 103/64 12/30/18 07:48 97.9 F 75 18 103/64 100 Intake/Output (24 Hrs) 12/29/18 12/30/18 12/31/18 05:59 05:59 05:59 Intake Total 1600 1440 Output Total 200 Balance 1600 1240 Intake: Oral (ml) 1600 1440 Output: Urine (ml) 200 Urinal 200 Other: Weight 56 kg Intake Quantity Yes Sufficient Number of Voids Toilet 6 Number of Stools Toilet 1 Result Diagrams: 12/30/18 05:40 12/30/18 05:40 EKG: SR LBBB Telemetry: SR - Physical Exam Constitutional: no apparent distress Eyes: anicteric sclera Cardiovascular: regular rate and rhythm, systolic murmur, diastolic murmur Respiratory: clear to auscultate bilat Gastrointestinal: normoactive bowel sounds Genitourinary: No noel in urethra Neurologic: AAOx3 Psychiatric: cooperative, interactive ICD10 Worksheet Patient Problems: Problems Problem Status Onset CHF (congestive heart failure) Acute Acute exacerbation of congestive heart failure Acute COPD (chronic obstructive pulmonary disease) Acute Shortness of breath Acute Tachycardia Acute
--- NOTE | 2018-12-30 15:06 | HOSPPROG ---
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 1. Acute on chronic systolic heart failure: heart cath today with LVEF of 10%. no flow limiting disease. - stop lasix for now - cont coreg to 12.5 bid - Likely biventricular AICD placement Saturday with Dr. Vanegas - start entresto -cardiology following -reduce aldactone to 12.5 -hold CHF meds for systolic under 80 2. Severe valvular heart disease: Related to significant chamber dilation from HF. MR, TR, AI that have worsened since 08/2018. -follow response to BiV pacer before CT surgery 3. COPD: No flare. Continue home meds. 4. Diabetes: New diagnosis with A1c 7.4% - Continue SSI 5. Elevated LFTs, significantly elevated alk phos: GGT elevated, likely c/w congestive hepatopathy. Monitor. 6. CKD: At/better than baseline 7. Indeterminate troponin: Demand in setting of #1. VTE ppx: LMWH Code: full Diet: cardiac Dispo: Remain inpatient medical titration of CHF, placement of bivaicd. Subjective: case d/w sharon chaudhary cardiology PA. feels well Objective: Vital Signs Temp Pulse Resp BP Pulse Ox 36.7 C 79 18 92/60 L 99 12/30/18 12:00 12/30/18 12:00 12/30/18 12:00 12/30/18 12:00 12/30/18 12:00 Laboratory Results 12/30/18 05:40 12/30/18 05:40 12/29/18 12/30/18 12/31/18 05:59 05:59 05:59 Intake Total 1600 1440 Output Total 200 Balance 1600 1240 PT 16.3 SEC (12.0-15.0) H 12/26/18 05:25 INR 1.29 (0.83-1.16) H 12/26/18 05:25 - Physical Exam Constitutional: no apparent distress, appears nourished Eyes: PERRL, anicteric sclera Ears, Nose, Mouth, Throat: moist mucous membranes, hearing normal Cardiovascular: regular rate and rhythym, systolic murmur, No edema Respiratory: no respiratory distress, no rales or rhonchi Gastrointestinal: normoactive bowel sounds, soft, non-tender abdomen Genitourinary: no bladder fullness Skin: warm, normal color Musculoskeletal: full muscle strength Neurologic: AAOx3 ICD10 Worksheet Patient Problems: Problems Problem Status Onset CHF (congestive heart failure) Acute Acute exacerbation of congestive heart failure Acute COPD (chronic obstructive pulmonary disease) Acute Shortness of breath Acute Tachycardia Acute
[2018-12-30] MEDS: ATORVASTATIN CALCIUM 10 MG TAB PO SCH (20:12)
[2018-12-30] MEDS: HYDROCODONE/APAP 5/325 TAB PO PRN (20:17)
[2018-12-30] MEDS: PATCH REMOVAL 1 EA PATCH TD SCH (20:18)
[2018-12-31 04:38] LABS: PLATELET COUNT 210 10^3/uL (150-400)
[2018-12-31 05:08] LABS: INR 1.3 (0.83-1.16); PROTIME(PATIENT) 16.4 SEC (12.0-15.0)
[2018-12-31] MEDS ORDERED: BACITRACIN IRRIGATION/NS 50,000 UNITS/1,000 ML BTL IRR ONE (06:00)
[2018-12-31] MEDS ORDERED: NS 1,000 ML IV ONE (06:00)
[2018-12-31] MEDS ORDERED: ceFAZolin 2 GM/DEXTROSE 100 ML IV ONE (06:00)
[2018-12-31] MEDS: INSULIN LISPRO 100 UNIT/ML SC SCH ×3 (08:19→18:52)
[2018-12-31] MEDS: ASPIRIN 81 MG CHEWABLE TAB PO SCH (08:34)
[2018-12-31] MEDS: SACUBITRIL/VALSARTAN 24/26MG 1 EA TAB PO SCH ×2 (08:34→20:56)
[2018-12-31] MEDS: CARVEDILOL 6.25 MG TAB PO SCH ×2 (08:34→18:44)
[2018-12-31] MEDS: SPIRONOLACTONE 25 MG TAB PO SCH (08:34)
[2018-12-31] MEDS: LIDOCAINE 4%/MENTHOL 1% PATCH TD SCH (08:34)
[2018-12-31] MEDS: TIOTROPIUM INHALER 18 MCG/DOSE 5 DOSE/MDI IH SCH (09:49)
--- NOTE | 2018-12-31 12:15 | PDHPUP ---
History & Physical Update H&P update statement: This history and physical update is based on an assessment of the patient which was completed after admission or registration (within 24 hours), but prior to the surgery/procedure. H&P update: H&P reviewed & patient examined, no change in patient's condition since H&P completed
[2018-12-31] MEDS ORDERED: BUPIVACAINE 0.5% 30 ML SDV ONE (13:08)
[2018-12-31] MEDS ORDERED: LIDOCAINE 1% 300 MG/30 ML SDV ONE (13:08)
[2018-12-31] MEDS ORDERED: IOPAMIDOL (ISOVUE-300) 100 ML BTL ONE ×2 (13:08→14:51)
[2018-12-31] MEDS ORDERED: LIDO/EPI 1% **for epidural** 30 ML SDV ONE (13:08)
[2018-12-31] MEDS ORDERED: LIDOCAINE 2% 100 MG/5 ML SYR ONE (13:14)
[2018-12-31] MEDS ORDERED: PROPOFOL/EMULSION 500 MG/50 ML BOTTLE IV ONE ×2 (13:14→16:00)
[2018-12-31] MEDS ORDERED: fentaNYL 100 MCG/2 ML INJ ONE (13:14)
[2018-12-31] MEDS ORDERED: PHENYLEPHRINE HCL 100 MCG/ML SYR ONE ×2 (13:32→14:38)
--- NOTE | 2018-12-31 13:48 | PDANEPAE ---
ANE History of Present Illness non-ischemic CM with an EF of 15% S/F BiV ICD ANE Past Medical History - Cardiovascular History Hx Hypertension: Yes Hx Chest Pain: Yes Hx CHF / Valvular Disease: Yes Cardiovascular History Comment: TR - Pulmonary History Hx Oxygen in Use at Home: No Hx Sleep Apnea: No Sleep Apnea Screening Result - Last Documented: Positive - Endocrine History Hx Diabetes: No - GI History Gastrointestinal History Comment: weight loss - Chronic Pain History Chronic Pain: No ANE Review of Systems Review of Systems: - Exercise capacity METS (RN): 2 METS ANE Patient History - Allergies Allergies/Adverse Reactions: No Known Allergies Allergy (Verified 12/22/18 16:21) - Home Medications Home Medications: Albuterol Sulfate [Proair Hfa] 1 - 2 puffs IH Q4-6PRN PRN 10/06/18 [Last Taken 12/22/18 08:00] Simvastatin [Zocor] 20 mg PO HS 10/06/18 [Last Taken 12/20/18 21:00] - NPO status NPO Since - Liquids (Date): 12/31/18 NPO Since - Liquids (Time): 00:00 NPO Since - Solids (Date): 12/31/18 NPO Since - Solids (Time): 00:00 - Smoking Hx Smoking Status: Former smoker - Alcohol Use Alcohol Use: Rarely ANE Labs/Vital Signs - Labs Result Diagrams: 12/31/18 04:20 12/31/18 04:20 - Vital Signs Blood Pressure: 97/57 Heart Rate: 73 Respiratory Rate: 18 O2 Sat (%): 98 Height: 172.72 cm Weight: 56.7 kg ANE Physical Exam - Airway Neck exam: decreased ROM Mallampati Score: Class 2 Mouth exam: normal dental/mouth exam - Pulmonary Pulmonary: no respiratory distress - Cardiovascular Cardiovascular: regular rate and rhythym (distant) ANE Anesthesia Plan Anesthesia Plan: GA with mask Total IV Anesthesia: Yes
[2018-12-31] MEDS ORDERED: PROPOFOL 200 MG/20 ML VIAL ONE ×2 (14:38→15:18)
[2018-12-31] MEDS ORDERED: MEPERIDINE 25 MG/0.5 ML AMP IVP PRN (16:27)
[2018-12-31] MEDS ORDERED: ALBUTEROL 3 ML DEYVIAL IH PRN (16:27)
[2018-12-31] MEDS ORDERED: LR 500 ML IV PRN (16:27)
[2018-12-31] MEDS ORDERED: ONDANSETRON 4 MG/2 ML VIAL IVP PRN (16:27)
[2018-12-31] MEDS ORDERED: DEXAMETHASONE 4 MG/ML VIAL IVP PRN (16:27)
[2018-12-31] MEDS ORDERED: NALOXONE HCL 0.4 MG/ML INJ IVP PRN (16:27)
[2018-12-31] MEDS ORDERED: fentaNYL 100 MCG/2 ML INJ IVP PRN (16:27)
--- NOTE | 2018-12-31 16:52 | POSTANESTH ---
Post Anesthetic Evaluation Cardiovascular Status: Similar to Pre-Op Cond, Tx Hyper/Hypo-tension ( hypotension) Respiratory Status: Similar to Pre-op Cond., Tx Decrease in SpO2 Level of Consciousness/Mental Status: Can Participate in Eval, Mildly Sleepy, Arousable Pain Control: Adequate, Prn Tx Ordered Nausea/Vomiting Control: Adequate, Prn Tx Ordered Complications Possibly Related to Anesthesia: None Noted
--- NOTE | 2018-12-31 17:22 | HOSPPROG ---
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 1. Acute on chronic systolic heart failure: heart cath today with LVEF of 10%. no flow limiting disease. - stop lasix for now - cont coreg to 12.5 bid - Likely biventricular AICD placement today - start entresto -cardiology following -reduce aldactone to 12.5 -hold CHF meds for systolic under 80 2. Severe valvular heart disease: Related to significant chamber dilation from HF. MR, TR, AI that have worsened since 08/2018. -follow response to BiV pacer before CT surgery 3. COPD: No flare. Continue home meds. 4. Diabetes: New diagnosis with A1c 7.4% - Continue SSI 5. Elevated LFTs, significantly elevated alk phos: GGT elevated, likely c/w congestive hepatopathy. Monitor. 6. CKD: At/better than baseline 7. Indeterminate troponin: Demand in setting of #1. VTE ppx: LMWH Code: full Diet: cardiac Dispo: Remain inpatient medical titration of CHF, placement of bivaicd. Subjective: case d/w sharon boudreaux Objective: Vital Signs Temp Pulse Resp BP Pulse Ox 36.5 C 73 18 97/57 L 98 12/31/18 07:39 12/31/18 13:48 12/31/18 13:48 12/31/18 13:48 12/31/18 13:48 Laboratory Results 12/31/18 04:20 12/31/18 04:20 12/30/18 12/31/18 01/01/19 05:59 05:59 05:59 Intake Total 1440 700 Output Total 200 570 Balance 1240 130 PT 16.4 SEC (12.0-15.0) H 12/31/18 04:20 INR 1.30 (0.83-1.16) H 12/31/18 04:20 - Physical Exam Constitutional: no apparent distress, appears nourished Eyes: PERRL, anicteric sclera Ears, Nose, Mouth, Throat: moist mucous membranes, hearing normal Cardiovascular: regular rate and rhythym, no murmur, rub, or gallop Respiratory: no respiratory distress Gastrointestinal: normoactive bowel sounds Genitourinary: No noel in urethra Skin: warm, normal color Musculoskeletal: full muscle strength ICD10 Worksheet Patient Problems: Problems Problem Status Onset CHF (congestive heart failure) Acute Acute exacerbation of congestive heart failure Acute COPD (chronic obstructive pulmonary disease) Acute Shortness of breath Acute Tachycardia Acute
--- NOTE | 2018-12-31 18:29 | CPIP ---
[f rep st] INVASIVE CARDIAC PROCEDURE DATE OF PROCEDURE: 12/31/2018 INDICATIONS: The patient is 58 years old. He has a history of nonischemic dilated cardiomyopathy, c urrently with [employer] functional Class III congestive heart failure. He has an el ectrocardiogram that indicates sinus rhythm with a wide QRS complex with a left bundle morphology. H is QRS duration is in excess of 150 msec. PROCEDURE: Implantation of a biventricular pacemaker defibrillator. TECHNIQUE: Following informed consent, after the administration of prophylactic antibiotics and in t he fasting state, the patient was brought to the cardiac catheterization laboratory. Anesthesia was provided by Dr. Corey Cross from the Anesthesia Department. The left chest was prepped and draped in usual sterile fashion. A venogram was performed, identifying a widely patent axillary subclavian system. 2% lidocaine was i nfiltrated in the skin below the left clavicle and using a #10 blade, a 4 cm incision was made. This incision was then carried down to the prepectoral fashion and the ICD pocket was fashioned. An anti biotic soaked sponge was then placed in the pocket. Using modified Seldinger technique and 3 separate sticks, access was gained to the axillary vein at t he level of the 1st rib and individual 0.035 J-wires were positioned. Using the first of these J-wir es, a 7-Portuguese sheath was placed. This allowed us to pass the right ventricular pacemaker defibrilla tor lead into the right ventricular apex. The lead was screwed into place, tested, and the sheath to rn away. The lead was then secured to the defibrillator pocket floor with 0 Ethibond. Using a secon d 0.035 J-wire, a 6-Portuguese sheath was placed. This allowed us to place the right atrial lead within the right atrial appendage. The lead was screwed into place and the sheath torn away. The lead was then tested with adequate capture and sensing. Using the remaining 0.035 J-wire, a 5-Portuguese sheath w as placed. This allowed us to position a long 0.035 J-wire in the right atrium. The Currie wide layne de was then brought to the field and passed over this wire into the right atrium. The wire and dilat or were then removed. An angled glide was then used to probe the region of the coronary sinus ostium . We were not able to access the ostium blindly. At this point, we brought an LCB catheter to the field. This was placed through the guide and passed into the right atrium. Using small puffs of contrast dye, we were able to visualize the coronary si nus ostium and pass a 0.021 J-wire with into the coronary sinus ostium. This allowed us to further a dvance the LCB catheter, and ultimately, the Currie guide catheter deep within the coronary sinus. A t this point, a Mailman wire was brought to the field. We removed the LCB catheter. We made attempts at accessing a vein that was on the high anterolateral wall; however, were unsuccess ful and ultimately ended up causing a small dissection flap in this region. Therefore, we picked a v ein that was in the mid lateral wall. We had difficulty wiring this vein; therefore, we brought a 90 degree sub selector to the field, which was passed through the guide catheter and we were able to ca nnulate this in this lateral vein. At this point in time, a Mailman wire was used to wire this vein. We brought the lead to the field. This was passed over the Mailman wire deep into this lateral vei n. The lead was tested with excellent capture and sensing. At this point, the Mailman wire was zach mumtaz and a stylet was placed in the lead. The inner guide catheter was then slid away, and subsequent ly, the outer guide catheter slid away. The coronary sinus lead was noted to be stable at this point . This lead was then secured to the defibrillator pocket floor with 0 Ethibond. The antibiotic-soak ed sponge was then removed from the pocket. The pocket was irrigated with antibiotic-containing solu tion. The device was then brought to the field and all leads were affixed to the header according to drum handler guidelines. The device and the redundant portions of all leads were then placed in the pocket. The pocket was then closed with 2 layers of interrupted suture using 2-0 and 3-0 Vicryl, an d finally gale for the skin. Steri-Strips and a dry dressing were applied. COMPLICATIONS: None DEVICE INFORMATION: The device is an Currie Quadra Assura MP, reference #[id number], serial #[id number]. The atrial lead is a [employer] Tendril SDX reference #2088TC, 46 cm in length, serial #[id number]. The right ventricular lead is a [employer] Durata, reference #7122Q, 52 cm in length, se rial #[id number]. Coronary sinus lead is a [employer] Quartet, reference #1458QL-[id number], serial #[id number]. In the atrium, capture was 0.5 V, 0.4 msec with sensed P waves of 3.3 mV and lead impedance of 473 oh ms. In the right ventricle, capture was 0.4 V, 0.5 msec with R-wave sensed in excess of 35 mV, and a n impedance of 608 ohms. In the left ventricle, sensed R-waves were 26.7 mV with capture threshold 0 .9 V, 0.5 milliseconds from the 2nd to 3rd position with a lead impedance 737 ohms. DISPOSITION: The patient will be recovered in the CVC and returned to his room. /[id number]/MODL
[2018-12-31] MEDS: ATORVASTATIN CALCIUM 10 MG TAB PO SCH (20:55)
[2018-12-31] MEDS: HYDROCODONE/APAP 5/325 TAB PO PRN (20:56)
[2018-12-31] MEDS: PATCH REMOVAL 1 EA PATCH TD SCH (21:00)
[2019-01-01 08:14] VITALS: BP 95/61
[2019-01-01] MEDS: ASPIRIN 81 MG CHEWABLE TAB PO SCH (08:45)
[2019-01-01] MEDS: SPIRONOLACTONE 25 MG TAB PO SCH (08:45)
[2019-01-01] MEDS: LIDOCAINE 4%/MENTHOL 1% PATCH TD SCH (08:46)
[2019-01-01] MEDS: SACUBITRIL/VALSARTAN 24/26MG 1 EA TAB PO SCH (08:47)
[2019-01-01] MEDS: INSULIN LISPRO 100 UNIT/ML SC SCH ×2 (08:48→13:57)
[2019-01-01] MEDS: CARVEDILOL 6.25 MG TAB PO SCH (08:50)
[2019-01-01] MEDS: TIOTROPIUM INHALER 18 MCG/DOSE 5 DOSE/MDI IH SCH (09:20)
--- NOTE | 2019-01-01 10:53 | PDCARPN ---
Cardiology Progress Note Chief Complaint: SCHF Assessment/Plan: Assessment: 58-year-old male with history that includes nonischemic cardiomyopathy 1st diagnosed in 2017, left bundle branch block, COPD, hypertension, hyperlipidemia , mitral regurgitation, aortic insufficiency and renal insufficiency. Patient has been noted based on serial echocardiograms over last 2 years to have a EF of 30-35% (echocardiogram August of 2018). Patient admitted 12/22/18 for significant shortness of breath and increased peripheral edema. [place] [address], and now 5400. Echocardiogram done on 12/23/2018 moderately dilated LV with mild concentric LVH , severely reduced LV systolic function with EF of 15% with global hypokinesis, septal to apical hypokinesis, mildly dilated RV, LA severely dilated, RA severely dilated, severe MR, severe AR, severe TR, RVSP of 55 mm Hg, small pericardial effusion with no hemodynamic compromise. Noted on admission to have indeterminate troponin of 0.035, peaking at 0.044. Chest x-ray on admission showing CHF with mild pulmonary edema. Plan: #. Acute on chronic systolic heart failure: Improved on IV diuresis. Appears euvolemic and diuresis on hold except for Spironolactone s/p bi-V ICD healing well from that #. Nonischemic cardiomyopathy: [facility] this admission with no CAD In past patient has declined Bi V AICD Now willing to have this on Carvedilol and Entresto #. Valvular heart disease: Echo showing severe MR, severe TR, severe AR will follow with serial echoes to see if with CHF treatment this improves #. Hypertension: has been hypotensive but BP appears stable currently #. Chronic kidney disease: Creatinine has been wnl #. Elevated liver function tests: hepatic congestion now improving #. COPD: Resumed on home medication. Defer treatment to hospitalist Services. OK to d/c from cardiac perspective. 01/01/19 10:53 Subjective: No cp/dyspnea, pnd/orthopnea. Pacer site with mild discomfort. Reviewed/Discussed With: hospitalist (Dr. Borges) Objective: Vital Signs (8 Hrs) Temp Pulse Resp BP Pulse Ox 01/01/19 08:50 88 95/61 L 01/01/19 08:47 95/61 L 01/01/19 08:12 97.9 F 84 30 H 95/61 L 99 01/01/19 04:00 97.7 F 77 16 93/57 L 97 Intake/Output (24 Hrs) 12/31/18 01/01/19 01/02/19 05:59 05:59 05:59 Intake Total 700 850 Output Total 570 650 Balance 130 200 Intake: Oral (ml) 700 850 Output: Urine (ml) 570 650 Urinal 570 650 Other: Weight 56.7 kg 57.7 kg Intake Quantity Yes Sufficient Number of Voids Urinal 1 3 Result Diagrams: 12/31/18 04:20 12/31/18 04:20 Telemetry: reviewed / V-paced - Physical Exam Constitutional: no apparent distress, cachectic Eyes: anicteric sclera Ears, Nose, Mouth, Throat: moist mucous membranes Cardiovascular: regular rate and rhythm, systolic murmur Respiratory: clear to auscultate bilat, no crackles Genitourinary: No noel in urethra Skin: no rashes, no abrasions, warm Neurologic: AAOx3 Psychiatric: cooperative, interactive ICD10 Worksheet Patient Problems: Problems Problem Status Onset Acute exacerbation of congestive heart failure Acute Shortness of breath Acute COPD (chronic obstructive pulmonary disease) Acute Tachycardia Acute CHF (congestive heart failure) Acute
--- NOTE | 2019-01-01 10:54 | HOSPPROG ---
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 1. Acute on chronic systolic heart failure: heart cath today with LVEF of 10%. no flow limiting disease. - stop lasix for now - cont coreg to 12.5 bid - s/p BiV pacer - start entresto -cardiology following -reduce aldactone to 12.5 2. Severe valvular heart disease: Related to significant chamber dilation from HF. MR, TR, AI that have worsened since 08/2018. -follow response to BiV pacer before CT surgery 3. COPD: No flare. Continue home meds. 4. Diabetes: New diagnosis with A1c 7.4% - Continue SSI 5. Elevated LFTs, significantly elevated alk phos: GGT elevated, likely c/w congestive hepatopathy. Monitor. 6. CKD: At/better than baseline 7. Indeterminate troponin: Demand in setting of #1. home today, pending cxr > 30 minutes on dc Subjective: s/p dual chamber pacer. case d/w sharon boudreaux, cardiology PA Objective: Vital Signs Temp Pulse Resp BP Pulse Ox 36.6 C 88 30 H 95/61 L 99 01/01/19 08:12 01/01/19 08:50 01/01/19 08:12 01/01/19 08:50 01/01/19 08:12 Laboratory Results 12/31/18 04:20 12/31/18 04:20 12/31/18 01/01/19 01/02/19 05:59 05:59 05:59 Intake Total 700 850 Output Total 570 650 Balance 130 200 PT 16.4 SEC (12.0-15.0) H 12/31/18 04:20 INR 1.30 (0.83-1.16) H 12/31/18 04:20 - Physical Exam Constitutional: no apparent distress, appears nourished Eyes: PERRL, anicteric sclera Ears, Nose, Mouth, Throat: moist mucous membranes, hearing normal Cardiovascular: regular rate and rhythym, no murmur, rub, or gallop Respiratory: no respiratory distress Gastrointestinal: normoactive bowel sounds, soft, non-tender abdomen Genitourinary: no bladder fullness, No noel in urethra Skin: warm Musculoskeletal: full muscle strength Neurologic: AAOx3 ICD10 Worksheet Patient Problems: Problems Problem Status Onset CHF (congestive heart failure) Acute Acute exacerbation of congestive heart failure Acute COPD (chronic obstructive pulmonary disease) Acute Shortness of breath Acute Tachycardia Acute
--- NOTE | 2019-01-01 11:36 | GDS ---
[f rep st] DISCHARGE SUMMARY DISCHARGE DIAGNOSES: 1. Advanced heart failure, status post biventricular pacer. 2. Nonischemic cardiomyopathy. 3. Chronic obstructive pulmonary disease. Please see admission History and Physical by Dr. Jorje Stoner. The patient presented with lower e xtremity edema and shortness of breath. He was seen by Cardiology while here, diuresed aggressively with a net loss about 7 kg. He had medication adjustment with reduction of carvedilol, discontinuati on of Lasix, reduction of spironolactone, and addition of Entresto. He had a biventricular pacer dennise beverly, which was uneventful. Chest x-ray is pending. He has rapid followup with Dr. Rod Piedra of [facility]. /[id number]/MODL
[2019-01-01] MEDS ORDERED: PNEUMOCOCCAL 0.5ML VACCINE VIAL (PNEUMOVAX 23) IM ONE (13:24)
--- NOTE | 2019-01-01 16:39 | PDIAF ---
- Diagnosis Diagnosis: CHF Code Status: Full Code - Medication Management Discharge Medications: electronically signed and located in the Home Medication List. - Orders Services needed: Home Care, Registered Nurse Home Care Face to Face: I certify that this patient was under my care and that I had the required [id number] encounter meeting the encounter requirements on the discharge day. My findings support the fact that the patient is homebound as defined in Home Care Face to Face Continued: CMS Chapter 7 Medicare Benefits Manual 30.1.1 , The condition of the patient is such that there exists a normal inability to leave home and consequently, leaving home would require a considerable and taxing effort. Isolation Type: None Additional Instructions: Left Arm Precautions for the next 4 weeks: 1) no lifting greater than 10 lbs 2) no lifting arm above head or putting arm behind back 3) no showering for 48 hours/ after that try to avoid saturating the pacemaker dressing. You can put a plastic wrap over the dressing and use hand held shower head or put your back towards shower head. - Follow Up Care Current Providers and Referrals: Rod Piedra MD [Medical Doctor] - 01/08/19 9:00 am Luciana Shepard MD [Primary Care Provider] - 12/30/18 11:00 am Kathleen Payne NP [Certified Nurse Practioner] - 01/08/19 11:30 am
--- NOTE | 2019-01-01 17:15 | ASMTCMCOM ---
CM Note CM Note Notes: Patient will be staying in [place] at [address] [facility]. [facility] able to accept, orders sent via [employer], message left for Sugar to confirm. Date Signed: 01/01/2019 05:15 PM Electronically Signed By:Berenice Pierre RN
--- NOTE | 2019-01-01 17:16 | ASDISCHSUM ---
Discharge Information Plan Status:Home with Home Health Medically Cleared to Leave: Discharge Date:01/01/2019 02:49 PM CM D/C Disposition:Home Health Service ADT D/C Disposition:Home, Routine, Self-Care Projected Discharge Date:12/31/2018 11:00 AM Transportation at D/C: Discharge Delay Reason: Follow-Up Date:12/31/2018 11:00 AM Discharge Slot: Final Diagnosis: Placement Information Referral Type:*Home Health Care Services Referral ID:[id number] Provider Name:[facility] (formerly [facility]) Address 1:[address] [address] Address 2: City:[place] Selection Factors: State:[place] Patient Contact Information Contact Name:NUVIA Relationship:Mother Address: Work Phone: City: [facility] Phone: State/Zip Code: Email: Financial Information Financial Class:Medicaid Primary Plan Desc:MEDICAID [facility] [place] Primary Plan Number:[id number] Secondary Plan Desc: Secondary Plan Number: Assessment Information LACE LACE Length of stay for Answers: 7-13 days current admission Acuity / Level of Answers: Yes Care: Did the patient have an inpatient admission? Comorbidities - select Answers: Chronic pulmonary disease all that apply Congestive heart failure Moderate or severe liver or renal disease Other Notes: HTN; HLD # of Emergency department Answers: 1-2 visits in the last 6 months Score: 18 Date Signed: 01/01/2019 05:15 PM Electronically Signed By:Berenice Pierre RN [facility] CM Progress Note CM Note CM Note Notes: Pts case discussed in tx rounds. Pt is a 58 y/o man admitted for dyspnea. Pt is having a picc line placed. Pt will be getting iv lasix for the next couple of days. Pt will most likely d/c independent when medically stable. No therapies ordered at this time. CM made a referral to [facility]. CM available for changes. Plan: Independent Date Signed: 12/23/2018 12:04 PM Electronically Signed By:JOSIAH Killian [facility] Progress Note CM Note CM Note Notes: Discussed pt in rounds. Pt lives independently with roommate, admitted for CHF exacerbation and valvular disease. Pt to have pacer placed on Saturday. Therapies are recommending SNF vs HHC. No referrals have been sent yet. CM to follow. D/C Plan: HHC v SNF Date Signed: 12/27/2018 04:28 PM Electronically Signed By:Anahi Swann [facility] Progress Note CM Note CM Note Notes: CM met w/ pt for dispo planning. PT is recommending HC. Pt is agreeable to using HC services through [facility]. Pts [place] [facility] [place] P[place] is [address] [place] [address]. CM confirmed pts phone number. CM to follow. Plan: [facility]; PT, RN Date Signed: 12/29/2018 04:21 PM Electronically Signed By:JOSIAH Killian [facility] CM Progress Note CM Note CM Note Notes: Patient will be staying in [place] at [address] [facility]. [facility] able to accept, orders sent via [employer], message left for Sugar to confirm. Date Signed: 01/01/2019 05:15 PM Electronically Signed By:Berenice Pierre RN Intervention Information
--- NOTE | 2019-01-02 09:23 | ASMTDCNOTE ---
Case Management Discharge Discharge Order Complete? Answers: Yes Patient to Obtain Answers: via [facility] Transportation Arranged Answers: Family/Friends Faxed Final Orders Answers: Yes Notes: to [facility] HC Agency/Facility Transfer Answers: Yes Notes: to [facility] HC Report Printed & Faxed to Receiving Agency Family Notified Answers: Yes Notes: in room Discharge Comments Notes: 01/02/2019 Case Management Note Pt discharged on 01/01/2019 to family home at [address] [place] [address]. [phone]. Sugar from [facility] onsite, arranged home care visits for pt. Respiratory therapy arranged oxygen. Faxed final orders to [facility]. Date Signed: 01/02/2019 09:22 AM Electronically Signed By:Roxanna Frankel RN
== END 2019-01-01 14:49 | disposition home health service (06) | DRG 161 ==
LOC: F2W 21:36 → OBSVTOIN 22:50
PROVIDERS: ADMIT Internal Medicine; ATTEND Internal Medicine
PROC: 02HV33Z Insertion of Infusion Device into Superior Vena Cava, Percutaneous Approach (ICD-10-PCS; 2018-12-23)
PROC: B2111ZZ Fluoroscopy of Multiple Coronary Arteries using Low Osmolar Contrast (ICD-10-PCS; 2018-12-26)
PROC: 4A023N8 Measurement of Cardiac Sampling and Pressure, Bilateral, Percutaneous Approach (ICD-10-PCS; 2018-12-26)
PROC: 0JH609Z Insertion of Cardiac Resynchronization Defibrillator Pulse Generator into Chest Subcutaneous Tissue and Fascia, Open Approach (ICD-10-PCS; principal; 2018-12-31)
PROC: 02HL3KZ Insertion of Defibrillator Lead into Left Ventricle, Percutaneous Approach (ICD-10-PCS; principal; 2018-12-31)
PROC: 02H63KZ Insertion of Defibrillator Lead into Right Atrium, Percutaneous Approach (ICD-10-PCS; principal; 2018-12-31)
DX: I13.0 Hypertensive heart and chronic kidney disease with heart failure and stage 1 through stage 4 chronic kidney disease, or unspecified chronic kidney disease (principal); I50.23 Acute on chronic systolic (congestive) heart failure; N18.3 Chronic kidney disease, stage 3 (moderate); I42.0 Dilated cardiomyopathy; J44.9 Chronic obstructive pulmonary disease, unspecified; E78.5 Hyperlipidemia, unspecified; E11.9 Type 2 diabetes mellitus without complications; Z87.891 Personal history of nicotine dependence; Z23 Encounter for immunization
CPT/HCPCS: 84484-ER; 86334-90; 96374; 97116-GP; 97161-GP; 97530-GP; C1751; C1760; C1769; C1777; C1882; C1898; C1900; G0008; G0009; J0690; J1644; J1650; J1815; J1940; J2001; J2250; J2370; J2704; J3010; Q9967

== ENCOUNTER → 2019-04-16 | Outpatient (CLI) | payer OTHER, MEDICAID | LOC: BHFA 16:15 ==